=== PATIENT | male | born 1970 | race Caucasian/White ===

== ENCOUNTER 2017-09-13 10:49 | Observation (INO) | payer MEDICAID, SELFPAY ==
[2017-09-13 10:50] VITALS: BP 196/94; PULSE 88; RESP 16; TEMP 36.5; O2SAT 97; BMI 21.1
[2017-09-13 11:20] LABS: Absolute Lymphocyte Count 0.74 X10^3/ul (0.83-4.51); Absolute Neutrophil Count 6.1 X10^3/uL (2.0-7.7); Basophil# 0.08 X10^3/uL; Basophil% 1.1 % (0-1); Eosinophil# 0.03 X10^3/uL; Eosinophils% 0.4 % (0-5); Hematocrit 41.9 % (40-54); Hemoglobin 14.8 g/dl (13.0-16.5); Lymphocyte # 0.74 X10^3/ul (4.0); Lymphocyte % 9.8 % (19-41); Mean Corp Hgb Conc 35.3 g/gl (32-36); Mean Corpuscular Hgb 32.5 pg (27.0-32.0); Mean Corpuscular Volume 91.9 fL (80-94); Mean Platelet Vol. 10.4 fl (6.2-12.0); Monocyte# 0.59 X10^3/uL; Monocyte% 7.8 % (0-10); Neutrophil # 6.07 X10^3/uL (2.7-7.7); Neutrophil % 80.5 % (47-70); Platelet Count 73 K/mm3 (150-450); RBC Distribution Width CV 13.8 % (11.6-14.6); RBC Distribution Width SD 45.5 fl (35.1-43.9); Red Blood Count 4.56 M/mm3 (4.6-6.2); White Blood Count 7.5 K/mm3 (4.4-11.0)
[2017-09-13 11:21] LABS: POSITIVE COUNT NO; POSITIVE DIFFERENTIAL NO; POSITIVE MORPHOLOGY NO
[2017-09-13 11:32] LABS: International Normalized Ratio 0.9; Prothrombin Time (Protime)PT. 12.3 SECONDS (11.7-14.9)
[2017-09-13 11:43] LABS: AST(SGOT) 237 U/L (15-37); Alanine Aminotransfer ALT/SGPT 202 U/L (16-61); Alkaline Phosphatase 137 U/L (45-117); Anion Gap 11 (5-15); BUN 4 mg/dL (7-18); BUN/Creat Ratio 6.2 RATIO (10-20); Calcium,Total 8.8 mg/dL (8.5-10.1); Chloride 90 mmol/L (98-107); Creatinine, Serum 0.65 mg/dL (0.70-1.30); EST Glomerular Filtration Rate 138 mL/min (>60); Est Glom Filt Rate - Afr Amer 167 mL/min (>60); Estimated Creatinine Clearance 135.53 ml/min; Globulin 3.9 g/dL (2.2-4.2); Glucose 107 mg/dL (74-106); Potassium 4.2 mmol/L (3.5-5.1); Protein, Total 7.9 g/dL (6.4-8.2); Sodium Level 125 mmol/L (136-145)
[2017-09-13 12:46] VITALS: BP 174/99; PULSE 80; RESP 16; O2SAT 95
--- NOTE | 2017-09-13 12:49 | ED.DCSUM_ITS ---
- ER Visit Summary Date of Service: 09/13/17 Chief Complaint: Patient states she has not been feeling well for some time. History of Present Illness: The patient is a 47 M who states he feels worse. He states he drank jugs of water. He drank 5-6 jugs of water. He states he drinks 6 beers a day. His last alcohol consumption was last evening. He denies fever, chills night sweats. Denies weight loss. He denies his close being looser than normal. He is a smoker and does admit to cough. He denies any chest pain. He denies nausea, vomiting diarrhea. He reports increased urination. He denies dysuria or hematuria. He complains of tremors tingling sensation and not feeling his normal self. Review of systems otherwise negative. Physical Examination: Vital signs are marked for an elevated blood pressure 196/ 94. Head is atraumatic normocephalic. Pupils are equal round reactive. Extraocular muscles are intact. There is no papilledema and cup-to-disc ratio is normal. TMs are pearly white with landmarks noted. Nares patent with no drainage. Posterior pharynx without erythema or exudate. Uvula is midline. There is no dysphonia or dysphasia. Trachea is midline. There is no stridor with auscultation of the neck. Heart is regular without murmur, gallop or rub. S1 and S2 are normal. Lungs are clear to auscultation with good movement of air bilaterally. Abdomen is soft and nontender. There is no guarding or peritoneal findings. There is no palpable pulsatile mass. There is no abdominal bruit. Zabala sign is negative. Negative Rovsing sign. There is no evidence of inguinal or umbilical hernia. Neuro exam is remarkable for hyper reflexia, 10+ beats of clonus at the ankles. Negative Babinski sign. Motor sensory intact. Cranial 2 through 12 are intact. Gait was observed and normal. He is not well groomed and is closed are healthy. Test Results: CBC is unremarkable. Platelet count was 73,000 most likely secondary to his alcohol use. BMP is remarkable for sodium 125 and a chloride of 90. Hepatic profile reveals a total bili 1.3 alk phos 137 ALT of 202 and AST of 237. INR is 0.9. Emergency Department Course and Treatment: I await patient's tremors need to rule out hyponatremia doubt alcohol withdrawal since he drinks daily at night. Because of his drinking history will obtain PT/INR to evaluate for bleeding disorder/coagulopathy. Treatment Plan: N.p.o. fluid restriction normal saline Disposition: Admit to the hospital Impression: 1. Symptomatic hyponatremia secondary to water intoxication 2. Thrombocytopenia secondary to alcoholism 3. History of alcoholism consumption of 6 beers a day 4. History of tobacco use This note was generated with [employer] dictation software. It may contain incorrect words, spelling, and punctuation that were not noted in review of the chart prior to signing ED Disposition - Plan for ED Patient: Chief Complaint: General Illness
--- NOTE | 2017-09-13 13:09 | PCM.HP.STD ---
Problem List (1) COPD with acute exacerbation Status: Acute (2) Alcohol abuse Status: Chronic (3) Hyponatremia Status: Acute History of Present Illness Date of Admission: 09/13/17 Chief Complaint: shakiness The patient is a 47 year old M who has been under stress the past few weeks as he and his significant other have split up. Today, patient was shaky in arms and legs. Drank several 24 oz glasses of water and presented to the emergency room. In the ED, pt was found to be hyponatremic at 125. The hospitalist was asked to admit for hyponatremia. Pt states that also for the past few weeks that he has been having increasing DUTTON. Whereas previously, he'd be able to ambulate without any difficulty, now he has to stop to catch his breath.[] Past Medical History Past Medical History (Chronic Problems): Chronic Problems Alcohol abuse (Chronic) Allergies No Known Allergies Allergy (Verified 09/13/17 10:52) Home Medications: Ambulatory Orders Medication Instructions Recorded No Known/Unobtainable [No Known 01/03/16 Home Medications] Surgical History: - - left hip surgery and fractured pelvis from [facility] Psychiatric History: No pertinent psych hx Lives: Alone Smoking Status: Heavy Smoker (>10/day) Tobacco Use: Cigarettes Alcohol: Heavy - 6 beers/day Drugs: None - *Family History Maternal History Items: - - anxiety Paternal History Items: Heart Disease, - - father gasoline truck operator and had 2 heart attacks Review of Systems Constitutional: Denies: Chills, Fever, Weight Change Eyes: Denies: Blurred vision, Double vision HEENT: Denies: Head Aches, Sinus Congestion, Sinus Drainage Cardiovascular: Denies: Chest Pain, Palpitations Respiratory: Reports: Shortness of breath upon exertion. Denies: Sputum production Gastrointestinal: Reports: Diarrhea, Nausea. Denies: Vomiting Genitourinary: Denies: Dysuria, Hematuria Musculoskeletal: Denies: Arm Pain, Back Pain, Foot Pain, Hand Pain Skin: Denies: Rash, Wounds Neurological: Denies: Numbness, Tingling, Focal weakness Psychiatric: Denies: Anxiety, Depression Hematologic/ Lymphatic: Denies: Easy Bruising, Easy Bleeding, Hx of blood clot VTE Information - Inpt Only VTE Present on Admission: No VTE Pharm Prophylaxis ordered?: Yes Patient Problems: Active and Suspected Problems COPD with acute exacerbation (Acute) - Physical Exam General: Alert, Cooperative, No apparent distress HEENT: Atraumatic, Normocephalic Oral: Moist Mucosa, No Gingival or Mucosal Lesions/ Ulcerations Neck: No Nodes, Thyroid Normal Size and Texture Lungs: Diminished, Wheezes Cardiovascular: Regular rate, Regular Rhythm, Normal S1, Normal S2, No murmurs Abdomen: Bowel Sounds Present, Soft, Non Tender, Non-Distended Extremities: No edema, No Calf Tenderness Skin: No rashes, No breakdown Musculoskeletal: No Tenderness to Palpation of Joints or Extremities, No Muscle Wasting Neurological: Muscle tone normal Psych/Mental Status: Normal Affect, Appropriate Vital Signs Temp Pulse Resp BP Pulse Ox 36.5 C L 80 16 174/99 H 95 09/13/17 10:50 09/13/17 12:46 09/13/17 12:46 09/13/17 12:46 09/13/17 12:46 Oxygen Delivery Method Room Air Assessment/Plan Active and Suspected Problems COPD with acute exacerbation (Acute) 1. Hyponatremia: not sure if acute or chronic Normal saline check TSH, urine Osm and Na, serum osm due to beer potomania, excess water intake v other 2. AECOPD: never been diagnosed with COPD aerosols, prednisone x 5 follow up with pulmonology 3. Alcohol abuse not sure if tremulousness is related or not CIWA 4. DVT proph: LMWH Code Visit Inpatient E&M: 31116 Init Hosp L3
--- NOTE | 2017-09-13 13:15 | RAD_ITS ---
STUDY: X-RAY CHEST REASON FOR EXAM: Male, 47 years old. 2 week history of shortness of breath. Hyponatremia. TECHNIQUE: PA and lateral views of the chest. COMPARISON: Comparison is made with prior study dated July 17, 2014. FINDINGS: Hyperinflation. Scattered calcified granulomas. There is no demonstrated pleural abnormality. Normal size heart. Normal mediastinum and suleiman. Normal visualized pulmonary arteries. Normal visualized aortic arch and descending thoracic aorta. There are mild degenerative changes of the visualized thoracic spine. Normal visualized ribs, clavicles, and shoulders. There is no demonstrated abnormality of the visualized soft tissue structures of the upper abdomen. RAD/Chest PA and Lateral IMPRESSION: Hyperinflation. No acute abnormality is seen. Electronically Signed: Alex Chu MD at 15:05 EST Tel [phone], Service support ,
--- NOTE | 2017-09-13 13:23 | HP.PCM_ITS ---
Problem List (1) COPD with acute exacerbation Status: Acute (2) Alcohol abuse Status: Chronic (3) Hyponatremia Status: Acute History of Present Illness Date of Admission: 09/13/17 Chief Complaint: shakiness The patient is a 47 year old M who has been under stress the past few weeks as he and his significant other have split up. Today, patient was shaky in arms and legs. Drank several 24 oz glasses of water and presented to the emergency room. In the ED, pt was found to be hyponatremic at 125. The hospitalist was asked to admit for hyponatremia. Pt states that also for the past few weeks that he has been having increasing DUTTON. Whereas previously, he'd be able to ambulate without any difficulty, now he has to stop to catch his breath.[] Past Medical History Past Medical History (Chronic Problems): Chronic Problems Alcohol abuse (Chronic) Allergies No Known Allergies Allergy (Verified 09/13/17 10:52) Home Medications: Ambulatory Orders Medication Instructions Recorded No Known/Unobtainable [No Known 01/03/16 Home Medications] Surgical History: - - left hip surgery and fractured pelvis from [facility] Psychiatric History: No pertinent psych hx Lives: Alone Smoking Status: Heavy Smoker (>10/day) Tobacco Use: Cigarettes Alcohol: Heavy - 6 beers/day Drugs: None - *Family History Maternal History Items: - - anxiety Paternal History Items: Heart Disease, - - father national van truck driver and had 2 heart attacks Review of Systems Constitutional: Denies: Chills, Fever, Weight Change Eyes: Denies: Blurred vision, Double vision HEENT: Denies: Head Aches, Sinus Congestion, Sinus Drainage Cardiovascular: Denies: Chest Pain, Palpitations Respiratory: Reports: Shortness of breath upon exertion. Denies: Sputum production Gastrointestinal: Reports: Diarrhea, Nausea. Denies: Vomiting Genitourinary: Denies: Dysuria, Hematuria Musculoskeletal: Denies: Arm Pain, Back Pain, Foot Pain, Hand Pain Skin: Denies: Rash, Wounds Neurological: Denies: Numbness, Tingling, Focal weakness Psychiatric: Denies: Anxiety, Depression Hematologic/ Lymphatic: Denies: Easy Bruising, Easy Bleeding, Hx of blood clot VTE Information - Inpt Only VTE Present on Admission: No VTE Pharm Prophylaxis ordered?: Yes Patient Problems: Active and Suspected Problems COPD with acute exacerbation (Acute) - Physical Exam General: Alert, Cooperative, No apparent distress HEENT: Atraumatic, Normocephalic Oral: Moist Mucosa, No Gingival or Mucosal Lesions/ Ulcerations Neck: No Nodes, Thyroid Normal Size and Texture Lungs: Diminished, Wheezes Cardiovascular: Regular rate, Regular Rhythm, Normal S1, Normal S2, No murmurs Abdomen: Bowel Sounds Present, Soft, Non Tender, Non-Distended Extremities: No edema, No Calf Tenderness Skin: No rashes, No breakdown Musculoskeletal: No Tenderness to Palpation of Joints or Extremities, No Muscle Wasting Neurological: Muscle tone normal Psych/Mental Status: Normal Affect, Appropriate Vital Signs Temp Pulse Resp BP Pulse Ox 36.5 C L 80 16 174/99 H 95 09/13/17 10:50 09/13/17 12:46 09/13/17 12:46 09/13/17 12:46 09/13/17 12:46 Oxygen Delivery Method Room Air Assessment/Plan Active and Suspected Problems COPD with acute exacerbation (Acute) 1. Hyponatremia: * not sure if acute or chronic * Normal saline * check TSH, urine Osm and Na, serum osm * due to beer potomania, excess water intake v other 2. AECOPD: * never been diagnosed with COPD * aerosols, prednisone x 5 * follow up with pulmonology 3. Alcohol abuse * not sure if tremulousness is related or not * CIWA 4. DVT proph: * LMWH Code Visit Inpatient E&M: 39617 Init Hosp L3
[2017-09-13 13:48] VITALS: BP 150/95; PULSE 62; RESP 18; TEMP 36.7; O2SAT 98
[2017-09-13 13:48] LABS: Thyroid Stim Hormone (TSH) 1.66 uIU/mL (0.358-3.74)
[2017-09-13 13:50] VITALS: BMI 20.7
[2017-09-13 14:51] LABS: Osmolality, Serum 262 mOsm/KG (275-295)
[2017-09-13] MEDS: 0.9% Normal Saline 1,000 ML 125 ML IV (15:01)
[2017-09-13] MEDS: Albuterol 2.5 MG/3 ML VIAL.NEB. INHALATION (15:36)
[2017-09-13 15:37] VITALS: PULSE 77; RESP 16; O2SAT 98; BMI 20.7
[2017-09-13 18:23] LABS: Color, Urine Yellow (Yellow); Glucose, Dipstick Normal (Normal); Ketone-Dipstick Negative (Negative); Leukocyte Esterase-Dipstick Negative /ul (Negative); Nitrite-Dipstick Negative (Negative); Occult Blood-Urine 10 /ul (Negative); Protein-Dipstick Negative (Negative); Specific Gravity, Urine 1.005 (1.002-1.030); Urine Bilirubin Dipstick Negative (Negative); Urine Clarity Clear (Clear); Urine Urobilinogen Normal (Normal)
[2017-09-13 18:29] LABS: Urine Sodium 13 mmol/L (Not Establ.)
[2017-09-13] MEDS: Ipratropium/Albuterol Sulfate 3 ML AMPUL.NEB INHALATION (19:25)
[2017-09-13 19:26] VITALS: PULSE 79; RESP 16
[2017-09-13 19:48] VITALS: BP 123/77; PULSE 80; RESP 16; TEMP 36.8; O2SAT 97
[2017-09-13 22:23] LABS: Osmolality, Urine 74 mOsm/KG
[2017-09-14] MEDS: 0.9% Normal Saline 1,000 ML 125 ML IV ×2 (00:15→06:28)
[2017-09-14 02:00] VITALS: BP 136/88; PULSE 52; RESP 16; TEMP 36.8; O2SAT 99
[2017-09-14 06:28] LABS: AST(SGOT) 181 U/L (15-37); Alanine Aminotransfer ALT/SGPT 177 U/L (16-61); Albumin, Serum 3.3 g/dL (3.2-5.0); Alkaline Phosphatase 147 U/L (45-117); Anion Gap 8 (5-15); BUN 6 mg/dL (7-18); BUN/Creat Ratio 8.4 RATIO (10-20); Calcium,Total 8.5 mg/dL (8.5-10.1); Chloride 101 mmol/L (98-107); Creatinine, Serum 0.71 mg/dL (0.70-1.30); EST Glomerular Filtration Rate 124 mL/min (>60); Est Glom Filt Rate - Afr Amer 151 mL/min (>60); Estimated Creatinine Clearance 119.62 ml/min; Globulin 3.4 g/dL (2.2-4.2); Glucose 99 mg/dL (74-106); Potassium 3.6 mmol/L (3.5-5.1); Protein, Total 6.7 g/dL (6.4-8.2); Sodium Level 138 mmol/L (136-145)
[2017-09-14] MEDS: Ipratropium/Albuterol Sulfate 3 ML AMPUL.NEB INHALATION (06:31)
[2017-09-14 06:32] VITALS: PULSE 70; RESP 16; O2SAT 98
[2017-09-14 08:26] VITALS: BP 147/93; PULSE 67; RESP 18; TEMP 36.9; O2SAT 96
[2017-09-14] MEDS: Folic Acid 1 MG Tablet PO (08:32)
[2017-09-14] MEDS: Enoxaparin 40 MG/0.4 ML Syringe SC (08:32)
[2017-09-14] MEDS: Thiamine Hydrochloride 100 MG Tablet PO (08:32)
--- NOTE | 2017-09-14 08:51 | PCM.PN.HOSP ---
Patient Problems: Active and Suspected Problems COPD with acute exacerbation (Acute) Subjective: Still with tremulousness. States that he is not been short of breath going to the bathroom but has not really exerted himself like he would normally to see if he would get more short of breath. States that he lost his job a few weeks ago and since then has not been drinking as much as he initially reported of 6 drinks per day. States that he goes days without drinking but did have 2 drinks about 2 days ago. Vitals/I&O's: Vital Signs Temp Pulse Resp BP Pulse Ox 36.9 C 67 18 147/93 H 96 09/14/17 08:26 09/14/17 08:26 09/14/17 08:26 09/14/17 08:26 09/14/17 08:26 Oxygen Delivery Method Room Air Weight: 67.2 kg Body Mass Index (BMI) 20.7 Intake and Output for Last 24 Hours 09/12/17 09/13/17 09/14/17 23:59 23:59 23:59 Intake Total 855 / 855 2793 / 2793 Output Total 225 / 225 Balance 630 / 630 2793 / 2793 General: Alert, Cooperative, No apparent distress HEENT: Atraumatic, Normocephalic Neck: No Nodes, Thyroid Normal Size and Texture Lungs: Clear to auscultation, Normal air movement, No rhonchi, No wheeze Cardiovascular: Regular rate, Regular Rhythm, Normal S1, Normal S2, No murmurs Abdomen: Bowel Sounds Present, Soft, Non Tender, Non-Distended, No Hepato-splenomegaly, Passing Flatus Extremities: No edema, No Calf Tenderness Skin: No rashes, No breakdown Psych/Mental Status: Normal Affect, Appropriate Microbiology Past 72 Hours 09/13/17 16:45 Stool C. difficile DNA Amplification - Final Laboratory Results 09/13/17 17:50: Urine Color Yellow, Urine Clarity Clear, Urine pH 7.0, Ur Specific [place] 1.005, Urine Protein Negative, Urine Glucose (UA) Normal, Urine Ketones Negative, Urine Occult Blood 10 H, Urine Nitrite Negative, Urine Bilirubin Negative, Urine Urobilinogen Normal, Ur Leukocyte Esterase Negative 09/13/17 17:50: Urine Osmolality 74 09/13/17 17:50: Ur Random Sodium 13 09/14/17 05:43: Sodium 138, Potassium 3.6, Chloride 101, Carbon Dioxide 29.0, Anion Gap 8, BUN 6 L, Creatinine 0.71, Estim Creat Clear Calc 119.62, Est GFR (MDRD) Af Amer 151, Est GFR (MDRD) Non-Af 124, BUN/Creatinine Ratio 8.4 L, Glucose 99, Calcium 8.5, Total Bilirubin 1.00, AST 181 H, ALT 177 H, Alkaline Phosphatase 147 H, Total Protein 6.7, Albumin 3.3, Globulin 3.4, Albumin/Globulin Ratio 1.0 Current Medications Acetaminophen (Tylenol) 650 mg PO Q6H PRN PRN PRN Reason: Mild Pain (1-3)/Temp > 100.7 F Albuterol Sulfate (Ventolin Aerosols) 2.5 mg INHALATION Q2H PRN PRN PRN Reason: SHORTNESS OF BREATH Last Admin: 09/13/17 15:36 Dose: 2.5 mg Albuterol/Ipratropium (Duoneb) 3 ml INHALATION Q6HWA.RT [facility] Last Admin: 09/14/17 06:31 Dose: 3 ml Enoxaparin Sodium (Lovenox) 40 mg SC DAILY@1000 [facility] Last Admin: 09/14/17 08:32 Dose: 40 mg Folic Acid (Folic Acid) 1 mg PO DAILY@0800 [facility] Last Admin: 09/14/17 08:32 Dose: 1 mg Sodium Chloride () 1,000 mls @ 125 mls/hr IV .Q8H [facility] Last Admin: 09/14/17 06:28 Dose: 125 mls/hr Lorazepam (Ativan) 2 mg PO Q2H PRN PRN; Protocol PRN Reason: CIWA score > 8 but <15 Lorazepam (Ativan) 2 mg PO UD PRN; Protocol PRN Reason: CIWA score >/=15. Magnesium Hydroxide (Milk Of Magnesia) 30 ml PO DAILY PRN PRN PRN Reason: Constipation Ondansetron HCl (Zofran) 4 mg IV Q8H PRN PRN PRN Reason: NAUSEA Prednisone (Prednisone) 40 mg PO DAILY@0800 [facility] Last Admin: 09/14/17 08:32 Dose: 40 mg [facility]) [facility] Last Admin: 09/14/17 08:32 Dose: 100 mg Assessment/Plan Active and Suspected Problems COPD with acute exacerbation (Acute) 1. Hyponatremia: Resolved with IV fluids. Have been related with his copious ingestion of free water Recommend further outpatient follow-up in regards to this. TSH was normal 2. AECOPD: never been diagnosed with COPD aerosols, prednisone x 5 follow up with pulmonology Albuterol MDI 3. Alcohol abuse not sure if tremulousness is related or not Patient states that he is only a couple beers intermittently since losing his job a few weeks ago. Patient's liver function tests were slightly more elevated upon admission than they are today and actually improved. Not sure if this is related with acute alcohol ingestion or not. I have advised patient not to drink any further and to have further follow-up in regards to his liver function test. 4. Tremulousness The patient still ongoing but is able to shake my hand without obvious tremors. Unclear etiology of this patient still reporting this despite correction of his sodium. Patient I do not feel is going to acute alcohol withdrawal that would explain his tremors as well. Could be anxiety but would further outpatient follow-up with primary care doctor in perhaps further direct him to other testing or specialist. Discharge home.
--- NOTE | 2017-09-14 08:56 | PN_ITS ---
Patient Problems: Active and Suspected Problems COPD with acute exacerbation (Acute) Subjective: Still with tremulousness. States that he is not been short of breath going to the bathroom but has not really exerted himself like he would normally to see if he would get more short of breath. States that he lost his job a few weeks ago and since then has not been drinking as much as he initially reported of 6 drinks per day. States that he goes days without drinking but did have 2 drinks about 2 days ago. Vitals/I&O's: Vital Signs Temp Pulse Resp BP Pulse Ox 36.9 C 67 18 147/93 H 96 09/14/17 08:26 09/14/17 08:26 09/14/17 08:26 09/14/17 08:26 09/14/17 08:26 Oxygen Delivery Method Room Air Weight: 67.2 kg Body Mass Index (BMI) 20.7 Intake and Output for Last 24 Hours 09/12/17 09/13/17 09/14/17 23:59 23:59 23:59 Intake Total 855 / 855 2793 / 2793 Output Total 225 / 225 Balance 630 / 630 2793 / 2793 General: Alert, Cooperative, No apparent distress HEENT: Atraumatic, Normocephalic Neck: No Nodes, Thyroid Normal Size and Texture Lungs: Clear to auscultation, Normal air movement, No rhonchi, No wheeze Cardiovascular: Regular rate, Regular Rhythm, Normal S1, Normal S2, No murmurs Abdomen: Bowel Sounds Present, Soft, Non Tender, Non-Distended, No Hepato- splenomegaly, Passing Flatus Extremities: No edema, No Calf Tenderness Skin: No rashes, No breakdown Psych/Mental Status: Normal Affect, Appropriate Microbiology Past 72 Hours 09/13/17 16:45 Stool C. difficile DNA Amplification - Final Laboratory Results 09/13/17 17:50: Urine Color Yellow, Urine Clarity Clear, Urine pH 7.0, Ur Specific [place] 1.005, Urine Protein Negative, Urine Glucose (UA) Normal, Urine Ketones Negative, Urine Occult Blood 10 H, Urine Nitrite Negative, Urine Bilirubin Negative, Urine Urobilinogen Normal, Ur Leukocyte Esterase Negative 09/13/17 17:50: Urine Osmolality 74 09/13/17 17:50: Ur Random Sodium 13 09/14/17 05:43: Sodium 138, Potassium 3.6, Chloride 101, Carbon Dioxide 29.0, Anion Gap 8, BUN 6 L, Creatinine 0.71, Estim Creat Clear Calc 119.62, Est GFR ( MDRD) Af Amer 151, Est GFR (MDRD) Non-Af 124, BUN/Creatinine Ratio 8.4 L, Glucose 99, Calcium 8.5, Total Bilirubin 1.00, AST 181 H, ALT 177 H, Alkaline Phosphatase 147 H, Total Protein 6.7, Albumin 3.3, Globulin 3.4, Albumin/ Globulin Ratio 1.0 Current Medications Acetaminophen (Tylenol) 650 mg PO Q6H PRN PRN PRN Reason: Mild Pain (1-3)/Temp > 100.7 F Albuterol Sulfate (Ventolin Aerosols) 2.5 mg INHALATION Q2H PRN PRN PRN Reason: SHORTNESS OF BREATH Last Admin: 09/13/17 15:36 Dose: 2.5 mg Albuterol/Ipratropium (Duoneb) 3 ml INHALATION Q6HWA.RT [facility] Last Admin: 09/14/17 06:31 Dose: 3 ml Enoxaparin Sodium (Lovenox) 40 mg SC DAILY@1000 [facility] Last Admin: 09/14/17 08:32 Dose: 40 mg Folic Acid (Folic Acid) 1 mg PO DAILY@0800 [facility] Last Admin: 09/14/17 08:32 Dose: 1 mg Sodium Chloride () 1,000 mls @ 125 mls/hr IV .Q8H [facility] Last Admin: 09/14/17 06:28 Dose: 125 mls/hr Lorazepam (Ativan) 2 mg PO Q2H PRN PRN; Protocol PRN Reason: CIWA score > 8 but <15 Lorazepam (Ativan) 2 mg PO UD PRN; Protocol PRN Reason: CIWA score >/=15. Magnesium Hydroxide (Milk Of Magnesia) 30 ml PO DAILY PRN PRN PRN Reason: Constipation Ondansetron HCl (Zofran) 4 mg IV Q8H PRN PRN PRN Reason: NAUSEA Prednisone (Prednisone) 40 mg PO DAILY@0800 [facility] Last Admin: 09/14/17 08:32 Dose: 40 mg [facility]) [facility] Last Admin: 09/14/17 08:32 Dose: 100 mg Assessment/Plan Active and Suspected Problems COPD with acute exacerbation (Acute) 1. Hyponatremia: * Resolved with IV fluids. * Have been related with his copious ingestion of free water * Recommend further outpatient follow-up in regards to this. * TSH was normal 2. AECOPD: * never been diagnosed with COPD * aerosols, prednisone x 5 * follow up with pulmonology * Albuterol MDI 3. Alcohol abuse * not sure if tremulousness is related or not * Patient states that he is only a couple beers intermittently since losing his job a few weeks ago. Patient's liver function tests were slightly more elevated upon admission than they are today and actually improved. Not sure if this is related with acute alcohol ingestion or not. I have advised patient not to drink any further and to have further follow-up in regards to his liver function test. 4. Tremulousness * The patient still ongoing but is able to shake my hand without obvious tremors. * Unclear etiology of this patient still reporting this despite correction of his sodium. Patient I do not feel is going to acute alcohol withdrawal that would explain his tremors as well. Could be anxiety but would further outpatient follow-up with primary care doctor in perhaps further direct him to other testing or specialist. Discharge home.
--- NOTE | 2017-09-14 09:00 | PCM.DC ---
- Discharge Diagnoses Current Active Problems: Current Active and Chronic Problems COPD with acute exacerbation (Acute) Alcohol abuse (Chronic) You will use the following diet at home:: No restrictions Your food should be the consistency of: Regular Your liquids should be the consistency of: Regular/Thin Discharge Activity: Return to Normal Activity Call your doctor if you observe: Fever of 101 or Higher, Shortness of breath Allergies/Adverse Reactions: Allergies No Known Allergies Allergy (Verified 09/13/17 10:52) Medications to take at Discharge Albuterol Inhaler [Ventolin Hfa] 1 - 2 puff INHALATION Q4H PRN PRN #1 inhaler 09/14/17 Nicotine [Nicotine Patch] 1 ea TD DAILY #14 patch.[id number] 09/14/17 Prednisone 4 tab PO DAILY #12 tab 09/14/17 The following prescriptions were given: Albuterol Inhaler [Ventolin Hfa] 1 - 2 puff INHALATION Q4H PRN PRN #1 inhaler PRN Reason: Shortness Of Breath Nicotine [Nicotine Patch] 1 ea TD DAILY #14 patch.[id number] Prednisone 4 tab PO DAILY #12 tab Primary Care Physician: Care Physician,No Primary [Primary Care Provider] - Please Follow Up With: Radha Seaman MD - call for appointment [phone] When: 2 weeks Proposed Discharge Date: 09/14/17
--- NOTE | 2017-09-14 09:09 | DCINST_ITS ---
- Discharge Diagnoses Current Active Problems: Current Active and Chronic Problems COPD with acute exacerbation (Acute) Alcohol abuse (Chronic) You will use the following diet at home:: No restrictions Your food should be the consistency of: Regular Your liquids should be the consistency of: Regular/Thin Discharge Activity: Return to Normal Activity Call your doctor if you observe: Fever of 101 or Higher, Shortness of breath Allergies/Adverse Reactions: Allergies No Known Allergies Allergy (Verified 09/13/17 10:52) Medications to take at Discharge Albuterol Inhaler [Ventolin Hfa] 1 - 2 puff INHALATION Q4H PRN PRN #1 inhaler Nicotine [Nicotine Patch] 1 ea TD DAILY #14 patch.[id number] 09/14/17 Prednisone 4 tab PO DAILY #12 tab 09/14/17 The following prescriptions were given: Albuterol Inhaler [Ventolin Hfa] 1 - 2 puff INHALATION Q4H PRN PRN #1 inhaler PRN Reason: Shortness Of Breath Nicotine [Nicotine Patch] 1 ea TD DAILY #14 patch.[id number] Prednisone 4 tab PO DAILY #12 tab Primary Care Physician: Care Physician,No Primary [Primary Care Provider] - Please Follow Up With: Radha Seaman MD - call for appointment [phone] When: 2 weeks Proposed Discharge Date: 09/14/17
--- NOTE | 2017-09-14 09:10 | PCM.DC.SUM ---
Discharge Date and Diagnosis - Problem List Patient Problems: Active and Suspected Problems COPD with acute exacerbation (Acute) Hyponatremia (Acute) Date of Admission: 09/13/17 Date of Discharge: 09/14/17 - Primary Discharge Diagnosis Active and Suspected Problems COPD with acute exacerbation (Acute) - Secondary Discharge Diagnosis Chronic Problems Alcohol abuse (Chronic) Hospital Course and Treatment Imaging Results: Clinical Impression(s) from Imaging Studies Chest X-Ray 09/13/17 13:15 IMPRESSION: Hyperinflation. No acute abnormality is seen. Electronically Signed: Alex Chu MD at 15:05 EST Tel [phone], Service support , Operations: None Procedures: None Summary of Care Provided: The patient is a 47 year old M is with tremulousness. Prior to his coming to the emergency room, patient consumed several large quantities of water. Patient's sodium is 125. Concern from the emergency room physician was that patient had a stress test due to his hyponatremia. Patient was brought in and started on saline. And that the patient sodiums was likely due to an consuming a large amount of free water but did not explain his tremulousness as he still has it. We will check a TSH which was normal so he is not hyper or hypothyroid to be causing that as well. Patient has recently undergone some changes into his life having lost his job and split up from his significant other in the past few weeks. Possible could be anxiety related as well. But patient does also complain of some shortness of breath with exertion. On exam patient did have some audible expiratory wheezes. Chest x-ray shows some hyperinflation. Concern is the patient has underlying COPD as he is an active smoker. Patient will be continued on the 5 days of prednisone which was started on the seventh. Patient will need outpatient lab work with a BMP and also LFTs. Patient did have some slightly elevated LFTs upon admission. Probably feel there is a related with alcohol but but those are slightly improved. I have not provide the patient any prescription as he does not have a primary care provider. Given the patient information for primary care for his provider to follow-up with if he so chooses also have recommended he follow-up with pulmonology as well in regards to further evaluation to verify the patient does have COPD or not. Vision expressed understanding of the instructions that I provided him. [] Discharge Diet: No Restrictions Discharge Activity: Return to Normal Activity Call your doctor if you observe: Fever of 101 or Higher, Shortness of breath Home Medications: Medications to take at Discharge Albuterol Inhaler [Ventolin Hfa] 1 - 2 puff INHALATION Q4H PRN PRN #1 inhaler 09/14/17 Nicotine [Nicotine Patch] 1 ea TD DAILY #14 patch.[email or web address] 09/14/17 Prednisone 4 tab PO DAILY #12 tab 09/14/17 Following Prescrptions Were Given to Patient: Albuterol Inhaler [Ventolin Hfa] 1 - 2 puff INHALATION Q4H PRN PRN #1 inhaler PRN Reason: Shortness Of Breath Nicotine [Nicotine Patch] 1 ea TD DAILY #14 patch.[email or web address] Prednisone 4 tab PO DAILY #12 tab Primary Care Physician: Care Physician,No Primary [Primary Care Provider] - Please Follow Up With: Radha Seaman MD - call for appointment [phone] When: 2 weeks Please Follow Up With: Asaf Graham MD - Pulmonolgy When: 1-2 months Disposition: Home Minutes spent on discharge:: 32 Patient Condition:: Fair Meaningful Use Info Meaningful Use Diagnoses (Choose all that apply): None applicable Code Visit Inpatient E&M: 61941 Disch Hosp
--- NOTE | 2017-09-14 09:15 | DS.PCM_ITS ---
Discharge Date and Diagnosis - Problem List Patient Problems: Active and Suspected Problems COPD with acute exacerbation (Acute) Hyponatremia (Acute) Date of Admission: 09/13/17 Date of Discharge: 09/14/17 - Primary Discharge Diagnosis Active and Suspected Problems COPD with acute exacerbation (Acute) - Secondary Discharge Diagnosis Chronic Problems Alcohol abuse (Chronic) Hospital Course and Treatment Imaging Results: Clinical Impression(s) from Imaging Studies Chest X-Ray 09/13/17 13:15 IMPRESSION: Hyperinflation. No acute abnormality is seen. Electronically Signed: Alex Chu MD at 15:05 EST Tel [phone], Service support , Operations: None Procedures: None Summary of Care Provided: The patient is a 47 year old M is with tremulousness. Prior to his coming to the emergency room, patient consumed several large quantities of water. Patient 's sodium is 125. Concern from the emergency room physician was that patient had a stress test due to his hyponatremia. Patient was brought in and started on saline. And that the patient sodiums was likely due to an consuming a large amount of free water but did not explain his tremulousness as he still has it. We will check a TSH which was normal so he is not hyper or hypothyroid to be causing that as well. Patient has recently undergone some changes into his life having lost his job and split up from his significant other in the past few weeks. Possible could be anxiety related as well. But patient does also complain of some shortness of breath with exertion. On exam patient did have some audible expiratory wheezes. Chest x-ray shows some hyperinflation. Concern is the patient has underlying COPD as he is an active smoker. Patient will be continued on the 5 days of prednisone which was started on the seventh. Patient will need outpatient lab work with a BMP and also LFTs. Patient did have some slightly elevated LFTs upon admission. Probably feel there is a related with alcohol but but those are slightly improved. I have not provide the patient any prescription as he does not have a primary care provider. Given the patient information for primary care for his provider to follow-up with if he so chooses also have recommended he follow-up with pulmonology as well in regards to further evaluation to verify the patient does have COPD or not. Vision expressed understanding of the instructions that I provided him. [ ] Discharge Diet: No Restrictions Discharge Activity: Return to Normal Activity Call your doctor if you observe: Fever of 101 or Higher, Shortness of breath Home Medications: Medications to take at Discharge Albuterol Inhaler [Ventolin Hfa] 1 - 2 puff INHALATION Q4H PRN PRN #1 inhaler Nicotine [Nicotine Patch] 1 ea TD DAILY #14 patch.[email or web address] 09/14/17 Prednisone 4 tab PO DAILY #12 tab 09/14/17 Following Prescrptions Were Given to Patient: Albuterol Inhaler [Ventolin Hfa] 1 - 2 puff INHALATION Q4H PRN PRN #1 inhaler PRN Reason: Shortness Of Breath Nicotine [Nicotine Patch] 1 ea TD DAILY #14 patch.[email or web address] Prednisone 4 tab PO DAILY #12 tab Primary Care Physician: Care Physician,No Primary [Primary Care Provider] - Please Follow Up With: Radha Seaman MD - call for appointment [phone] When: 2 weeks Please Follow Up With: Asaf Graham MD - Pulmonolgy When: 1-2 months Disposition: Home Minutes spent on discharge:: 32 Patient Condition:: Fair Meaningful Use Info Meaningful Use Diagnoses (Choose all that apply): None applicable Code Visit Inpatient E&M: 63967 Disch Hosp
== END 2017-09-14 10:40 | disposition home or self-care (01) | DRG 191 ==
LOC: ED 11:11 → MS2 12:38
PROVIDERS: Emergency Provider Emergency Medicine
DX: J44.1 Chronic obstructive pulmonary disease with (acute) exacerbation (principal); E87.1 Hypo-osmolality and hyponatremia; F17.210 Nicotine dependence, cigarettes, uncomplicated; F10.10 Alcohol abuse, uncomplicated; D69.59 Other secondary thrombocytopenia
CPT/HCPCS: 36415; 71046; 80053; 81002; 83930; 83935; 84300; 84443; 85025; 85610; 87493; 94640; 96360; 96361; 96372; 97802; 99218; 99285; J7030; A4216; G0378

== ENCOUNTER 2018-11-16 02:57 | Emergency (ER) | payer SELFPAY ==
[2018-11-16 02:58] VITALS: BP 128/96; PULSE 98; RESP 18; TEMP 36.4; O2SAT 93; BMI 23.1
--- NOTE | 2018-11-16 03:18 | EKG12_ITS ---
Test Reason : Blood Pressure : / mmHG Vent. Rate : 081 BPM Atrial Rate : 081 BPM P-R Int : 172 ms QRS Dur : 096 ms QT Int : 386 ms P-R-T Axes : 086 083 060 degrees QTc Int : 448 ms Normal sinus rhythm Septal infarct , age undetermined Abnormal ECG Confirmed by ALEJO BOLANOS ([id number]), field map editor ROD GALVEZ ([id number]) on 11/19/2018 2:03:31 PM Referred By: TRISH Confirmed By:ALEJO BOLANOS
--- NOTE | 2018-11-16 03:20 | CT_ITS ---
STUDY: CTA OF THE ABDOMINAL AORTA AND BILATERAL LOWER EXTREMITIES REASON FOR EXAM: Male, 48 years old. Left leg numbness. RADIATION DOSAGE (If Supplied By Facility): CTDIvol = ( 9.52 ) mGy, DLP = ( 1256.25 ) mGycm TECHNIQUE: Axial CT angiography multi-detector data acquisition was obtained from the the upper abdomen to the ankle following intravenous administration of 100ML IV Isovue 370. Axial images and MIP images were reconstructed from the axial data set. Post-processing of the angiographic images was performed, with multiplanar reformation and 3D reconstruction. Individualized dose optimization techniques were used for this CT. TECHNICAL QUALITY: Good COMPARISON: None. Descriptors of Narrowing: None (0%) Mild (< 50%) Moderate (50-70%) Severe (70-90%) Subtotal/Total Occlusion (90-100%) Non-Evaluable (technically non-diagnostic FINDINGS: Abdominal aorta: Mild atherosclerotic changes. No demonstrated narrowing. Left renal artery(arteries): Mild atherosclerotic changes. No demonstrated narrowing Right common iliac artery: Mild atherosclerotic changes. No demonstrated narrowing Right external iliac artery: Mild atherosclerotic changes. No demonstrated narrowing Right internal iliac artery: Mild atherosclerotic changes. No demonstrated narrowing Left common iliac artery: There is occlusion of the left common iliac artery most likely due to thrombus Left external iliac artery: There is occlusion of the proximal left external iliac artery also consistent with a thrombus. Left internal iliac artery: There is occlusion of the origin of the left internal iliac artery also consistent with a thrombus. RIGHT LOWER EXTREMITY Right common femoral artery: Mild atherosclerotic changes. No demonstrated narrowing Right profundus femoris: No demonstrated narrowing. Right superficial femoral: No demonstrated narrowing. Right popliteal artery: Mild atherosclerotic changes. No demonstrated narrowing Right tibioperoneal trunk: No demonstrated narrowing. Right anterior tibial artery: No demonstrated narrowing. Right posterior tibial artery: No demonstrated narrowing. Right peroneal artery: No demonstrated narrowing. LEFT LOWER EXTREMITY Left common femoral artery: Mild atherosclerotic changes. No demonstrated narrowing Left profundus femoris: No demonstrated narrowing. Left superficial femoral: No demonstrated narrowing. Left popliteal artery: No demonstrated narrowing. Left tibioperoneal trunk: Mild atherosclerotic changes. No demonstrated narrowing Left anterior tibial artery: No demonstrated narrowing. Left posterior tibial artery: No demonstrated narrowing. Left peroneal artery: No demonstrated narrowing. There is fatty infiltration of the liver. The visualized part of the pancreas, kidneys, spleen show no abnormality. Old healed fractures are seen in the right and left pubic rami. CT/CTA Abd w/Runoff W/WO Contrast IMPRESSION: There is occlusion of the left common iliac artery, left external iliac artery and proximal part of left internal iliac artery due to a thrombus. There is reconstitution of the distal left external iliac artery by collaterals. Electronically Signed: Vern Mcgill, at 5:12 EDT Tel , Service support ,
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
[2018-11-16 03:30] LABS: Absolute Lymphocyte Count 3.63 X10^3/ul (0.83-4.51); Absolute Neutrophil Count 3.9 X10^3/uL (2.0-7.7); Basophil# 0.06 X10^3/uL; Basophil% 0.7 % (0-1); Eosinophil# 0.15 X10^3/uL; Eosinophils% 1.8 % (0-5); Hematocrit 47.3 % (40-54); Hemoglobin 16.6 g/dl (13.0-16.5); Lymphocyte # 3.63 X10^3/ul (4.0); Lymphocyte % 43.2 % (19-41); Mean Corp Hgb Conc 35.1 g/gl (32-36); Mean Corpuscular Hgb 31.5 pg (27.0-32.0); Mean Corpuscular Volume 89.8 fL (80-94); Mean Platelet Vol. 9.5 fl (6.2-12.0); Monocyte# 0.68 X10^3/uL; Monocyte% 8.1 % (0-10); Neutrophil # 3.87 X10^3/uL (2.7-7.7); Platelet Count 144 K/mm3 (150-450); RBC Distribution Width CV 14.2 % (11.6-14.6); RBC Distribution Width SD 46.7 fl (35.1-43.9); Red Blood Count 5.27 M/mm3 (4.6-6.2); White Blood Count 8.4 K/mm3 (4.4-11.0)
[2018-11-16 03:31] LABS: POSITIVE COUNT NO; POSITIVE DIFFERENTIAL NO; POSITIVE MORPHOLOGY NO
[2018-11-16 03:38] LABS: International Normalized Ratio 1.1; Prothrombin Time (Protime)PT. 13.5 SECONDS (11.7-14.9)
[2018-11-16 03:39] LABS: Partial Thromboplast Time 26.1 Seconds (24.1-36.2)
[2018-11-16 03:45] LABS: Anion Gap 16 (5-15); BUN 5 mg/dL (7-18); BUN/Creat Ratio 6.2 RATIO (10-20); Calcium,Total 8.8 mg/dL (8.5-10.1); Chloride 101 mmol/L (98-107); Creatinine, Serum 0.81 mg/dL (0.70-1.30); EST Glomerular Filtration Rate 107 mL/min (>60); Est Glom Filt Rate - Afr Amer 130 mL/min (>60); Estimated Creatinine Clearance 119.29 ml/min; Glucose 111 mg/dL (74-106); Potassium 3.7 mmol/L (3.5-5.1); Sodium Level 139 mmol/L (136-145)
[2018-11-16] MEDS: 0.9% Normal Saline 1,000 ML 1000 ML IV (03:55)
[2018-11-16 04:28] LABS: Lactic Acid 4.7 mmol/L (0.4-2.0)
[2018-11-16] MEDS: Morphine 4 MG/ML Syringe IV ×2 (04:32→05:24)
[2018-11-16 04:33] VITALS: BP 143/68; PULSE 83; RESP 16; O2SAT 98
[2018-11-16] MEDS: Heparin Injection (Vial) 5,000 UNIT/ML VIAL 4000 UNIT IV (05:16)
[2018-11-16] MEDS: HEPARIN/D5w 25,000 UNITS 25,000 UNITS/250 ML IV.SOLN. 9 UNITS IV (05:18)
[2018-11-16 05:25] VITALS: BP 143/91; PULSE 87; RESP 16; O2SAT 98
[2018-11-16] MEDS: 0.9% Normal Saline 1,000 ML 150 ML IV (05:25)
--- NOTE | 2018-11-16 05:28 | ED.RN ---
[facility] NO ALS CREW AVAILABLE, [facility] REFUSED, [facility] IS NOT AVAILABLE, [facility] IS NOT FLYING D/T WEATHER
--- NOTE | 2018-11-16 05:36 | ED.RN ---
[facility] FL[facility]. [facility]
[2018-11-16 06:10] VITALS: BP 143/91; PULSE 87; RESP 16; TEMP 36.4; O2SAT 98
[2018-11-16 07:57] LABS: Reflex Lactate? Y
== END 2018-11-16 06:10 | disposition short-term general hospital (02) ==
PROVIDERS: Emergency Provider Emergency Medicine
DX: I74.5 Embolism and thrombosis of iliac artery (principal); F17.210 Nicotine dependence, cigarettes, uncomplicated; F10.10 Alcohol abuse, uncomplicated; Y90.9 Presence of alcohol in blood, level not specified
CPT/HCPCS: 75635; 80048; 83605; 85025; 85610; 85730; 93005; 96361; 96365; 96375; 96376; 99285; J7030; Q9967; A4216

== ENCOUNTER 2019-10-12 11:41 | Inpatient (IN) | payer SELFPAY ==
[2019-10-12] VITALS (18 sets, daily range): BP systolic 92–152; BP diastolic 66–104; PULSE 88–114; RESP 17–25; TEMP 36.7–36.9; O2SAT 90–99; BMI 21.7; BMI 19.8; BMI 19.9
--- NOTE | 2019-10-12 12:15 | CT_ITS ---
STUDY: CT ABDOMEN AND PELVIS WITH CONTRAST REASON FOR EXAM: Male, 49 years old. Pain. Vomiting. RADIATION DOSAGE (If Supplied By Facility): CTDIvol = ( 10.20 ) mGy, DLP = ( 563.43 ) mGycm TECHNIQUE: Transaxial images were obtained from the dome of the diaphragm to the symphysis pubis without oral contrast. 100 ml of Isovue-300 contrast was administered. Sagittal and coronal images were reconstructed. Individualized dose optimization techniques were used for this CT. COMPARISON: 11/16/2018 FINDINGS: Evaluation is limited by patient motion. The visualized lung bases are clear. The visualized portions of the heart and pericardium are within normal limits. There are no calcified gallstones present. The liver is low in density, consistent with fatty infiltration. The spleen is normal in size. The pancreas is within normal limits. The adrenal glands are within normal limits. There are no renal or ureteral stones. There is no hydronephrosis. There are no focal renal lesions. Normal visualized stomach. There is no bowel obstruction or inflammation. The appendix is not visualized, but there are no findings to suggest acute appendicitis. The aorta is normal in caliber. There are atherosclerotic calcifications noted in the aorta and its branches. The urinary bladder appears thick walled. This may be due to underdistention, but clinical correlation is recommended to evaluate for cystitis. There is no abdominal or pelvic free air, free fluid, fluid collection or lymphadenopathy. There are no destructive osseous lesions. CT/Abdomen/Pelvis W IV Cont ONLY IMPRESSION: Thick-walled urinary bladder which may be due to under distention or cystitis. Clinical correlation is recommended. Normal kidneys. No hydronephrosis. No bowel obstruction or inflammation. Fatty liver. Electronically Signed: Brandt Gu, at 15:32 EDT Tel , Service support ,
--- NOTE | 2019-10-12 12:25 | NURSING ---
THIS RN ENTERED RM. PT SEIZING. ASSISTANCE FROM ADDITIONAL RN'S. PT ROLLED TO SIDE. SUCTIONED. SEUURE PADS , MONITOR APPLIED. DR AWARE. PT MEDICATED. WILL CONTINUE TO MONITOR.
--- NOTE | 2019-10-12 12:26 | CT_ITS ---
STUDY: CT BRAIN WITHOUT CONTRAST REASON FOR EXAM: Male, 49 years old. Pain. Vomiting. RADIATION DOSAGE (If Supplied By Facility): CTDIvol = ( 44.99 ) mGy, DLP = ( 1592.22 ) mGycm TECHNIQUE: Transaxial CT imaging of the brain was performed without administration of intravenous contrast material. Individualized dose optimization techniques were used for this CT. COMPARISON: None. FINDINGS: There is no acute bleed or infarct. There are normal white matter tracts. The ventricles are normal in configuration. There is no hydrocephalus. The visualized paranasal sinuses are clear. The mastoid air cells are well aerated. There is no skull fracture. CT/Brain/Head without Contrast IMPRESSION: No acute intracranial abnormality. Electronically Signed: Brandt Gu, at 15:40 EDT Tel , Service support ,
[2019-10-12] MEDS: 0.9% Normal Saline 1,000 ML 1000 ML IV (12:31)
[2019-10-12] MEDS: LORazepam 2 MG/ML Syringe IV (12:31)
[2019-10-12] MEDS: Ondansetron 4 MG/2 ML Vial IV (12:32)
[2019-10-12 12:45] LABS: Absolute Lymphocyte Count 0.47 X10^3/uL (0.83-4.51); Absolute Neutrophil Count 3.5 X10^3/uL (2.0-7.7); Basophil# 0.03 X10^3/uL; Basophil% 0.7 % (0-1); Eosinophil# 0.08 X10^3/uL; Eosinophils% 1.8 % (0-5); Hematocrit 33.5 % (40-54); Hemoglobin 12.3 g/dL (13.0-16.5); Lymphocyte # 0.47 X10^3/ul (4.0); Lymphocyte % 10.5 % (19-41); Mean Corp Hgb Conc 36.7 g/dL (32-36); Mean Corpuscular Hgb 33.5 pg (27.0-32.0); Mean Corpuscular Volume 91.3 fL (80-94); Mean Platelet Vol. 11.1 fl (6.2-12.0); Monocyte# 0.35 X10^3/uL; Monocyte% 7.8 % (0-10); NRBC Flagged by Analyzer 0 % (0-5); Neutrophil # 3.51 X10^3/uL (2.7-7.7); Neutrophil % 78.8 % (47-70); POSITIVE COUNT YES; POSITIVE DIFFERENTIAL YES; POSITIVE MORPHOLOGY YES; RBC Distribution Width CV 12.4 % (11.6-14.6); RBC Distribution Width SD 41.1 fl (35.1-43.9); Red Blood Count 3.67 M/mm3 (4.6-6.2); White Blood Count 4.5 K/mm3 (4.4-11.0)
--- NOTE | 2019-10-12 12:45 | ED.DCSUM_ITS ---
- ER Visit Summary Date of Service: 10/12/19 Chief Complaint: Abdominal pain History of Present Illness: The patient is a 49 M with no primary care physician. He is a poor informant. He reports that he has periumbilical abdominal pain that began 3 to 4 weeks ago. Is a continuous cramping pain is 10-10 severity. Is worsened by movement or food. Is relieved by remaining still pretty reports is been nauseated and vomited 3 times today. No blood in his emesis. He also has had 3-4 episodes of diarrhea today. He reports his stool has been black and green. No blood in his stools. He complains of dysuria, but no frequency. Patient denies any fever or chills. Does report he had a cough for the past 3 to 4 weeks is productive of brown sputum. He also reports has been short of breath over the past 4 weeks. Patient does have a history of alcohol abuse. However, he tells me that he has not had a drink for the past 6 months. Physical Examination: Vitals: 98.5, 150/73, 92, 17, 90% on room air which is not hypoxic. General: Well-nourished and well-developed. Unkempt. Head: Normocephalic atraumatic. Neck: Supple, no lymphadenopathy. No JVD. Nontender. Cardiovascular: Regular rate and rhythm. No murmurs. Respiratory: No respiratory distress. Clear to auscultation bilaterally. Abdominal: Soft, mild periumbilical tenderness to palpation, nondistended, normal bowel sounds. No guarding, rebound, or peritoneal signs. Back: Nontender. Extremities: Nontender, no edema. Skin: Normal color, no rash. Neurologic: Alert and oriented ?3. Cranial nerves II through XII are intact. Normal strength and sensation. Tremulous. Psych: Normal affect. Test Results: EKG is sinus tach at [address] changes. CBC shows an H&H of 12.3 and 33.5, platelets 27, segmented for 79, lymphocytes of 11. Chem-7 shows a sodium of 117, potassium 3.2, chloride of 81, glucose 164, BUN of 6. Alcohol is 0. Talk screen is negative. LFTs show an total bili of 2.6, alk phos 124, ALT of 263, AST of 346 lipase is normal. INR 0.9. PTT is 27.8. UA is negative. Clinical Impression(s) from Imaging Studies Abdomen/Pelvis CT 10/12/19 12:15 IMPRESSION: Thick-walled urinary bladder which may be due to under distention or cystitis. Clinical correlation is recommended. Normal kidneys. No hydronephrosis. No bowel obstruction or inflammation. Fatty liver. Electronically Signed: Brandtjessie Gu, at 15:32 EDT Tel , Service support , Brain CT 10/12/19 12:26 IMPRESSION: No acute intracranial abnormality. Electronically Signed: Brandt Gu, at 15:40 EDT Tel , Service support , Chest X-Ray 10/12/19 14:55 IMPRESSION: No acute thoracic pathology. Electronically Signed: Brandt Gu, at 15:10 EDT Tel , Service support , Emergency Department Course and Treatment: Shortly after having the IV placed the patient had an approximately 2-minute tonic-clonic seizure and was incontinent of urine. He was given 2 mg of Ativan IV and seizure precautions were undertaken. He was certainly postictal following this, but seemed even more confused than I would expect. He is speaking nonsensically to no one in the room. When his sodium returned he was given a 100 mL bolus of 3% normal saline. Approximately half an hour later when reexamined the patient is awake, alert, and appropriate. He is answering questions appropriately. Treatment Plan: The patient was discussed with Dr. Garcia as well as Dr. Graham. He will be admitted to the ICU for further evaluation and treatment. Disposition: Admitted in improved, but serious condition. Impression: 1. Hyponatremia. 2. Seizure. 3. Abdominal pain, uncertain cause. 4. Thrombocytopenia. 5. Abnormal LFTs. 6. Critical care time 33 minutes. This note was generated with [employer] software. It may contain incorrect words, spelling, and punctuation that were not noted in review of the chart prior to signing ED Disposition - Plan for ED Patient: Referrals: Care Physician,No Primary [Primary Care Provider] -
[2019-10-12 12:48] LABS: Differential Indicated SCAN CRITERIA MET; Platelet Count 27 K/mm3 (150-450)
[2019-10-12 12:50] LABS: International Normalized Ratio 0.9; Prothrombin Time (Protime)PT. 12.2 SECONDS (11.7-14.9)
[2019-10-12 12:51] LABS: Partial Thromboplast Time 27.8 Seconds (24.1-36.2)
[2019-10-12 13:07] LABS: AST(SGOT) 346 U/L (15-37); Alanine Aminotransfer ALT/SGPT 263 U/L (16-61); Albumin, Serum 3.7 g/dL (3.2-5.0); Alkaline Phosphatase 124 U/L (45-117); Anion Gap 12 (5-15); BUN 6 mg/dL (7-18); BUN/Creat Ratio 8.5 RATIO (10-20); Calcium,Total 8.7 mg/dL (8.5-10.1); Chloride 81 mmol/L (98-107); EST Glomerular Filtration Rate 125 mL/min (>60); Est Glom Filt Rate - Afr Amer 152 mL/min (>60); Estimated Creatinine Clearance 128.16 ml/min; Globulin 3.6 g/dL (2.2-4.2); Glucose 164 mg/dL (74-106); Lipase 296 U/L (73-393); Potassium 3.2 mmol/L (3.5-5.1); Protein, Total 7.3 g/dL (6.4-8.2); Sodium Level 117 mmol/L (136-145)
[2019-10-12 13:30] LABS: Alcohol, Blood (Medical)-Serum < 3.0 mg/dL
[2019-10-12 13:32] LABS: Platelet Estimate MKD DEC (ADEQ); Red Cell Morphology NORM C+C NORMAL (NORM C&C)
[2019-10-12] MEDS: Sodium Chloride 3% 500 ML IV.SOLN. 100 ML IV (13:54)
[2019-10-12 14:52] LABS: Mucous, Urine 0 SEEN /hpf (<or=2+); White Blood Cells 0 SEEN /hpf (0-5)
[2019-10-12 14:55] LABS: Color, Urine Amber (Yellow); Glucose, Dipstick 100 mg/dl (Normal); Ketone-Dipstick Negative (Negative); Leukocyte Esterase-Dipstick Negative /ul (Negative); Nitrite-Dipstick Negative (Negative); Occult Blood-Urine 25 /ul (Negative); Protein-Dipstick 15 mg/dl (Negative); Urine Bilirubin Dipstick Negative (Negative); Urine Clarity Sl. Cloudy (Clear); Urine Urobilinogen 1 mg/dl (Normal); Urine pH 6.5 (5.0 - 8.0)
--- NOTE | 2019-10-12 14:55 | RAD_ITS ---
STUDY: X-RAY CHEST REASON FOR EXAM: Male, 49 years old. Nausea and vomiting TECHNIQUE: Frontal view of the chest COMPARISON: None. FINDINGS: The lungs are clear. There are no pleural effusions. There is no pneumothorax. The heart is normal in size. The visualized osseous structures are within normal limits. RAD/Chest 1 View (Portable) IMPRESSION: No acute thoracic pathology. Electronically Signed: Brandt Gu, at 15:10 EDT Tel , Service support ,
[2019-10-12 15:04] LABS: Bacteria RARE /hpf (None Seen); Red Blood Cells-Urine 0-5 SEEN /hpf (0-5); Squamous Epithelial Cells - UA 0-5 SEEN /hpf (0-5)
[2019-10-12 15:17] LABS: Amphetamine Urine VISTA NEGATIVE (<1000 ng/mL); Barbiturate Urine VISTA NEGATIVE (< 200 ng/mL); Benzodiazepine Urine VISTA NEGATIVE (< 200 ng/mL); Cocaine Urine VISTA NEGATIVE (< 300 ng/mL); Ecstacy Urine VISTA NEGATIVE (< 500 ng/mL); Methadone Urine VISTA NEGATIVE (< 300 ng/mL); PCP Urine VISTA NEGATIVE (< 25 ng/mL); THC Urine VISTA NEGATIVE (< 50 ng/mL); Vista UDS pH Range 6
--- NOTE | 2019-10-12 16:13 | EKG12_ITS ---
Test Reason : ADMISSION Blood Pressure : / mmHG Vent. Rate : 106 BPM Atrial Rate : 106 BPM P-R Int : 156 ms QRS Dur : 090 ms QT Int : 372 ms P-R-T Axes : 061 074 063 degrees QTc Int : 494 ms Sinus tachycardia Septal infarct , age undetermined Abnormal ECG Confirmed by RUY RUBIO, DEREJE ([id number]), fan mail editor MIA MERIDA ([id number]) on 10/15/2019 1:54:01 PM Referred By: JUDY Confirmed By:DEREJE REDMOND MD
--- NOTE | 2019-10-12 16:52 | HP.PCM_ITS ---
<Burak Lopez - Last Filed: 10/12/19 16:52> Problem List (1) Hyponatremia Status: Acute (2) Seizure Status: Acute (3) Transaminitis Status: Acute (4) Thrombocytopenia Status: Chronic (5) Hypokalemia Status: Chronic (6) Alcohol abuse Status: Chronic History of Present Illness Date of Admission: 10/12/19 Chief Complaint: abdominal pain, seizure The patient is a 49 year old M with pmhx of alcoholism reportedly sober x 6 months, hx hyponatremia, COPD with ongoing nicotine abuse, PAD, who presents to the ER with c/o abdominal pain. Initially the patients mental status was intact although he is a poor historian. The patient was being worked up in the ED for abdominal pain, however he had a seizure. He was given ativan after which he was post ictal. He denies any prior seizure. He later was sent to cat scan and bec luciano very agitated. He was found to have low sodium at 117 and was given 100 cc hypertonic saline over ten mins and his mental status improved. In the past he was admitted for hyponatremia and this was related to drinking large quantities of water. He has also been having nausea and vomiting, and a chronic cough x 1 month. He still has diffuse abdominal discomfort. [] Past Medical History Past Medical History (Chronic Problems): Chronic Problems Thrombocytopenia (Chronic) Alcohol abuse (Chronic) Hypokalemia (Chronic) Allergies No Known Allergies Allergy (Verified 10/12/19 11:42) Home Medications: Ambulatory Orders Medication Instructions Recorded NK 11/16/18 Surgical History: - - left hip surgery and fractured pelvis from [facility] Psychiatric History: No pertinent psych hx Lives: With Family - lives with mother Smoking Status: Current every day smoker Tobacco Use: Cigarettes - 1 pack per week Alcohol: Sober Drugs: None - *Family History Maternal History Items: - - anxiety Paternal History Items: Heart Disease, - - father truck driver salesperson and had 2 heart attacks Review of Systems Constitutional: Denies: Chills, Fever, Weight Change HEENT: Denies: Head Aches, Sinus Congestion, Sinus Drainage Cardiovascular: Denies: Chest Pain, Palpitations Respiratory: Reports: Cough. Denies: Shortness of Breath, Shortness of breath at rest, Sputum production Gastrointestinal: Reports: Abdominal Pain, Nausea, Vomiting Genitourinary: Denies: Dysuria Musculoskeletal: Denies: Joint Pain, Joint Tenderness Skin: Denies: Rash, Wounds Neurological: Reports: Seizures. Denies: Focal weakness, Numbness, Tingling Psychiatric: Denies: Anxiety, Depression, Homicidal Ideations, Suicidal Ideations Hematologic/ Lymphatic: Denies: Easy Bruising, Easy Bleeding VTE Information - Inpt Only VTE Present on Admission: No VTE Mechan Device Prophylaxis: None VTE Pharm Prophylaxis ordered?: Yes Patient Problems: Active and Suspected Problems Seizure (Acute) Transaminitis (Acute) - Physical Exam Vitals/I&O's: Vital Signs Temp Pulse Resp BP Pulse Ox 98.1 F 104 H 18 95/74 99 10/12/19 16:03 10/12/19 16:03 10/12/19 16:03 10/12/19 16:03 10/12/19 16:03 Oxygen Flow Rate (L/min) 6 Oxygen Delivery Method Room Air Weight: 160 lb Body Mass Index (BMI) 21.7 Intake and Output for Last 24 Hours 10/10/19 10/11/19 10/12/19 23:59 23:59 23:59 Intake Total 1000 / 1000 Balance 1000 / 1000 General: Alert, Oriented x3, Cooperative, - - disheveled HEENT: Atraumatic, PERRLA, EOMI, Normocephalic Neck: Supple, No JVD, Negative Carotid Bruits Lungs: Clear to auscultation, Normal air movement Cardiovascular: Regular rate, No murmurs Abdomen: Bowel Sounds Present, Soft, Tender - diffusely, no guarding Extremities: No edema, Capillary Refill Less than 3 Seconds Skin: No rashes, No breakdown Musculoskeletal: No Tenderness to Palpation of Joints or Extremities Neurological: Cranial nerves II-XII grossly intact Psych/Mental Status: Normal Affect, Appropriate, Alert and oriented to time, place, person, mood and affect Laboratory Results 10/12/19 12:35: WBC 4.5, RBC 3.67 L, Hgb 12.3 L, Hct 33.5 L, MCV 91.3, MCH 33.5 H, MCHC 36.7 H, RDW Std Deviation 41.1, RDW Coeff of José 12.4, Plt Count 27 L*, MPV 11.1, Immature Gran % (Auto) 0.400, Neut % (Auto) 78.8 H, Lymph % (Auto) 10.5 L, Wood % (Auto) 7.8, Eos % (Auto) 1.8, Baso % (Auto) 0.7, Absolute Neuts (auto) 3.5, Absolute Lymphs (auto) 0.47 L, Nucleated RBC % 0, Differential Comment COMMENT, Diff Path Review May foll, Platelet Estimate MKD DEC, RBC Morphology NORM C+C 10/12/19 12:35: Sodium 117 L*, Potassium 3.2 L, Chloride 81 L, Carbon Dioxide 24.0, Anion Gap 12, BUN 6 L, Creatinine 0.70, Estim Creat Clear Calc 128.16, Est GFR (MDRD) Af Amer 152, Est GFR (MDRD) Non-Af 125, BUN/Creatinine Ratio 8.5 L, Glucose 164 H, Calcium 8.7, Total Bilirubin 2.60 H, AST 346 H, ALT 263 H, Alkaline Phosphatase 124 H, Total Protein 7.3, Albumin 3.7, Globulin 3.6, Albumin/Globulin Ratio 1.0, Lipase 296 10/12/19 12:35: Ethyl Alcohol < 3.0 10/12/19 12:35: PT 12.2, INR 0.9, APTT 27.8 10/12/19 14:45: Urine Color Annie, Urine Clarity Sl. Cloudy, Urine pH 6.5, Ur Specific [place] 1.010, Urine Protein 15 H, Urine Glucose (UA) 100 H, Urine Ketones Negative, Urine Occult Blood 25 H, Urine Nitrite Negative, Urine Bilirubin Negative, Urine Urobilinogen 1 H, Ur Leukocyte Esterase Negative, Urine RBC 0-5 SEEN, Urine WBC 0 SEEN, Ur Squamous Epith Cells 0-5 SEEN, Urine Bacteria RARE, Urine Mucus 0 SEEN 10/12/19 14:45: Urine Opiates Screen NEGATIVE, Urine Methadone Screen NEGATIVE, Ur Barbiturates Screen NEGATIVE, Ur Phencyclidine Scrn NEGATIVE, Ur Amphetamines Screen NEGATIVE, U Methamphetamin-MDMA NEGATIVE, U Benzodiazepines Scrn NEGATIVE, Urine Cocaine Screen NEGATIVE, U Cannabinoids Screen NEGATIVE, Ur Drug Screen Comment Assessment/Plan All Active Problems Seizure (Acute) Transaminitis (Acute) COPD with acute exacerbation (Acute) Hyponatremia (Acute) 1. Seizure - likely due to hyponatremia and alcohol withdrawal. witnessed in ER. His mother confirms that he is still drinking. Etoh level is neg. He insists he does not drink anymore. Seizure resolved after ativan. Obtain MRI brain and neuro consult. Continue seizure precautions, prn ativan. CIWA protocol. No hx seizure. Drug screen negative. CT brain neg. 2. Hyponatremia - previously had this attributed to drinking excessive water. Probably beer potomania. Nephrology consulted. mentation improved after 100 cc 3% saline. Repeat BMP pending. urine studies pending. replace electrolytes, check mag/phos. check tsh. 3. Transaminitis - again, he still drinks per his mother whom he lives with. Check hepatitis panel. Low platelets. inr 0.9. Check Abd US. 4. Abd pain - unclear etiology - ? hepatitis. CT shows thick walled urinary bladder - check post void residual. Fatty liver. UA negative 5. Thrombocytopenia - suspect cirrhosis. avoid heparin products. 6. Alcoholism - as above, ciwa protocol, ativan prn, thiamine/folate supplementation 7. PAD - prior left LE surgery. Not on home meds 8. COPD - no exacerbation - prn albuterol. DVT ppx SCDs. This patient was seen by Burak Lopez PA-C under the supervision of Dr. Steven. <Petra Steven - Last Filed: 10/12/19 18:06> History of Present Illness The patient is a 49 year old M [] Past Medical History Allergies No Known Allergies Allergy (Verified 10/12/19 11:42) - Physical Exam Vitals/I&O's: Vital Signs Temp Pulse Resp BP Pulse Ox 98.3 F 97 18 103/82 H 98 10/12/19 16:57 10/12/19 16:57 10/12/19 16:57 10/12/19 16:57 10/12/19 16:57 Oxygen Flow Rate (L/min) 6 Oxygen Delivery Method Room Air Weight: 66.542 kg Body Mass Index (BMI) 19.8 Intake and Output for Last 24 Hours 10/10/19 10/11/19 10/12/19 23:59 23:59 23:59 Intake Total 1000 / 1000 Balance 1000 / 1000 Laboratory Results 10/12/19 12:35: WBC 4.5, RBC 3.67 L, Hgb 12.3 L, Hct 33.5 L, MCV 91.3, MCH 33.5 H, MCHC 36.7 H, RDW Std Deviation 41.1, RDW Coeff of José 12.4, Plt Count 27 L*, MPV 11.1, Immature Gran % (Auto) 0.400, Neut % (Auto) 78.8 H, Lymph % (Auto) 10.5 L, Wood % (Auto) 7.8, Eos % (Auto) 1.8, Baso % (Auto) 0.7, Absolute Neuts (auto) 3.5, Absolute Lymphs (auto) 0.47 L, Nucleated RBC % 0, Differential Comment COMMENT, Diff Path Review May foll, Platelet Estimate MKD DEC, RBC Morphology NORM C+C 10/12/19 12:35: Sodium 117 L*, Potassium 3.2 L, Chloride 81 L, Carbon Dioxide 24.0, Anion Gap 12, BUN 6 L, Creatinine 0.70, Estim Creat Clear Calc 128.16, Est GFR (MDRD) Af Amer 152, Est GFR (MDRD) Non-Af 125, BUN/Creatinine Ratio 8.5 L, Glucose 164 H, Calcium 8.7, Total Bilirubin 2.60 H, AST 346 H, ALT 263 H, Alkaline Phosphatase 124 H, Total Protein 7.3, Albumin 3.7, Globulin 3.6, Albumin/Globulin Ratio 1.0, Lipase 296 10/12/19 12:35: Ethyl Alcohol < 3.0 10/12/19 12:35: PT 12.2, INR 0.9, APTT 27.8 10/12/19 14:45: Urine Color Annie, Urine Clarity Sl. Cloudy, Urine pH 6.5, Ur Specific [place] 1.010, Urine Protein 15 H, Urine Glucose (UA) 100 H, Urine Ketones Negative, Urine Occult Blood 25 H, Urine Nitrite Negative, Urine Bilirubin Negative, Urine Urobilinogen 1 H, Ur Leukocyte Esterase Negative, Urine RBC 0-5 SEEN, Urine WBC 0 SEEN, Ur Squamous Epith Cells 0-5 SEEN, Urine Bacteria RARE, Urine Mucus 0 SEEN 10/12/19 14:45: Urine Opiates Screen NEGATIVE, Urine Methadone Screen NEGATIVE, Ur Barbiturates Screen NEGATIVE, Ur Phencyclidine Scrn NEGATIVE, Ur Amphetamines Screen NEGATIVE, U Methamphetamin-MDMA NEGATIVE, U Benzodiazepines Scrn NEGATIVE, Urine Cocaine Screen NEGATIVE, U Cannabinoids Screen NEGATIVE, Ur Drug Screen Comment Current Medications Acetaminophen (Tylenol) 650 mg PO Q6H PRN PRN PRN Reason: Pain Score 1-10/Temp > 100.7 F Dicyclomine HCl (Bentyl) 20 mg PO Q6H PRN PRN PRN Reason: abdominal discomfort Folic Acid (Folic Acid) 1 mg PO DAILY@0800 NOHEMI Gabapentin (Neurontin) 300 mg PO Q8H PRN PRN PRN Reason: moderate to severe anxiety Hydroxyzine Pamoate (Vistaril Pamoate Capsule) 50 mg PO Q4H PRN PRN PRN Reason: mild anxiety Potassium Chloride () 10 meq in 100 mls @ 100 mls/hr IV BOLUS Q1H NOHEMI Stop: 10/12/19 21:13 Loperamide HCl (Imodium) 2 mg PO Q4H PRN PRN PRN Reason: LOOSE STOOLS Lorazepam (Ativan) 2 mg IV PRN PRN PRN Reason: SEIZURES Lorazepam (Ativan) 0 mg PO UD NOHEMI; Taper Stop: 10/17/19 01:14 Magnesium Hydroxide (Milk Of Magnesia) 30 ml PO DAILY PRN PRN PRN Reason: Constipation Ondansetron HCl (Zofran) 4 mg IV Q8H PRN PRN PRN Reason: NAUSEA/VOMITING Ondansetron HCl (Zofran) 8 mg PO Q8H PRN PRN PRN Reason: NAUSEA Sodium Chloride () 10 - 40 ml IV UD PRN PRN Reason: SALINE FLUSH Thiamine HCl (Vitamin B1) 100 mg PO DAILYCM NOHEMI Trazodone HCl (Desyrel) 100 mg PO QHS PRN PRN Reason: INSOMNIA Assessment/Plan This patient was seen in conjunction with LUIS Rick. I have independently interviewed and examined the patient and reviewed pertinent historical, laboratory, and other data. Please refer to LUIS Rick note for his patient's presentation, findings, and recommendations. I have reviewed and his note and concur with his documentation 49-year-old male with past medical history of chronic alcohol use disorder, who per history says he has been sober for 6 months but his mom provides a collab orative history of daily alcohol use. Patient is a poor historian. Per the patient's mother (whom he lives with), he drinks several beers a day. Patient comes in with severe abdominal pain ongoing for about a month but worse in the last few days. This is associated with nausea and vomiting and diarrhea. This abdominal discomfort is worse with food. Ported to the ED physician that he had vomited 3 times today. Nonbloody. Whilst patient was being evaluated in the ED, he had a 2-minute tonic-clonic seizure and was incontinent of urine. This happened shortly after labs were taking and an IV was placed. This was followed by post ictal confusion. His labs came back shortly after and he received 100 mils bolus of 3% normal saline. Patient was later on found to be appropriate and able to answer all questions. Physical Exam: Gen: Looks unkempt, not pale, not jaundiced, severely dehydrated CVS:HS I +II, regular, no murmurs RESP: CTA GI: BS present and normal, soft, full, epigastric tenderness, no palpable organs EXT:No edema ASSESSMENT: 1. Seizure secondary to severe hyponatremia 2. Severe symptomatic hyponatremia secondary to alcohol use 3. Elevated transaminitis 4. Fatty liver/early cirrhosis 5. Gastritis, alcohol-related 6. Severe thrombocytopenia, likely alcohol related 7. Hypokalemia 8.PAD s/p thrombectomy Plan: Admit to ICU Nephrology, electrical and radio aircraft mechanic consult Repeat BMP stat, BMP Q2h Hepatitis panel Ativan Alcohol withdrawal protocol Replace potassium Continue seizure precautions Inpatient E&M: 01359 Init Hosp L3
[2019-10-12 18:07] LABS: Urine Sodium 55 mmol/L (Not Establ.)
[2019-10-12 18:08] LABS: Anion Gap 9 (5-15); BUN 3 mg/dL (7-18); Calcium,Total 8.2 mg/dL (8.5-10.1); Chloride 86 mmol/L (98-107); EST Glomerular Filtration Rate 151 mL/min (>60); Est Glom Filt Rate - Afr Amer 182 mL/min (>60); Estimated Creatinine Clearance 137.09 ml/min; Glucose 125 mg/dL (74-106); Magnesium 1.6 mg/dL (1.6-2.6); Phosphorus 2.1 mg/dL (2.5-4.9); Potassium 3.2 mmol/L (3.5-5.1); Sodium Level 124 mmol/L (136-145)
[2019-10-12] MEDS: Potassium Chloride 10mEq/100mL 10 MEQ/100 ML IV.SOLN. 100 MEQ IV BOLUS ×4 (18:08→21:45)
[2019-10-12] MEDS: LORazepam 1 MG Tablet PO ×2 (18:08→21:45)
[2019-10-12 18:25] LABS: Thyroid Stim Hormone (TSH) 1.11 uIU/mL (0.358-3.74)
[2019-10-12 18:43] LABS: Osmolality, Serum 253 mOsm/KG (275-295)
[2019-10-12 18:43] LABS: Osmolality, Urine 435 mOsm/KG
[2019-10-12] MEDS: 0.9% Normal Saline 1,000 ML 100 ML IV (19:04)
[2019-10-12 19:16] LABS: Anion Gap 10 (5-15); BUN 3 mg/dL (7-18); BUN/Creat Ratio 4.5 RATIO (10-20); Calcium,Total 8.7 mg/dL (8.5-10.1); Chloride 86 mmol/L (98-107); Creatinine, Serum 0.67 mg/dL (0.70-1.30); EST Glomerular Filtration Rate 133 mL/min (>60); Est Glom Filt Rate - Afr Amer 161 mL/min (>60); Estimated Creatinine Clearance 122.77 ml/min; Glucose 130 mg/dL (74-106); Potassium 3.2 mmol/L (3.5-5.1); Sodium Level 125 mmol/L (136-145)
[2019-10-12] MEDS: Na Biphos/Potassium Phosphate PACKET 1 PACKET PO (21:45)
[2019-10-12 22:08] LABS: Anion Gap 7 (5-15); BUN 4 mg/dL (7-18); BUN/Creat Ratio 5.6 RATIO (10-20); Calcium,Total 8.8 mg/dL (8.5-10.1); Chloride 96 mmol/L (98-107); Creatinine, Serum 0.72 mg/dL (0.70-1.30); EST Glomerular Filtration Rate 122 mL/min (>60); Est Glom Filt Rate - Afr Amer 148 mL/min (>60); Estimated Creatinine Clearance 114.24 ml/min; Glucose 118 mg/dL (74-106); Potassium 3.7 mmol/L (3.5-5.1); Sodium Level 131 mmol/L (136-145)
[2019-10-13] VITALS (20 sets, daily range): BP systolic 91–123; BP diastolic 63–93; PULSE 76–109; RESP 14–28; TEMP 36.4–37.2; O2SAT 91–100
[2019-10-13 01:04] LABS: Anion Gap 6 (5-15); BUN 4 mg/dL (7-18); BUN/Creat Ratio 5.9 RATIO (10-20); Calcium,Total 8.7 mg/dL (8.5-10.1); Chloride 98 mmol/L (98-107); Creatinine, Serum 0.68 mg/dL (0.70-1.30); EST Glomerular Filtration Rate 130 mL/min (>60); Est Glom Filt Rate - Afr Amer 157 mL/min (>60); Estimated Creatinine Clearance 120.96 ml/min; Glucose 102 mg/dL (74-106); Potassium 3.8 mmol/L (3.5-5.1); Sodium Level 131 mmol/L (136-145)
[2019-10-13] MEDS: LORazepam 1 MG Tablet PO ×6 (02:45→21:55)
[2019-10-13] MEDS: 0.9% Normal Saline 1,000 ML 100 ML IV (06:50)
[2019-10-13 07:24] LABS: Absolute Lymphocyte Count 0.68 X10^3/uL (0.83-4.51); Absolute Neutrophil Count 4.2 X10^3/uL (2.0-7.7); Basophil# 0.02 X10^3/uL; Basophil% 0.4 % (0-1); Eosinophil# 0.03 X10^3/uL; Eosinophils% 0.6 % (0-5); Hematocrit 36.9 % (40-54); Hemoglobin 13.3 g/dL (13.0-16.5); Lymphocyte # 0.68 X10^3/ul (4.0); Lymphocyte % 13.1 % (19-41); Mean Corpuscular Hgb 33.7 pg (27.0-32.0); Mean Corpuscular Volume 93.4 fL (80-94); Mean Platelet Vol. 12.9 fl (6.2-12.0); Monocyte# 0.27 X10^3/uL; Monocyte% 5.2 % (0-10); NRBC Flagged by Analyzer 0 % (0-5); Neutrophil # 4.17 X10^3/uL (2.7-7.7); Neutrophil % 80.3 % (47-70); POSITIVE COUNT YES; RBC Distribution Width CV 13.1 % (11.6-14.6); RBC Distribution Width SD 44.9 fl (35.1-43.9); Red Blood Count 3.95 M/mm3 (4.6-6.2); White Blood Count 5.2 K/mm3 (4.4-11.0)
[2019-10-13 07:26] LABS: Differential Indicated SCAN CRITERIA MET; Platelet Count 23 K/mm3 (150-450)
[2019-10-13 07:35] LABS: Phosphorus 2.4 mg/dL (2.5-4.9)
[2019-10-13 07:36] LABS: AST(SGOT) 407 U/L (15-37); Alanine Aminotransfer ALT/SGPT 279 U/L (16-61); Albumin, Serum 3.3 g/dL (3.2-5.0); Alkaline Phosphatase 117 U/L (45-117); Anion Gap 8 (5-15); BUN 3 mg/dL (7-18); BUN/Creat Ratio 4.9 RATIO (10-20); Calcium,Total 8.5 mg/dL (8.5-10.1); Chloride 101 mmol/L (98-107); Creatinine, Serum 0.61 mg/dL (0.70-1.30); EST Glomerular Filtration Rate 148 mL/min (>60); Est Glom Filt Rate - Afr Amer 179 mL/min (>60); Estimated Creatinine Clearance 132.12 ml/min; Globulin 3.4 g/dL (2.2-4.2); Glucose 97 mg/dL (74-106); Magnesium 2.2 mg/dL (1.6-2.6); Potassium 3.2 mmol/L (3.5-5.1); Protein, Total 6.7 g/dL (6.4-8.2); Sodium Level 136 mmol/L (136-145)
[2019-10-13 07:46] LABS: Differential Comment SCANNED; Platelet Estimate MKD DEC (ADEQ)
--- NOTE | 2019-10-13 08:52 | PN_ITS ---
Patient Problems: Active and Suspected Problems Seizure (Acute) Transaminitis (Acute) Subjective: Resting comfortably, doing okay. No issues overnight Vitals/I&O's: Vital Signs Temp Pulse Resp BP Pulse Ox 98.6 F 80 14 100/81 H 97 10/13/19 04:00 10/13/19 07:29 10/13/19 06:58 10/13/19 06:58 10/13/19 06:58 Oxygen Flow Rate (L/min) 6 Oxygen Delivery Method Room Air Weight: 143 lb 11.862 oz Body Mass Index (BMI) 19.8 Intake and Output for Last 24 Hours 10/11/19 10/12/19 10/13/19 23:59 23:59 23:59 Intake Total 2265.67 / 2265.67 1240 / 1240 Output Total 500 / 500 600 / 600 Balance 1765.67 / 1765.67 640 / 640 General: Alert, Oriented x3, Cooperative, No apparent distress HEENT: Atraumatic, PERRLA, EOMI, Normocephalic Oral: Dry Mucosa Neck: Supple, No JVD Lungs: Clear to auscultation, Normal air movement, No rhonchi, No wheeze, No rales, Diminished Cardiovascular: Regular rate, Regular Rhythm, Normal S1, Normal S2, No murmurs Abdomen: Soft, Non Tender, Non-Distended, No Hepato-splenomegaly Extremities: No edema, Capillary Refill Less than 3 Seconds Skin: No rashes, No breakdown Neurological: Neuro grossly intact, Sensory exam intact to light touch and pain Psych/Mental Status: Normal Affect, Appropriate Laboratory Results 10/12/19 12:35: WBC 4.5, RBC 3.67 L, Hgb 12.3 L, Hct 33.5 L, MCV 91.3, MCH 33.5 H, MCHC 36.7 H, RDW Std Deviation 41.1, RDW Coeff of José 12.4, Plt Count 27 L*, MPV 11.1, Immature Gran % (Auto) 0.400, Neut % (Auto) 78.8 H, Lymph % (Auto) 10.5 L, Whitley % (Auto) 7.8, Eos % (Auto) 1.8, Baso % (Auto) 0.7, Absolute Neuts (auto) 3.5, Absolute Lymphs (auto) 0.47 L, Nucleated RBC % 0, Differential Comment COMMENT, Diff Path Review May foll, Platelet Estimate MKD DEC, RBC Morphology NORM C+C 10/12/19 12:35: Sodium 117 L*, Potassium 3.2 L, Chloride 81 L, Carbon Dioxide 24.0, Anion Gap 12, BUN 6 L, Creatinine 0.70, Estim Creat Clear Calc 128.16, Est GFR (MDRD) Af Amer 152, Est GFR (MDRD) Non-Af 125, BUN/Creatinine Ratio 8.5 L, Glucose 164 H, Calcium 8.7, Total Bilirubin 2.60 H, AST 346 H, ALT 263 H, Alkaline Phosphatase 124 H, Total Protein 7.3, Albumin 3.7, Globulin 3.6, Albumin/Globulin Ratio 1.0, Lipase 296 10/12/19 12:35: Ethyl Alcohol < 3.0 10/12/19 12:35: PT 12.2, INR 0.9, APTT 27.8 10/12/19 14:45: Urine Color Annie, Urine Clarity Sl. Cloudy, Urine pH 6.5, Ur Specific [place] 1.010, Urine Protein 15 H, Urine Glucose (UA) 100 H, Urine Ketones Negative, Urine Occult Blood 25 H, Urine Nitrite Negative, Urine Bilirubin Negative, Urine Urobilinogen 1 H, Ur Leukocyte Esterase Negative, Urine RBC 0-5 SEEN, Urine WBC 0 SEEN, Ur Squamous Epith Cells 0-5 SEEN, Urine Bacteria RARE, Urine Mucus 0 SEEN 10/12/19 14:45: Urine Opiates Screen NEGATIVE, Urine Methadone Screen NEGATIVE, Ur Barbiturates Screen NEGATIVE, Ur Phencyclidine Scrn NEGATIVE, Ur Amphetamines Screen NEGATIVE, U Methamphetamin-MDMA NEGATIVE, U Benzodiazepines Scrn NEGATIVE, Urine Cocaine Screen NEGATIVE, U Cannabinoids Screen NEGATIVE, Ur Drug Screen Comment 10/12/19 14:45: Urine Osmolality 435 10/12/19 14:45: Urine Creatinine 76.90 10/12/19 14:45: Ur Random Sodium 55 10/12/19 17:25: Sodium 124 L, Potassium 3.2 L, Chloride 86 L, Carbon Dioxide 29.0, Anion Gap 9, BUN 3 L, Creatinine 0.60 L, Estim Creat Clear Calc 137.09, Est GFR (MDRD) Af Amer 182, Est GFR (MDRD) Non-Af 151, BUN/Creatinine Ratio 5.0 L, Glucose 125 H, Calcium 8.2 L, Phosphorus 2.1 L, Magnesium 1.6 10/12/19 17:25: Sodium Pending, Potassium Pending, Chloride Pending, Carbon Dioxide Pending, Anion Gap Pending, BUN Pending, Creatinine Pending, Est GFR (MDRD) Af Amer Pending, Est GFR (MDRD) Non-Af Pending, BUN/Creatinine Ratio Pending, Glucose Pending, Calcium Pending, TSH 1.11 10/12/19 17:25: Serum Osmolality 253 L 10/12/19 18:55: Sodium 125 L, Potassium 3.2 L, Chloride 86 L, Carbon Dioxide 29.0, Anion Gap 10, BUN 3 L, Creatinine 0.67 L, Estim Creat Clear Calc 122.77, Est GFR (MDRD) Af Amer 161, Est GFR (MDRD) Non-Af 133, BUN/Creatinine Ratio 4.5 L, Glucose 130 H, Calcium 8.7 10/12/19 18:55: Hepatitis A IgM Ab Pending, Hep Bs Antigen Pending, Hep B Core IgM Ab Pending, Hepatitis C Ab (EIA) Pending 10/12/19 21:35: Sodium 131 L, Potassium 3.7, Chloride 96 L, Carbon Dioxide 28.0, Anion Gap 7, BUN 4 L, Creatinine 0.72, Estim Creat Clear Calc 114.24, Est GFR (MDRD) Af Amer 148, Est GFR (MDRD) Non-Af 122, BUN/Creatinine Ratio 5.6 L, Glucose 118 H, Calcium 8.8 10/12/19 23:30: Sodium Cancelled, Potassium Cancelled, Chloride Cancelled, Carbon Dioxide Cancelled, Anion Gap Cancelled, BUN Cancelled, Creatinine Cancelled, Estim Creat Clear Calc Cancelled, Est GFR (MDRD) Af Amer Cancelled, Est GFR (MDRD) Non-Af Cancelled, BUN/Creatinine Ratio Cancelled, Glucose Cancelled, Calcium Cancelled 10/13/19 00:37: Sodium 131 L, Potassium 3.8, Chloride 98, Carbon Dioxide 27.0, Anion Gap 6, BUN 4 L, Creatinine 0.68 L, Estim Creat Clear Calc 120.96, Est GFR (MDRD) Af Amer 157, Est GFR (MDRD) Non-Af 130, BUN/Creatinine Ratio 5.9 L, Glucose 102, Calcium 8.7 10/13/19 06:15: WBC 5.2, RBC 3.95 L, Hgb 13.3, Hct 36.9 L, MCV 93.4, MCH 33.7 H, MCHC 36.0, RDW Std Deviation 44.9 H, RDW Coeff of José 13.1, Plt Count 23 L*, MPV 12.9 H, Immature Gran % (Auto) 0.400, Neut % (Auto) 80.3 H, Lymph % (Auto) 13.1 L, Whitley % (Auto) 5.2, Eos % (Auto) 0.6, Baso % (Auto) 0.4, Absolute Neuts (auto) 4.2, Absolute Lymphs (auto) 0.68 L, Nucleated RBC % 0, Differential Comment SCANNED, Diff Path Review November, Platelet Estimate MKD 10/13/19 06:15: Sodium 136, Potassium 3.2 L, Chloride 101, Carbon Dioxide 27.0, Anion Gap 8, BUN 3 L, Creatinine 0.61 L, Estim Creat Clear Calc 132.12, Est GFR (MDRD) Af Amer 179, Est GFR (MDRD) Non-Af 148, BUN/Creatinine Ratio 4.9 L, Glucose 97, Calcium 8.5, Magnesium 2.2, Total Bilirubin 2.00 H, AST 407 H, ALT 279 H, Alkaline Phosphatase 117, Total Protein 6.7, Albumin 3.3, Globulin 3.4, Albumin/Globulin Ratio 1.0 10/13/19 06:15: Phosphorus 2.4 L Current Medications Acetaminophen (Tylenol) 650 mg PO Q6H PRN PRN PRN Reason: Pain Score 1-10/Temp > 100.7 F Dicyclomine HCl (Bentyl) 20 mg PO Q6H PRN PRN PRN Reason: abdominal discomfort Folic Acid (Folic Acid) 1 mg PO DAILY@0800 NOHEMI Gabapentin (Neurontin) 300 mg PO Q8H PRN PRN PRN Reason: moderate to severe anxiety Hydroxyzine Pamoate (Vistaril Pamoate Capsule) 50 mg PO Q4H PRN PRN PRN Reason: mild anxiety Sodium Chloride () 1,000 mls @ 100 mls/hr IV .Q10H NOHEMI Stop: 10/13/19 16:14 Last Admin: 10/13/19 06:50 Dose: 100 mls/hr Documented by: Loperamide HCl (Imodium) 2 mg PO Q4H PRN PRN PRN Reason: LOOSE STOOLS Lorazepam (Ativan) 2 mg IV PRN PRN PRN Reason: SEIZURES Lorazepam (Ativan) 2 mg PO Q4H NOHEMI; Taper Stop: 10/17/19 01:59 Last Admin: 10/13/19 06:50 Dose: 2 mg Documented by: Magnesium Hydroxide (Milk Of Magnesia) 30 ml PO DAILY PRN PRN PRN Reason: Constipation Nutritional Formula (Lactose Free) (Ensure Enlive) 120 ml PO 4X/DAY NOHEMI Ondansetron HCl (Zofran) 4 mg IV Q8H PRN PRN PRN Reason: NAUSEA/VOMITING Ondansetron HCl (Zofran) 8 mg PO Q8H PRN PRN PRN Reason: NAUSEA Pantoprazole Sodium (Protonix) 40 mg PO BID NOHEMI Potassium Phos/Sodium Phos (Neutra-Phos Packet) 1 packet PO 4X/DAY NOHEMI Stop: 10/13/19 18:01 Last Admin: 10/12/19 21:45 Dose: 1 packet Documented by: Sodium Chloride () 10 - 40 ml IV UD PRN PRN Reason: SALINE FLUSH Thiamine HCl (Vitamin B1) 100 mg PO DAILYCM NOHEMI Trazodone HCl (Desyrel) 100 mg PO QHS PRN PRN Reason: INSOMNIA STROKE Vital Signs/Narrative: Vital Signs Pulse Resp BP Pulse Ox 10/13/19 07:29 80 10/13/19 06:58 82 14 100/81 H 97 10/13/19 06:00 88 18 104/75 97 10/13/19 05:00 101 H 16 106/84 H 97 Medical Necessity - Tobacco Use Smoking Status: Current every day smoker Tobacco Use: Cigarettes Assessment/Plan All Active Problems Seizure (Acute) Transaminitis (Acute) COPD with acute exacerbation (Acute) Hyponatremia (Acute) 1. Hyponatremia secondary to alcohol abuse/elevated LFTs secondary to alcohol abuse/seizure/thrombocytopenia -His seizure is likely secondary to his hyponatremia and his alcohol use, he states that he does not drink but his mother, who he lives with, states that he still drinks beer every day -Continue with alcohol withdrawal protocol as well as normal saline IV fluids -Abdominal ultrasound pending -Cytopenia is chronic and likely related to his alcohol abuse, will monitor and placed on SCDs 2. Peripheral artery disease -Had previous surgery as left lower extremity -He does not take any medications 3. COPD -Not in exacerbation -Continue with inhalers DVT: SCDs Inpatient E&M: 77368 Subs Hosp L2
--- NOTE | 2019-10-13 09:49 | PCM.CON.CC ---
Problem List (1) Seizure Status: Acute (2) Transaminitis Status: Acute (3) Thrombocytopenia Status: Chronic (4) Alcohol abuse Status: Chronic (5) Hypokalemia Status: Chronic (6) Hyponatremia Status: Acute Reason for Consult Date of Consultation: 10/13/19 Reason for Consultation: Hyponatremia History of Present Illness: The patient is a 49 year old M, with past medical history listed below, who presented to [facility] on 10/12/2019 secondary to periumbilical abdominal pain that began 3 to 4 weeks ago. Patient had reportedly stated he had continuous cramping pain that was 10 out of 10 that was worse with any movement or food. Patient reportedly has also had nausea and 3 episodes of emesis on the day of presentation. No hematemesis or coffee-ground was reported. Patient had also had 3-4 episodes of diarrhea that was described as black and green. She reportedly had some dysuria, but no frequency. Patient has had a cough productive of brown sputum. In the ER, patient was noted to be hypertensive at 150/73 and saturating 90% on room air. EKG was unremarkable. Laboratory work-up showed a platelet count of 27, which is significantly different from baseline. Patient also had a sodium of 117, potassium of 3.2 and a glucose of 164. Patient's liver enzymes were somewhat elevated. Imaging was relatively unremarkable. In the ER, patient had a 2-minute tonic-clonic seizure and was incontinent of urine. Patient was given 2 mg of Ativan and given 100 cc of 3% saline. Less than an hour later, patient was awake and alert and answering appropriately. Patient was admitted to the intensive care unit for further evaluation. Since being in the intensive care unit, patient has received normal saline at 100 cc/h. Patient has had multiple episodes of urination requiring change of his linens 5 times. Patient states that he wears a diaper at baseline, but cannot give any further information. Patient was not very open on my evaluation to further questioning. Patient has been hemodynamically stable and saturating well on room air. Unable to obtain a full review of systems secondary to patient cooperation. Past Medical History Past Medical History (Chronic Problems): Chronic Problems Thrombocytopenia (Chronic) Alcohol abuse (Chronic) Hypokalemia (Chronic) Allergies No Known Allergies Allergy (Verified 10/12/19 11:42) Home Medications: Ambulatory Orders Medication Instructions Recorded NK 11/16/18 Surgical History: - - left hip surgery and fractured pelvis from [facility] Psychiatric History: No pertinent psych hx Lives: With Family - lives with mother Smoking Status: Current every day smoker Tobacco Use: Cigarettes Alcohol: Sober Drugs: None - *Family History Maternal History Items: - - anxiety Paternal History Items: Heart Disease, - - father industrial truck mechanic and had 2 heart attacks Review of Systems Unable to obtain accurate/complete ROS d/t: Patient cooperation Patient Problems: Active and Suspected Problems Seizure (Acute) Transaminitis (Acute) Objective: All imaging was personally reviewed. Agree with full interpretation. CT of the head does not appear to show any adenoma of the pituitary. - Physical Exam Vitals/I&O's: Vital Signs Temp Pulse Resp BP Pulse Ox 37.0 C 80 14 100/81 H 97 10/13/19 04:00 10/13/19 07:29 10/13/19 06:58 10/13/19 06:58 10/13/19 06:58 Oxygen Flow Rate (L/min) 6 Oxygen Delivery Method Room Air Weight: 65.2 kg Body Mass Index (BMI) 19.8 Intake and Output for Last 24 Hours 10/11/19 10/12/19 10/13/19 23:59 23:59 23:59 Intake Total 2265.67 / 2265.67 1240 / 1240 Output Total 500 / 500 600 / 600 Balance 1765.67 / 1765.67 640 / 640 General: Alert, No apparent distress, Non-Cooperative, - - Thin build. Opened eyes on my arrival, but then played like he was sleeping. HEENT: Atraumatic, PERRLA, EOMI, Normocephalic, - - No scleral icterus or injection noted. Glasses in place. Oral: No Gingival or Mucosal Lesions/ Ulcerations, Dry Mucosa Neck: Supple, No JVD, No Nodes, Trachea Midline Lungs: No rhonchi, No wheeze, No rales, Diminished, - - Fair effort Cardiovascular: Normal S1, Normal S2, No murmurs, No rub noted, No Gallop, Tachycardic Abdomen: Bowel Sounds Present, Soft, Non Tender, Non-Distended Extremities: No clubbing, No cyanosis, No edema, Capillary Refill Less than 3 Seconds Skin: No rashes, No breakdown Musculoskeletal: No Tenderness to Palpation of Joints or Extremities Lymphatic: No Cervical, Supraclavicular, or Inguinal Adenopathy Neurological: Cranial nerves II-XII grossly intact, Neuro grossly intact - As much as patient would cooperate. Spontaneous movement of all extremities noted Psych/Mental Status: - - Odd affect. Laboratory Results 10/12/19 12:35: WBC 4.5, RBC 3.67 L, Hgb 12.3 L, Hct 33.5 L, MCV 91.3, MCH 33.5 H, MCHC 36.7 H, RDW Std Deviation 41.1, RDW Coeff of José 12.4, Plt Count 27 L*, MPV 11.1, Immature Gran % (Auto) 0.400, Neut % (Auto) 78.8 H, Lymph % (Auto) 10.5 L, [place] % (Auto) 7.8, Eos % (Auto) 1.8, Baso % (Auto) 0.7, Absolute Neuts (auto) 3.5, Absolute Lymphs (auto) 0.47 L, Nucleated RBC % 0, Differential Comment COMMENT, Diff Path Review May boby, Platelet Estimate MKD DEC, RBC Morphology NORM C+C 10/12/19 12:35: Sodium 117 L*, Potassium 3.2 L, Chloride 81 L, Carbon Dioxide 24.0, Anion Gap 12, BUN 6 L, Creatinine 0.70, Estim Creat Clear Calc 128.16, Est GFR (MDRD) Af Amer 152, Est GFR (MDRD) Non-Af 125, BUN/Creatinine Ratio 8.5 L, Glucose 164 H, Calcium 8.7, Total Bilirubin 2.60 H, AST 346 H, ALT 263 H, Alkaline Phosphatase 124 H, Total Protein 7.3, Albumin 3.7, Globulin 3.6, Albumin/Globulin Ratio 1.0, Lipase 296 10/12/19 12:35: Ethyl Alcohol < 3.0 10/12/19 12:35: PT 12.2, INR 0.9, APTT 27.8 10/12/19 14:45: Urine Color Annie, Urine Clarity Sl. Cloudy, Urine pH 6.5, Ur Specific [place] 1.010, Urine Protein 15 H, Urine Glucose (UA) 100 H, Urine Ketones Negative, Urine Occult Blood 25 H, Urine Nitrite Negative, Urine Bilirubin Negative, Urine Urobilinogen 1 H, Ur Leukocyte Esterase Negative, Urine RBC 0-5 SEEN, Urine WBC 0 SEEN, Ur Squamous Epith Cells 0-5 SEEN, Urine Bacteria RARE, Urine Mucus 0 SEEN 10/12/19 14:45: Urine Opiates Screen NEGATIVE, Urine Methadone Screen NEGATIVE, Ur Barbiturates Screen NEGATIVE, Ur Phencyclidine Scrn NEGATIVE, Ur Amphetamines Screen NEGATIVE, U Methamphetamin-MDMA NEGATIVE, U Benzodiazepines Scrn NEGATIVE, Urine Cocaine Screen NEGATIVE, U Cannabinoids Screen NEGATIVE, Ur Drug Screen Comment 10/12/19 14:45: Urine Osmolality 435 10/12/19 14:45: Urine Creatinine 76.90 10/12/19 14:45: Ur Random Sodium 55 10/12/19 17:25: Sodium 124 L, Potassium 3.2 L, Chloride 86 L, Carbon Dioxide 29.0, Anion Gap 9, BUN 3 L, Creatinine 0.60 L, Estim Creat Clear Calc 137.09, Est GFR (MDRD) Af Amer 182, Est GFR (MDRD) Non-Af 151, BUN/Creatinine Ratio 5.0 L, Glucose 125 H, Calcium 8.2 L, Phosphorus 2.1 L, Magnesium 1.6 10/12/19 17:25: Sodium Pending, Potassium Pending, Chloride Pending, Carbon Dioxide Pending, Anion Gap Pending, BUN Pending, Creatinine Pending, Est GFR (MDRD) Af Amer Pending, Est GFR (MDRD) Non-Af Pending, BUN/Creatinine Ratio Pending, Glucose Pending, Calcium Pending, TSH 1.11 10/12/19 17:25: Serum Osmolality 253 L 10/12/19 18:55: Sodium 125 L, Potassium 3.2 L, Chloride 86 L, Carbon Dioxide 29.0, Anion Gap 10, BUN 3 L, Creatinine 0.67 L, Estim Creat Clear Calc 122.77, Est GFR (MDRD) Af Amer 161, Est GFR (MDRD) Non-Af 133, BUN/Creatinine Ratio 4.5 L, Glucose 130 H, Calcium 8.7 10/12/19 18:55: Hepatitis A IgM Ab Pending, Hep Bs Antigen Pending, Hep B Core IgM Ab Pending, Hepatitis C Ab (EIA) Pending 10/12/19 21:35: Sodium 131 L, Potassium 3.7, Chloride 96 L, Carbon Dioxide 28.0, Anion Gap 7, BUN 4 L, Creatinine 0.72, Estim Creat Clear Calc 114.24, Est GFR (MDRD) Af Amer 148, Est GFR (MDRD) Non-Af 122, BUN/Creatinine Ratio 5.6 L, Glucose 118 H, Calcium 8.8 10/12/19 23:30: Sodium Cancelled, Potassium Cancelled, Chloride Cancelled, Carbon Dioxide Cancelled, Anion Gap Cancelled, BUN Cancelled, Creatinine Cancelled, Estim Creat Clear Calc Cancelled, Est GFR (MDRD) Af Amer Cancelled, Est GFR (MDRD) Non-Af Cancelled, BUN/Creatinine Ratio Cancelled, Glucose Cancelled, Calcium Cancelled 10/13/19 00:37: Sodium 131 L, Potassium 3.8, Chloride 98, Carbon Dioxide 27.0, Anion Gap 6, BUN 4 L, Creatinine 0.68 L, Estim Creat Clear Calc 120.96, Est GFR (MDRD) Af Amer 157, Est GFR (MDRD) Non-Af 130, BUN/Creatinine Ratio 5.9 L, Glucose 102, Calcium 8.7 10/13/19 06:15: WBC 5.2, RBC 3.95 L, Hgb 13.3, Hct 36.9 L, MCV 93.4, MCH 33.7 H, MCHC 36.0, RDW Std Deviation 44.9 H, RDW Coeff of José 13.1, Plt Count 23 L*, MPV 12.9 H, Immature Gran % (Auto) 0.400, Neut % (Auto) 80.3 H, Lymph % (Auto) 13.1 L, [place] % (Auto) 5.2, Eos % (Auto) 0.6, Baso % (Auto) 0.4, Absolute Neuts (auto) 4.2, Absolute Lymphs (auto) 0.68 L, Nucleated RBC % 0, Differential Comment SCANNED, Diff Path Review November boby, Platelet Estimate MKD 10/13/19 06:15: Sodium 136, Potassium 3.2 L, Chloride 101, Carbon Dioxide 27.0, Anion Gap 8, BUN 3 L, Creatinine 0.61 L, Estim Creat Clear Calc 132.12, Est GFR (MDRD) Af Amer 179, Est GFR (MDRD) Non-Af 148, BUN/Creatinine Ratio 4.9 L, Glucose 97, Calcium 8.5, Magnesium 2.2, Total Bilirubin 2.00 H, AST 407 H, ALT 279 H, Alkaline Phosphatase 117, Total Protein 6.7, Albumin 3.3, Globulin 3.4, Albumin/Globulin Ratio 1.0 10/13/19 06:15: Phosphorus 2.4 L Current Medications Acetaminophen (Tylenol) 650 mg PO Q6H PRN PRN PRN Reason: Pain Score 1-10/Temp > 100.7 F Dicyclomine HCl (Bentyl) 20 mg PO Q6H PRN PRN PRN Reason: abdominal discomfort Folic Acid (Folic Acid) 1 mg PO DAILY@0800 NOHEMI Gabapentin (Neurontin) 300 mg PO Q8H PRN PRN PRN Reason: moderate to severe anxiety Hydroxyzine Pamoate (Vistaril Pamoate Capsule) 50 mg PO Q4H PRN PRN PRN Reason: mild anxiety Sodium Chloride () 1,000 mls @ 100 mls/hr IV .Q10H [facility] Stop: 10/13/19 16:14 Last Admin: 10/13/19 06:50 Dose: 100 mls/hr Documented by: Loperamide HCl (Imodium) 2 mg PO Q4H PRN PRN PRN Reason: LOOSE STOOLS Lorazepam (Ativan) 2 mg IV PRN PRN PRN Reason: SEIZURES Lorazepam (Ativan) 2 mg PO Q4H [facility]; Taper Stop: 10/17/19 01:59 Last Admin: 10/13/19 06:50 Dose: 2 mg Documented by: Magnesium Hydroxide (Milk Of Magnesia) 30 ml PO DAILY PRN PRN PRN Reason: Constipation Nutritional Formula (Lactose Free) (Ensure Enlive) 120 ml PO 4X/DAY [facility] Ondansetron HCl (Zofran) 4 mg IV Q8H PRN PRN PRN Reason: NAUSEA/VOMITING Ondansetron HCl (Zofran) 8 mg PO Q8H PRN PRN PRN Reason: NAUSEA Pantoprazole Sodium (Protonix) 40 mg PO BID [facility] Potassium Phos/Sodium Phos (Neutra-Phos Packet) 1 packet PO 4X/DAY [facility] Stop: 10/13/19 18:01 Last Admin: 10/12/19 21:45 Dose: 1 packet Documented by: Sodium Chloride () 10 - 40 ml IV UD PRN PRN Reason: SALINE FLUSH Thiamine HCl (Vitamin B1) 100 mg PO DAILYCM NOHEMI Trazodone HCl (Desyrel) 100 mg PO QHS PRN PRN Reason: INSOMNIA Clinical Impression(s) from Imaging Studies Abdomen/Pelvis CT 10/12/19 12:15 IMPRESSION: Thick-walled urinary bladder which may be due to under distention or cystitis. Clinical correlation is recommended. Normal kidneys. No hydronephrosis. No bowel obstruction or inflammation. Fatty liver. Electronically Signed: Brandt Gu, at 15:32 EDT Tel , Service support , Brain CT 10/12/19 12:26 IMPRESSION: No acute intracranial abnormality. Electronically Signed: Brandt Gu, at 15:40 EDT Tel , Service support , Chest X-Ray 10/12/19 14:55 IMPRESSION: No acute thoracic pathology. Electronically Signed: Brandt Gu, at 15:10 EDT Tel , Service support , Assessment/Plan Active and Suspected Problems Seizure (Acute) Transaminitis (Acute) RECOMMENDATIONS: 1. Consider oncology consult 2. Okay to discontinue IV fluids 3. Okay to transition to daily sodium checks 4. Increase activity as tolerated 5. FRANCES dynamically stable on room air. Will sign off from a critical care perspective IMPRESSIONS: 1. New onset seizure secondary to hypovolemic hyponatremia Unclear etiology at this time. Patient does have some elevated LFTs, so alcohol would be a consideration. Patient also has new onset thrombocytopenia, but hemoglobin is normal, along with white blood cells. Consider hematology evaluation as clumping has not been reported. No bleeding complications have been noted. Patient reportedly does have alcohol every day. Consider initiation of CIWA protocol. Another possible etiology would include Gilbert syndrome, but patient appears to have responded to volume resuscitation. No pituitary enlargement noted on CAT scan of the head. Likely okay to discontinue IV fluids from my perspective. Likely not necessary to have an EEG at this time given correction with sodium. This could be completed as an outpatient if there is further concern. 2. Peripheral artery disease/reported COPD/poor cooperation/low BMI Complicates care, management, recovery and prognosis. Do not believe patient is currently in an exacerbation of COPD. Patient could have a walking oximetry prior to discharge, but suspicion for need for supplemental oxygen is low. Patient may have an element of pulmonary cachexia. Consider evaluation by dietitian. Inpatient E&M: 23394 Init Hosp L3
[2019-10-13] MEDS: Folic Acid 1 MG Tablet PO (10:04)
[2019-10-13] MEDS: Thiamine Hydrochloride 100 MG Tablet PO (10:04)
[2019-10-13] MEDS: Na Biphos/Potassium Phosphate PACKET 1 PACKET PO ×3 (10:04→18:27)
[2019-10-13] MEDS: Pantoprazole Sodium 40 MG Tablet PO ×2 (10:07→21:52)
--- NOTE | 2019-10-13 12:35 | NURSING ---
report called to Akira ACOSTA on PCU and pt transferred to room 107 on the monitor with this RN, at this time.
[2019-10-14] MEDS: LORazepam 1 MG Tablet PO ×3 (02:21→10:15)
[2019-10-14 03:00] VITALS: PULSE 79
[2019-10-14 03:30] VITALS: BP 102/69; PULSE 89; RESP 18; TEMP 36.4; O2SAT 99
[2019-10-14 05:30] LABS: Absolute Lymphocyte Count 1.09 X10^3/uL (0.83-4.51); Absolute Neutrophil Count 4.2 X10^3/uL (2.0-7.7); Basophil# 0.05 X10^3/uL; Basophil% 0.9 % (0-1); Eosinophil# 0.07 X10^3/uL; Eosinophils% 1.2 % (0-5); Hematocrit 37.9 % (40-54); Lymphocyte # 1.09 X10^3/ul (4.0); Lymphocyte % 18.7 % (19-41); Mean Corp Hgb Conc 34.3 g/dL (32-36); Mean Corpuscular Hgb 32.7 pg (27.0-32.0); Mean Corpuscular Volume 95.2 fL (80-94); Mean Platelet Vol. 13.8 fl (6.2-12.0); Monocyte% 6.9 % (0-10); NRBC Flagged by Analyzer 0 % (0-5); Neutrophil # 4.19 X10^3/uL (2.7-7.7); Neutrophil % 71.8 % (47-70); POSITIVE COUNT YES; RBC Distribution Width CV 13.5 % (11.6-14.6); RBC Distribution Width SD 47.8 fl (35.1-43.9); Red Blood Count 3.98 M/mm3 (4.6-6.2); White Blood Count 5.8 K/mm3 (4.4-11.0)
[2019-10-14 05:39] LABS: Differential Indicated SCAN CRITERIA MET; Platelet Count 24 K/mm3 (150-450)
[2019-10-14 05:49] LABS: Differential Comment SCANNED; Platelet Estimate MKD DEC (ADEQ)
[2019-10-14 05:50] LABS: ALB/GLOB Ratio 0.9 RATIO (0.9-2.4); AST(SGOT) 245 U/L (15-37); Alanine Aminotransfer ALT/SGPT 257 U/L (16-61); Albumin, Serum 3.4 g/dL (3.2-5.0); Alkaline Phosphatase 160 U/L (45-117); Anion Gap 7 (5-15); BUN 7 mg/dL (7-18); BUN/Creat Ratio 11.6 RATIO (10-20); Calcium,Total 8.9 mg/dL (8.5-10.1); Chloride 99 mmol/L (98-107); EST Glomerular Filtration Rate 149 mL/min (>60); Est Glom Filt Rate - Afr Amer 180 mL/min (>60); Estimated Creatinine Clearance 134.32 ml/min; Globulin 3.9 g/dL (2.2-4.2); Glucose 89 mg/dL (74-106); Protein, Total 7.3 g/dL (6.4-8.2); Sodium Level 132 mmol/L (136-145)
[2019-10-14 06:37] VITALS: PULSE 81
[2019-10-14 10:13] VITALS: BP 105/69; PULSE 103; RESP 18; TEMP 36.5; O2SAT 96
[2019-10-14] MEDS: Pantoprazole Sodium 40 MG Tablet PO (10:15)
[2019-10-14] MEDS: Folic Acid 1 MG Tablet PO (10:15)
[2019-10-14] MEDS: Thiamine Hydrochloride 100 MG Tablet PO (10:15)
--- NOTE | 2019-10-14 11:08 | PCM.DC ---
- Discharge Diagnoses Current Active Problems: Current Active and Chronic Problems Seizure (Acute) Transaminitis (Acute) Thrombocytopenia (Chronic) You will use the following diet at home:: Other - No alcohol at all. Your food should be the consistency of: Regular Your liquids should be the consistency of: Regular/Thin Discharge Activity: Return to Normal Activity, - - again, no alcohol consumption at all. Additional Instructions: You will need a CMP (blood test) in 1 week, talk to your primary care provider to arrange this. Allergies/Adverse Reactions: Allergies No Known Allergies Allergy (Verified 10/12/19 11:42) Medications to take at Discharge Pantoprazole Sodium [Protonix] 40 mg PO BID #60 tab 10/14/19 The following prescriptions were given: Pantoprazole Sodium [Protonix] 40 mg PO BID #60 tab Transmission Status: Pending to [facility] Primary Care Physician: Care Physician,No Primary [Primary Care Provider] - Please follow up with your Primary Care Physician in: 1 week Test Results: Test results from this visit will be discussed in further detail at your follow-up appointment, if applicable. Please Follow Up With: Olivier Mo MD - Surgeon, Endoscopy When: 2 weeks Proposed Discharge Date: 10/14/19
[2019-10-14 11:18] LABS: Pathologist Review Reviewed
[2019-10-14 11:18] LABS: Pathologist Review Reviewed
[2019-10-14 11:19] LABS: Pathologist Review Reviewed
--- NOTE | 2019-10-14 11:33 | CASEMGMT ---
This RN CM to room to complete CM assessment at this time and pt is sleeping without distress. Pt does not awaken to knock on door or verbal stimuli at this time. Will attempt again later. [place] RN CM
--- NOTE | 2019-10-14 12:00 | CASEMGMT ---
DAVE PETIT assessment: Face to Face with patient for initial transition planning/care coordination assessment. DAVE PETIT introduced self and role at [facility], pt voices understanding and consents to assessment at this time. Pt is sitting up in bed with food tray in no distress at this time. Pt is A/Ox4 at this time and answers all questions appropriately at this time. Care providers, pharmacy, and demographics verified at this time. Presentation: N/V/D, abd pain x 3weeks Admitting dx: Severe hyponatremia PCP: Pt states no current PCP, this DAVE PETIT did discuss [facility] and info given Specialists: Pt states no current specialists. Preferred Pharmacy: [facility] Insurance: Self-pay-E.Yang SW aware Prescription Benefit: Self-pay Living Will/HPOA: Pt states does not have LW/HPOA at this time. Pt declines AD info at this time. LNOK: Ana Cam, mother Living Arrangements: Pt states he lives in the basement of his mother's 1 story home and states no concerns at home at this time. Pt states is independent with ADL's. Transportation: Pt states drives self and states no transportation concerns at this time. DME/HHC: Pt states has a walker at home and states no need for any further DME. Pt states no hx of HHC or SNF in the past. Pt states no concerns with going home at time of discharge. Pt states is currently unemployed. Pt states smokes about a pack/day of cigarettes and states has not drank ETOH in 6months. Pt states no further concerns/needs at this time. CM to follow for any further discharge planning/needs. Advised pt to ask for CM if any further questions/concerns/needs arise, voices understanding. Pt Goal: Home Plan: Home [place] DAVE PETIT
--- NOTE | 2019-10-14 12:07 | CASEMGMT ---
SW gave patient information on [facility], [facility], [facility], and a Medicaid application. Shyana KAPOOR MSW
--- NOTE | 2019-10-14 13:47 | PCM.DC.SUM ---
<Burak Lopez - Last Filed: 10/14/19 13:47> Discharge Date and Diagnosis Date of Admission: 10/12/19 Date of Discharge: 10/14/19 - Primary Discharge Diagnosis Abdominal pain secondary to alcoholic hepatitis Alcohol withdrawal Seizure 2/2 alcohol withdrawal and hyponatremia Severe hyponatremia secondary to beer potomania Thrombocytopenia secondary to alcoholic liver disease PAD COPD no exacerbation - Secondary Discharge Diagnosis Chronic Problems Thrombocytopenia (Chronic) Alcohol abuse (Chronic) Hypokalemia (Chronic) Hospital Course and Treatment Imaging Results: CT/Abdomen/Pelvis W IV Cont ONLY IMPRESSION: Thick-walled urinary bladder which may be due to under distention or cystitis. Clinical correlation is recommended. Normal kidneys. No hydronephrosis. No bowel obstruction or inflammation. Fatty liver. CT/Brain/Head without Contrast IMPRESSION: No acute intracranial abnormality. RAD/Chest 1 View (Portable) IMPRESSION: No acute thoracic pathology. Consults: Santos - critical care Operations: None Procedures: None Summary of Care Provided: Hospital Course: The patient is a 49 year old M with a past medical history of alcoholism drinking 10-12 beers per day, COPD, peripheral artery disease, who presented to the emergency room with complaints of ongoing abdominal pain for about 1 month. This was described as diffuse abdominal aching pain. After arrival to the ER the patient experienced a seizure and was given Ativan. He recovered from his seizure had a brief postictal phase, then became more confused. His blood work came back with severe hyponatremia. The patient was given 100 cc of 3% saline after which his mental status returned to baseline. CT of the abdomen was obtained and demonstrated thick-walled urinary bladder, possible cystitis, fatty liver. Urinalysis was negative. He had no fever or leukocytosis. He did have marked thrombocytopenia with platelet count of 27,000, he did have normal INR however.. The patient was insisted that he did not drink however we called his mother whom he lives with and she indicated that he is still an alcoholic, he later during his admission admitted that he does continue to drink 10-12 beers per day. The patient was admitted to the ICU for hyponatremia with seizures, probable alcohol withdrawal. EtOH level was negative at admission. He was given scheduled Ativan taper and as needed Ativan. He was placed on CIWA protocol, given folate and thiamine. He had no further seizure activity. His sodium resolved overnight. He was transferred out of the ICU to PCU and continued to remain stable. The patient had no further abdominal pain. It was felt that his initial abdominal pain was secondary to alcoholic hepatitis. We strongly advised him on discontinuation of use of all alcohol. Case management referral was made for substance abuse. He was discharged home in stable condition. He was discharged on Protonix twice daily, as he had reported that in the last 2 months he had an episode of scattered blood in his vomitus. Despite this he has a normal hemoglobin at this time. I have advised that he follow-up with a's general surgeon as an outpatient for possible endoscopy in the next 2 weeks. He will also need to follow-up with his PCP in 1 to 2 weeks. He was discharged home in stable condition. This patient was seen by Burak Lopez PA-C under the supervision of Doctor Pineda. [] - Physical Exam Vitals/I&O's: Vital Signs Temp Pulse Resp BP Pulse Ox 97.7 F L 103 H 18 105/69 96 10/14/19 10:13 10/14/19 10:13 10/14/19 10:13 10/14/19 10:13 10/14/19 10:13 Oxygen Flow Rate (L/min) 6 Oxygen Delivery Method Room Air Weight: 145 lb 4.554 oz Body Mass Index (BMI) 19.8 Intake and Output for Last 24 Hours 10/12/19 10/13/19 10/14/19 23:59 23:59 23:59 Intake Total 2265.67 / 2265.67 2800 / 2800 Output Total 500 / 500 800 / 800 100 / 100 Balance 1765.67 / 1765.67 1999 -100 / -100 General: Alert, Oriented x3, Cooperative, - - unkempt, disheveled HEENT: Atraumatic, PERRLA, EOMI, Normocephalic Neck: Supple, No JVD, Negative Carotid Bruits Lungs: Clear to auscultation, Normal air movement Cardiovascular: Regular rate, No murmurs Abdomen: Bowel Sounds Present, Soft, Tender - mild tenderness RUQ, palpable liver border Extremities: No edema, Capillary Refill Less than 3 Seconds Skin: No rashes, No breakdown Musculoskeletal: No Tenderness to Palpation of Joints or Extremities Neurological: Cranial nerves II-XII grossly intact Psych/Mental Status: Normal Affect, Appropriate, Alert and oriented to time, place, person, mood and affect Laboratory Results 10/12/19 12:35: Diff Path Review Reviewed 10/13/19 06:15: Diff Path Review Reviewed 10/14/19 04:54: WBC 5.8, RBC 3.98 L, Hgb 13.0, Hct 37.9 L, MCV 95.2 H, MCH 32.7 H, MCHC 34.3, RDW Std Deviation 47.8 H, RDW Coeff of José 13.5, Plt Count 24 L*, MPV 13.8 H, Immature Gran % (Auto) 0.500, Neut % (Auto) 71.8 H, Lymph % (Auto) 18.7 L, Irion % (Auto) 6.9, Eos % (Auto) 1.2, Baso % (Auto) 0.9, Absolute Neuts (auto) 4.2, Absolute Lymphs (auto) 1.09, Nucleated RBC % 0, Differential Comment SCANNED, Diff Path Review Reviewed, Platelet Estimate MKD 10/14/19 04:54: Sodium 132 L, Potassium 4.0, Chloride 99, Carbon Dioxide 26.0, Anion Gap 7, BUN 7, Creatinine 0.60 L, Estim Creat Clear Calc 134.32, Est GFR (MDRD) Af Amer 180, Est GFR (MDRD) Non-Af 149, BUN/Creatinine Ratio 11.6, Glucose 89, Calcium 8.9, Total Bilirubin 1.80 H, AST 245 H, ALT 257 H, Alkaline Phosphatase 160 H, Total Protein 7.3, Albumin 3.4, Globulin 3.9, Albumin/Globulin Ratio 0.9 Discharge Diet: - - no alcohol Discharge Activity: Return to Normal Activity, - - again, no alcohol consumption at all. Home Medications: Medications to take at Discharge Pantoprazole Sodium [Protonix] 40 mg PO BID #60 tab 10/14/19 Following Prescrptions Were Given to Patient: Pantoprazole Sodium [Protonix] 40 mg PO BID #60 tab Transmission Status: Received by [facility] Primary Care Physician: Care Physician,No Primary [Primary Care Provider] - Please follow up with your Primary Care Physician in: 1 week Please Follow Up With: Olivier Mo MD - Surgeon, Endoscopy When: 2 weeks Medical Necessity - Tobacco Use Smoking Status: Current every day smoker Tobacco Use: Cigarettes Meaningful Use Info Meaningful Use Diagnoses (Choose all that apply): None applicable <Rigo Pineda - Last Filed: 10/14/19 14:41> Discharge Date and Diagnosis - Secondary Discharge Diagnosis Chronic Problems Thrombocytopenia (Chronic) Alcohol abuse (Chronic) Hypokalemia (Chronic) Hospital Course and Treatment Summary of Care Provided: This patient was seen in conjunction with Burak SMITH. I have independently interviewed and examined the patient and reviewed pertinent history, examination findings, laboratory and plan of management. I have reviewed the note and agree with the documented findings with the few additional points. In brief, patient is 48-year-old gentleman with history of chronic alcohol use and dependence, COPD peripheral arterial disease is admitted for abdominal pain, for 1 month. In ED, patient was found to be confused and had seizure and was given Ativan. Lab work showed severe hyponatremia 117 for which 100 mL of 3% sodium chloride was given. Patient also has severe thrombocytopenia secondary to chronic alcohol use. Normal INR. CT abdomen was done which shows thick-walled urinary bladder possible cystitis, fatty liver. Normal kidneys, no hydronephrosis. UA negative. No fever or chills. The patient was admitted to ICU for severe hyponatremia and seizure and placed on CIWA protocol. Hyponatremia resolved, patient was transferred to PCU. His abdominal pain mostly secondary to alcoholic hepatitis. Transaminases are elevated although getting better. Last TB 1.8. Hepatitis panel pending. Hypomagnesemia and magnesium was replaced. Repeat magnesium normal. On thiamine, folic acid and MVI. Patient is discharged home on PPI twice daily. The home health care case manager was consulted. Discharge medication reconciliation done. Discharge follow-up instructions completed. Discharge process discussed with the patient and all questions were answered to patient's satisfaction. Total time spent, exact 35 minutes on discharge meds reconciliation, examination, coordination of care with nurses and ancillary staff, review of imaging and blood test and discussion with the patient on follow-up instructions. Patient will try to follow-up surgery next week for EGD. Advised alcohol cessation. I have discussed my assessment with Burak SMITH and orders have been reviewed. [] Subjective: Seen and examined. Patient is admitted for confusion, seizure, abdominal pain and hyponatremia. His sodium was 117. Was given 100 mL 3% NaCl in ED. Patient has history of chronic alcohol use. At one time probably within last 3 years he had hematemesis but I do not think he had EGD although history is not clear-cut does not remember well and takes long time in recall. He started drinking at the age of 14 increased to 8 bottles of beer every day. History he has no plan for quitting alcohol. Patient also has history of peripheral arterial disease, COPD and seizure. - Physical Exam Vitals/I&O's: Vital Signs Temp Pulse Resp BP Pulse Ox 97.7 F L 103 H 18 105/69 96 10/14/19 10:13 10/14/19 10:13 10/14/19 10:13 10/14/19 10:13 10/14/19 10:13 Oxygen Flow Rate (L/min) 6 Oxygen Delivery Method Room Air Weight: 145 lb 4.554 oz Body Mass Index (BMI) 19.8 Intake and Output for Last 24 Hours 10/12/19 10/13/19 10/14/19 23:59 23:59 23:59 Intake Total 2265.67 / 2265.67 2800 / 2800 Output Total 500 / 500 800 / 800 100 / 100 Balance 1765.67 / 1765.67 1999 / 1999 -100 / -100 General: Alert, Oriented x3, Cooperative HEENT: Atraumatic, PERRLA, EOMI, Normocephalic Neck: Supple, No JVD, Negative Carotid Bruits Lungs: Clear to auscultation, Normal air movement Cardiovascular: Regular rate, Regular Rhythm, Normal S1, Normal S2, No murmurs Abdomen: Bowel Sounds Present, Soft, Tender - mild tenderness RUQ, palpable liver border Right upper quadrant mild tenderness liver palpable 1 cm below right costal margin. Extremities: No edema, Capillary Refill Less than 3 Seconds Skin: No rashes, No breakdown Musculoskeletal: No Tenderness to Palpation of Joints or Extremities, Arthritic Changes, Muscle Wasting Neurological: Cranial nerves II-XII grossly intact Psych/Mental Status: Normal Affect, Appropriate Laboratory Results 10/12/19 12:35: Diff Path Review Reviewed 10/13/19 06:15: Diff Path Review Reviewed 10/14/19 04:54: WBC 5.8, RBC 3.98 L, Hgb 13.0, Hct 37.9 L, MCV 95.2 H, MCH 32.7 H, MCHC 34.3, RDW Std Deviation 47.8 H, RDW Coeff of José 13.5, Plt Count 24 L*, MPV 13.8 H, Immature Gran % (Auto) 0.500, Neut % (Auto) 71.8 H, Lymph % (Auto) 18.7 L, [place]ion % (Auto) 6.9, Eos % (Auto) 1.2, Baso % (Auto) 0.9, Absolute Neuts (auto) 4.2, Absolute Lymphs (auto) 1.09, Nucleated RBC % 0, Differential Comment SCANNED, Diff Path Review Reviewed, Platelet Estimate MKD 10/14/19 04:54: Sodium 132 L, Potassium 4.0, Chloride 99, Carbon Dioxide 26.0, Anion Gap 7, BUN 7, Creatinine 0.60 L, Estim Creat Clear Calc 134.32, Est GFR (MDRD) Af Amer 180, Est GFR (MDRD) Non-Af 149, BUN/Creatinine Ratio 11.6, Glucose 89, Calcium 8.9, Total Bilirubin 1.80 H, AST 245 H, ALT 257 H, Alkaline Phosphatase 160 H, Total Protein 7.3, Albumin 3.4, Globulin 3.9, Albumin/Globulin Ratio 0.9 Inpatient E&M: [id number] Disch Hosp
[2019-10-15 05:06] LABS: HEPATITIS B SURFACE AG Negative (Negative); Hepatitis A IgM Antibody Negative (Negative); Hepatitis B Core AB IgM Negative (Negative)
[2019-10-15 17:37] LABS: Hep C Antibodies <0.1 s/co ratio (0.0-0.9)
== END 2019-10-14 13:23 | disposition home or self-care (01) | DRG 897 ==
LOC: ED 15:32 → ICU 16:32 → PCU 10-13 12:14
PROVIDERS: Family Medicine; Admitting Provider Internal Medicine; Emergency Provider Emergency Medicine; Visit Provider Internal Medicine
DX: F10.239 Alcohol dependence with withdrawal, unspecified (principal); E87.1 Hypo-osmolality and hyponatremia; G40.89 Other seizures; K92.0 Hematemesis; K70.10 Alcoholic hepatitis without ascites; K76.0 Fatty (change of) liver, not elsewhere classified; Y90.0 Blood alcohol level of less than 20 mg/100 ml; E86.1 Hypovolemia; E83.42 Hypomagnesemia; E87.6 Hypokalemia; E86.0 Dehydration; D69.59 Other secondary thrombocytopenia; I73.9 Peripheral vascular disease, unspecified; J44.9 Chronic obstructive pulmonary disease, unspecified; F17.210 Nicotine dependence, cigarettes, uncomplicated
CPT/HCPCS: 36415; 70450; 71045; 74177; 80048; 80053; 80074; 80307; 80320; 81001; 82570; 83690; 83735; 83930; 83935; 84100; 84300; 84443; 85025; 85610; 85730; 93005; 99285; 99406; J7030; Q9967; A4216; G0480; J2405

== ENCOUNTER 2020-09-16 11:34 | Observation (INO) | payer MEDICAID, SELFPAY ==
[2019-10-12 16:57] VITALS: BMI 19.8
[2020-09-16] VITALS (14 sets, daily range): BP systolic 124–170; BP diastolic 81–101; PULSE 60–105; RESP 14–22; TEMP 36.3–36.9; O2SAT 95–100; BMI 20.7; BMI 20.9; BMI 21.0
--- NOTE | 2020-09-16 | APP_PTH ---
PATIENT: TRANG HOLLOWAY LOC: [facility] U#:[id number] AGE/SX: 50/M ROOM: [facility] RE09/16/[address]: Dr. Dwayne De MD : 1970 BED: 1 DIS: 09/18/2020 SPEC #: [id number] RECD: 09/17/20 10:42 STATUS: SCOTT REQ #: [id number] TAM: 09/16/20 00:[address]: Erlinda Kim DEPT: SURGICAL PATHOLOGY RECD BY: Sincere Greenwood ENTERED: 09/17/20 10:43 SP TYPE: APPENDIX OTHR DR: MD Dr. Dwayne Murray MD No Primary Care Phys Tissues: Appendix, NOS Procedures: Surgery Specimen Level III Comments: @ Ordering doctor for SUIII edited from to @ by RGOOD at 09/17/20 1313 @ Submitting doctor edited from to @ by RGOOD at 09/17/20 1313 HEADER OPERATION: Laparoscopic appendectomy PRE-OP DIAGNOSIS: Acute appendicitis TISSUE SUBMITTED: Appendix MICROSCOPIC DIAGNOSIS Appendix, appendectomy: Acute appendicitis involving diverticulum. AM:cheryl 09/21/2020 COMMENT Case has been reviewed in consultation with Dr. Odom who concurs with the above diagnosis. IDC:[email or web address] MICROSCOPIC DESCRIPTION Slides are reviewed. GROSS DESCRIPTION Received in fixative is one container labeled with the patient's name and designated appendix. The specimen consists of an appendix measuring 4 cm in length and up to 1.3 cm in diameter. The serosa is congested. No obvious perforation is identified. The lumen does not contain any fecalith. Heating And Blending Supervisor sections are submitted in one cassette. / KENA:cheryl 09/17/20 The rest of the specimen is submitted in two more cassettes, 2 & 3. / SJ:cheryl 09/18/20 TC:2 CPT: 99197
--- NOTE | 2020-09-16 11:43 | EKG12_ITS ---
Test Reason : NAUSEA Blood Pressure : / mmHG Vent. Rate : 084 BPM Atrial Rate : 084 BPM P-R Int : 176 ms QRS Dur : 094 ms QT Int : 428 ms P-R-T Axes : 084 083 066 degrees QTc Int : 505 ms Normal sinus rhythm Prolonged QT Abnormal ECG Confirmed by DEION RUBIO, TIMI ([id number]), marketing editor ROD GALVEZ ([id number]) on 09/21/2020 10:14:45 A M Referred By: JAIMEE Confirmed By:BAYLEE ALBARRAN MD
--- NOTE | 2020-09-16 11:43 | CT_ITS ---
STUDY: CT ABDOMEN AND PELVIS WITH CONTRAST REASON FOR EXAM: Male, 50 years old. upper abd pain, n/v/d RADIATION DOSAGE (If Supplied By Facility): CTDIvol = ( 10.04 ) mGy, DLP = ( 492.23 ) mGycm TECHNIQUE: Transaxial images were obtained from the dome of the diaphragm to the symphysis pubis without oral contrast. IV 100mL Isovue-300 was administered. Sagittal and coronal images were reconstructed. Individualized dose optimization techniques were used for this CT. COMPARISON: None. FINDINGS: The visualized lung bases are unremarkable. The visualized portions of the heart are within normal limits. There is decreased attenuation of the liver consistent with steatosis. Normal gallbladder and extrahepatic biliary system. Normal spleen. Normal pancreas. Normal bilateral adrenal glands. Normal right kidney. Normal left kidney. Normal visualized stomach. Normal small intestine. Normal colon. There is a tubular, thick-walled appendix (>7mm), with adjacent fat stranding suggesting early acute appendicitis . Normal abdominal aorta. Normal inferior vena cava. Normal retroperitoneum. Normal urinary bladder. Normal abdominal wall. Normal osseous structures. CT/Abdomen/Pelvis W IV Cont ONLY IMPRESSION: Possible early acute appendicitis. Electronically Signed: Vern Mcgill MD at 13:43 EST Tel , Service support ,
--- NOTE | 2020-09-16 11:49 | ED.DCSUM_ITS ---
- ER Visit Summary Date of Service: 09/16/20 Chief Complaint: Nausea, vomiting, diarrhea History of Present Illness: The patient is a 50 M with a history of alcoholic liver disease, elevated LFTs, low platelets, withdrawal seizures, hypokalemia, hyponatremia. He has not had alcohol for 6 months. He presents with nausea, vomiting, diarrhea. This has been intermittent over the past week. He had 2 episodes of vomiting and 4 episodes of diarrhea today. Both nonbloody. He reports upper abdominal pain. Physical Examination: Hypertensive. Otherwise vitals unremarkable. Afebrile. No acute distress. Upper abdomen is diffusely tender. No guarding or rebound. Otherwise exam is unremarkable. No jaundice. Test Results: EKG, labs, CT pending. Emergency Department Course and Treatment: Patient was treated with IV fluids, Zofran, Protonix while awaiting results. He was placed on the monitor. N.p.o. Hemoglobin 12, stable. Platelets 79, stable. Sodium 127, slightly decreased from baseline, but he typically has hyponatremia. Potassium 3.1. Replacement was ordered. Magnesium was normal. Anion gap 16, glucose 143, BUN 6, total bilirubin 1.4 stable. ALT 64, AST 70, improved. Lipase 270. INR normal. CT is still pending. CT showed acute appendicitis. I reexamined the patient. He did have some lower abdominal tenderness still. No guarding or rebound. Vital signs were stable. He was discussed with Dr. Kim as he has no PCP or general surgeon, and she was on-call. Patient complained that his legs felt weak today, on my reevaluation. His strength was good in all muscle groups, symmetric. He was able to stand and use the urinal. I suspect this is related to his underlying multiple medical issues today. She requested a chest x-ray for preop, Covid for preop, and the patient was s tarted on Zosyn. Treatment Plan: As above Disposition: Admission Impression: Acute appendicitis Hypokalemia Hyponatremia Elevated liver enzymes Anemia Thrombocytopenia This note was generated with Bit[employer]stant dictation software. It may contain incorrect words, spelling, and punctuation that were not noted in review of the chart prior to signing ED Disposition - Plan for ED Patient: Referrals: Care Physician,No Primary [Primary Care Provider] -
[2020-09-16] MEDS: Ondansetron 4 MG/2 ML Vial IV (11:52)
[2020-09-16] MEDS: 0.9% Normal Saline 1,000 ML 1000 ML IV (11:52)
[2020-09-16 11:53] LABS: Absolute Lymphocyte Count 1.01 X10^3/uL (0.83-4.51); Absolute Neutrophil Count 7.1 X10^3/uL (2.0-7.7); Basophil# 0.04 X10^3/uL; Basophil% 0.5 % (0-1); Eosinophil# 0.01 X10^3/uL; Eosinophils% 0.1 % (0-5); Hematocrit 34.5 % (40-54); Lymphocyte # 1.01 X10^3/ul (4.0); Lymphocyte % 11.7 % (19-41); Mean Corp Hgb Conc 34.8 g/dL (32-36); Mean Corpuscular Hgb 33.2 pg (27.0-32.0); Mean Corpuscular Volume 95.6 fL (80-94); Mean Platelet Vol. 10.5 fl (6.2-12.0); Monocyte# 0.49 X10^3/uL; Monocyte% 5.7 % (0-10); NRBC Flagged by Analyzer 0 % (0-5); Neutrophil # 7.07 X10^3/uL (2.7-7.7); Neutrophil % 81.5 % (47-70); POSITIVE COUNT YES; Platelet Count 79 K/mm3 (150-450); RBC Distribution Width CV 14.8 % (11.6-14.6); RBC Distribution Width SD 51.8 fl (35.1-43.9); Red Blood Count 3.61 M/mm3 (4.6-6.2); White Blood Count 8.7 K/mm3 (4.4-11.0)
--- NOTE | 2020-09-16 11:53 | NURSING ---
PT HEMOLIZED PER LAB
[2020-09-16 12:07] LABS: ALB/GLOB Ratio 1.1 RATIO (0.9-2.4); AST(SGOT) 70 U/L (15-37); Alanine Aminotransfer ALT/SGPT 64 U/L (16-61); Alkaline Phosphatase 91 U/L (45-117); Anion Gap 16 (5-15); BUN 6 mg/dL (7-18); BUN/Creat Ratio 8.4 RATIO (10-20); Calcium,Total 8.4 mg/dL (8.5-10.1); Chloride 88 mmol/L (98-107); Creatinine, Serum 0.72 mg/dL (0.70-1.30); EST Glomerular Filtration Rate 122 mL/min (>60); Est Glom Filt Rate - Afr Amer 148 mL/min (>60); Estimated Creatinine Clearance 117.81 ml/min; Globulin 3.7 g/dL (2.2-4.2); Glucose 143 mg/dL (74-106); Lipase 270 U/L (73-393); Magnesium 1.7 mg/dL (1.6-2.6); Potassium 3.1 mmol/L (3.5-5.1); Protein, Total 7.7 g/dL (6.4-8.2); Sodium Level 127 mmol/L (136-145)
[2020-09-16 12:15] LABS: Prothrombin Time (Protime)PT. 12.6 SECONDS (11.7-14.9)
[2020-09-16] MEDS: Potassium Chloride 10mEq/100mL 10 MEQ/100 ML IV.SOLN. 100 MEQ IV BOLUS ×2 (13:05→14:12)
--- NOTE | 2020-09-16 13:52 | NURSING ---
DR JOSE PAGED
--- NOTE | 2020-09-16 14:00 | RAD_ITS ---
STUDY: X-RAY CHEST REASON FOR EXAM: Male, 50 years old. pre op cxr TECHNIQUE: Single AP portable view of the chest. COMPARISON: None. FINDINGS: The lungs are clear and expanded. There is no demonstrated pleural abnormality. Normal size heart. Normal mediastinum and suleiman. Normal visualized pulmonary arteries. Normal visualized aortic arch and descending thoracic aorta. Normal visualized thoracic spine. There is degenerative osteoarthritis of the bilateral shoulders. There is no demonstrated abnormality of the visualized soft tissue structures of the upper abdomen. RAD/Chest 1 View (Portable) IMPRESSION: Degenerative changes, as described above. No demonstrated acute cardiopulmonary process. Electronically Signed: Vern Mcgill MD at 15:08 EST Tel , Service support ,
--- NOTE | 2020-09-16 14:17 | NURSING ---
SURGERY THEN PCU APPENDICITYS, LIVER DISEASE ROBOTHAM
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
[2020-09-16] MEDS: 0.9% Normal Saline 1,000 ML 100 ML IV ×3 (15:15→18:17)
[2020-09-16 15:42] LABS: Vitamin B12 691 pg/mL (211-911)
[2020-09-16 15:43] LABS: Iron 91 ug/dL (65-175); Iron Binding Capacity,Total 249 ug/dL (250-450); PERCENT IRON SATURATION 36.5 % (15.0-55.0); Phosphorus 2.2 mg/dL (2.5-4.9)
[2020-09-16 15:53] LABS: Hemoglobin A1c 5.1 % (3.8-5.6)
[2020-09-16] MEDS: Bupiv/Epi 0.5% Mpf 30 ML Vial (16:30)
--- NOTE | 2020-09-16 16:40 | OP.PCM_ITS ---
Report of Operation Date of Procedure: 09/16/20 Pre-Operative Diagnosis: Acute appendicitis Post-Operative Diagnosis: Acute appendicitis with localized abscess Surgery/Procedure Performed:: Laparoscopic appendectomy Type of Anesthesia:: General/Supplemental Anesthesiologist: Johnathon Dolan Special Medications: Zosyn IV given in the ER for acute appendicitis Drains: craft- 850 cc Estimated Blood Loss (mL): 10 cc Fluids Replaced: 800 cc Description of Procedure: Indications: 50-year-old male presented to the ER with new right lower quadrant pain this morning. On workup he was found to have acute appendicitis on CT and a normal white blood cell count with a shift. Patient was started on antibiotics in the ER for acute appendicitis-on IV Description of the procedure: The patient was placed on operating table in supine position. General anesthesia was induced. A timeout was completed verifying correct patient, procedure, position and special equipment prior to beginning procedure. Abdomen was prepped and draped in usual sterile fashion. Incision was made in the natural skin line of the umbilicus with a 15 blade scalpel. The fascia was elevated and incised. Entry into the peritoneum was confirmed visually and no bowel was noted in the vicinity of the incision. The Porras trocar was placed under direct vision. Abdomen insufflated with a pressure of 12-15 mmHg. Patient tolerated insertion well. The scope was inserted and the abdomen inspected. No injuries from initial trocar placement were noted. Bladder was distended Craft was placed 850 cc. The appendix was retrocecal. An direct visualization 2 -5 mm trocars were placed one right lower quadrant and below the hairline and one in the left lower quadrant lateral to the rectus muscle. Care is taken to avoid injury to the bladder and inferior epigastric vessels. The table was placed in Trendelenburg position with the right side elevated. The appendix was grasped with atraumatic grasper and elevated. It was noted to be inflamed. A window was developed in the mesoappendix at the point between the base of the appendix and the cecum. An endoscopic 45 mm linear cutting stapler blue load was then used to divide and staple the base of the appendix. Enseal was used to divide the mesoappendix. There was a small localized abscess at the tip of the appendix. The appendix was withdrawn into the Porras trocar after being placed endoscopically retrieval bag. Appendix was sent to pathology. The appendiceal stump was then irrigated and hemostasis was assured. Fluid was suctioned no other pathology was identified. Secondary trochars were removed under direct visualization. No bleeding was no marcello trocar sites. The laparoscope withdrawn and the umbilical trocar removed. The abdomen was allowed to collapse. Local anesthesia of 20 mL of 0.5% Marcaine was used at the incision sites. The umbilical trocar site was closed with the [id number] 0 Vicryl suture. The skin was closed up to clear sutures of 4-0 Monocryl and Steri-Strips. The patient was extubated. The patient tolerated the procedure well and was taken to the postanesthesia care unit in satisfactory condition. - Complications none
[2020-09-16] MEDS: Potassium Chloride Oral Tablet 20 MEQ 40 MEQ PO (18:25)
[2020-09-16] MEDS: Folic Acid 1 MG Tablet PO (18:25)
[2020-09-16] MEDS: Thiamine Hydrochloride 100 MG Tablet PO (18:26)
[2020-09-17] VITALS (8 sets, daily range): BP systolic 124–154; BP diastolic 69–104; PULSE 54–91; RESP 16–18; TEMP 36.6–36.9; O2SAT 99–100; BMI 20.9
[2020-09-17] MEDS: 0.9% Normal Saline 1,000 ML 100 ML IV ×2 (03:38→16:16)
--- NOTE | 2020-09-17 05:55 | EKG12_ITS ---
Test Reason : AM EKG Blood Pressure : / mmHG Vent. Rate : 064 BPM Atrial Rate : 064 BPM P-R Int : 128 ms QRS Dur : 090 ms QT Int : 464 ms P-R-T Axes : 062 081 070 degrees QTc Int : 478 ms Normal sinus rhythm Normal ECG When compared with ECG of 16-SEP-2020 12:00, MANUAL COMPARISON REQUIRED, DATA IS UNCONFIRMED Confirmed by RUY RUBIO, DEREJE ([id number]), business editor ROD GALVEZ ([id number]) on 09/23/2020 10:29:55 AM Referred By: VERONICA Confirmed By:DEREJE REDMOND MD
[2020-09-17 05:56] LABS: Absolute Lymphocyte Count 0.48 X10^3/uL (0.83-4.51); Absolute Neutrophil Count 6.8 X10^3/uL (2.0-7.7); Basophil# 0.01 X10^3/uL; Basophil% 0.1 % (0-1); Hematocrit 37.1 % (40-54); Hemoglobin 12.7 g/dL (13.0-16.5); Lymphocyte # 0.48 X10^3/ul (4.0); Lymphocyte % 6.2 % (19-41); Mean Corp Hgb Conc 34.2 g/dL (32-36); Mean Corpuscular Hgb 33.9 pg (27.0-32.0); Mean Corpuscular Volume 98.9 fL (80-94); Mean Platelet Vol. 11.3 fl (6.2-12.0); Monocyte# 0.36 X10^3/uL; Monocyte% 4.7 % (0-10); NRBC Flagged by Analyzer 0 % (0-5); Neutrophil # 6.83 X10^3/uL (2.7-7.7); Neutrophil % 88.6 % (47-70); POSITIVE COUNT YES; POSITIVE DIFFERENTIAL YES; Platelet Count 65 K/mm3 (150-450); RBC Distribution Width CV 15.4 % (11.6-14.6); RBC Distribution Width SD 56.1 fl (35.1-43.9); Red Blood Count 3.75 M/mm3 (4.6-6.2); White Blood Count 7.7 K/mm3 (4.4-11.0)
[2020-09-17 06:00] LABS: Differential Indicated SCAN CRITERIA MET
[2020-09-17 06:24] LABS: ALB/GLOB Ratio 0.9 RATIO (0.9-2.4); AST(SGOT) 61 U/L (15-37); Alanine Aminotransfer ALT/SGPT 60 U/L (16-61); Albumin, Serum 3.7 g/dL (3.2-5.0); Alkaline Phosphatase 80 U/L (45-117); Anion Gap 6 (5-15); BUN 4 mg/dL (7-18); BUN/Creat Ratio 6.5 RATIO (10-20); Calcium,Total 8.4 mg/dL (8.5-10.1); Chloride 101 mmol/L (98-107); Creatinine, Serum 0.62 mg/dL (0.70-1.30); EST Glomerular Filtration Rate 146 mL/min (>60); Est Glom Filt Rate - Afr Amer 176 mL/min (>60); Glucose 113 mg/dL (74-106); Magnesium 1.8 mg/dL (1.6-2.6); Protein, Total 7.7 g/dL (6.4-8.2); Sodium Level 135 mmol/L (136-145)
--- NOTE | 2020-09-17 07:20 | PN.SURG_ITS ---
Patient Problems: Active and Suspected Problems Acute appendicitis (Acute) Sepsis (Acute) Subjective: Patient's abdominal pain is improved since the appendectomy. Patient states he is tolerating diet. Patient only has soreness at incisions. Patient still states that he has numbness and both legs and is unable to walk also states that when he turns his head it feels like he is going to blackout. - Physical Exam Vitals/I&O's: Vital Signs Temp Pulse Resp BP Pulse Ox 97.9 F 60 18 124/86 H 99 09/16/20 23:50 09/17/20 02:13 09/16/20 23:50 09/16/20 23:50 09/16/20 23:50 Oxygen Delivery Method Room Air Weight: 155 lb Body Mass Index (BMI) 20.9 Intake and Output for Last 24 Hours 09/15/20 09/16/20 09/17/20 23:59 23:59 23:59 Intake Total 2431.67 / 2431.67 935 / 935 Output Total 2525 / 2525 800 / 800 Balance -93.33 / -93.33 135 / 135 General: Alert, Oriented x3, Cooperative, No apparent distress Lungs: Normal air movement Cardiovascular: Regular rate Abdomen: Soft, Non-Distended, Tender - Near incision clean dry and intact, no peritoneal signs Psych/Mental Status: Normal Affect Microbiology Past 72 Hours 09/16/20 14:13 Mucosa - Nose SARS-CoV-2 Antigen (Rapid) - Final Laboratory Results 09/16/20 11:40: Phosphorus 2.2 L, Iron 91, TIBC 249 L, Iron Saturation 36.5, Folate 10.30 09/16/20 11:41: WBC 8.7, RBC 3.61 L, Hgb 12.0 L, Hct 34.5 L, MCV 95.6 H, MCH 33.2 H, MCHC 34.8, RDW Std Deviation 51.8 H, RDW Coeff of José 14.8 H, Plt Count 79 L, MPV 10.5, Immature Gran % (Auto) 0.500, Neut % (Auto) 81.5 H, Lymph % (Auto) 11.7 L, Briscoe % (Auto) 5.7, Eos % (Auto) 0.1, Baso % (Auto) 0.5, Absolute Neuts (auto) 7.1, Absolute Lymphs (auto) 1.01, Nucleated RBC % 0 09/16/20 11:41: PT Cancelled, INR Cancelled 09/16/20 11:41: Sodium 127 L, Potassium 3.1 L, Chloride 88 L, Carbon Dioxide 23.0, Anion Gap 16 H, BUN 6 L, Creatinine 0.72, Estim Creat Clear Calc 117.81, Est GFR (MDRD) Af Amer 148, Est GFR (MDRD) Non-Af 122, BUN/Creatinine Ratio 8.4 L, Glucose 143 H, Calcium 8.4 L, Magnesium 1.7, Total Bilirubin 1.40 H, AST 70 H , ALT 64 H, Alkaline Phosphatase 91, Total Protein 7.7, Albumin 4.0, Globulin 3.7, Albumin/Globulin Ratio 1.1, Lipase 270 09/16/20 11:41: Hemoglobin A1c 5.1 09/16/20 11:41: Vitamin B12 691 09/16/20 11:55: PT 12.6, INR 1.0 09/17/20 05:16: WBC 7.7, RBC 3.75 L, Hgb 12.7 L, Hct 37.1 L, MCV 98.9 H, MCH 33.9 H, MCHC 34.2, RDW Std Deviation 56.1 H, RDW Coeff of José 15.4 H, Plt Count 65 L, MPV 11.3, Immature Gran % (Auto) 0.400, Neut % (Auto) 88.6 H, Lymph % (Auto) 6.2 L, Briscoe % (Auto) 4.7, Eos % (Auto) 0.0, Baso % (Auto) 0.1, Absolute Neuts (auto) 6.8, Absolute Lymphs (auto) 0.48 L, Nucleated RBC % 0 09/17/20 05:16: Sodium 135 L, Potassium 4.0, Chloride 101, Carbon Dioxide 28.0, Anion Gap 6, BUN 4 L, Creatinine 0.62 L, Estim Creat Clear Calc 138.60, Est GFR (MDRD) Af Amer 176, Est GFR (MDRD) Non-Af 146, BUN/Creatinine Ratio 6.5 L, Glucose 113 H, Calcium 8.4 L, Magnesium 1.8, Total Bilirubin 1.40 H, AST 61 H, ALT 60, Alkaline Phosphatase 80, Total Protein 7.7, Albumin 3.7, Globulin 4.0, Albumin/Globulin Ratio 0.9 Current Medications Acetaminophen (Acetaminophen 325 Mg Tablet) 650 mg PO Q6H PRN PRN PRN Reason: PAIN 1-10 Albuterol Sulfate (Albuterol 2.5 Mg/3 Ml Vial.Neb.) 2.5 mg INHALATION Q2H PRN PRN PRN Reason: Dyspnea, wheezing Folic Acid (Folic Acid 1 Mg Tablet) 1 mg PO DAILY@0800 [facility] Stop: 09/18/20 08:01 Last Admin: 09/16/20 18:25 Dose: 1 mg Documented by: Hydralazine HCl (Hydralazine 20 Mg/Ml Vial) 10 mg IV Q4H PRN PRN PRN Reason: SBP > 160 Sodium Chloride () 1,000 mls @ 100 mls/hr IV .Q10H [facility] Last Admin: 09/17/20 03:38 Dose: 100 mls/hr Documented by: Pantoprazole Sodium 40 mg/ (Sodium Chloride) 110 mls @ 330 mls/hr IV Q24 [facility] Lorazepam (Lorazepam 1 Mg Tablet) 2 mg PO Q2H PRN PRN; Protocol PRN Reason: CIWA score > 8 but <15 Lorazepam (Lorazepam 1 Mg Tablet) 2 mg PO UD PRN; Protocol PRN Reason: CIWA score >/=15. Lorazepam (Lorazepam 2 Mg/Ml Syringe) 2 mg IV Q2H PRN PRN; Protocol PRN Reason: CIWA score > 8 but <15 Lorazepam (Lorazepam 2 Mg/Ml Syringe) 2 mg IV UD PRN; Protocol PRN Reason: CIWA score >/=15. Morphine Sulfate (Morphine 2 Mg/Ml Syringe) 2 - 4 mg IV Q2H PRN PRN PRN Reason: PAIN 1-10 Multivitamins/Minerals (Multivitamins,Ther W-Minerals Tablet) 1 tablet PO DAILYCM [facility] Ondansetron HCl (Ondansetron 4 Mg/2 Ml Vial) 4 mg IV Q8H PRN PRN PRN Reason: NAUSEA Oxycodone HCl (Oxycodone 5 Mg Tablet) 5 - 10 mg PO Q4H PRN PRN PRN Reason: Pain Score 1-10 Sodium Chloride (0.9% Saline Lock 10 Ml Syringe) 10 - 40 ml IV UD PRN PRN Reason: SALINE FLUSH Thiamine HCl (Thiamine Hydrochloride 100 Mg Tablet) [facility] Stop: 09/19/20 08:01 Last Admin: 09/16/20 18:26 Dose: 100 mg Documented by: Medical Necessity - Tobacco Use Smoking Status: Former smoker Tobacco Use: Non-smoker, Cigarettes Assessment/Plan All Active Problems Seizure (Acute) Acute appendicitis (Acute) Sepsis (Acute) COPD with acute exacerbation (Acute) 50-year-old male postop day 1 status post laparoscopic appendectomy. 1. Patient is tolerating diet pain is controlled. Doing well from a surgical standpoint. 2. Appreciate medicine's assistance with patient's complaint of bilateral leg numbness. Erlinda Kim M.D. Pager: [phone] [facility] [address] [place] [address], [address] [place] [address] Office: [phone]
--- NOTE | 2020-09-17 07:47 | MRI_ITS ---
STUDY: MRI LUMBAR SPINE WITH AND WITHOUT CONTRAST REASON FOR EXAM: Male, 50 years old. sepsis; parasthesias TECHNIQUE: Standardized fat and water weighted pulse sequences were obtained in the sagittal and axial planes. 14ml IV Dotarem was administered for the contrast portion of the examination. COMPARISON: None FINDINGS: T12-L1: Normal endplates. Normal disc height, hydration and morphology. Normal bilateral facet joints. Normal central canal and bilateral lateral recesses. Normal bilateral intervertebral neural foramina. Normal lumbar lordosis. There is no substantial scoliosis. Normal conus medullaris that terminates at the L1-2: Normal endplates. Normal disc height, hydration and morphology. Normal bilateral facet joints. Normal central canal and bilateral lateral recesses. Normal bilateral intervertebral neural foramina. L2-3: Normal endplates. Normal disc height, hydration and morphology. Normal bilateral facet joints. Normal central canal and bilateral lateral recesses. Normal bilateral intervertebral neural foramina. L3-4: Normal endplates. Normal disc height, hydration and morphology. Normal bilateral facet joints. Normal central canal and bilateral lateral recesses. Normal bilateral intervertebral neural foramina. L4-5: Normal endplates. Normal disc height, hydration and morphology. Normal bilateral facet joints. Normal central canal and bilateral lateral recesses. Right greater than left narrowing bilateral intervertebral neural foramina. L5-S1: Normal endplates. Small broad-based posterior disc marginal osteophyte. Normal disc height, hydration and morphology. Normal bilateral facet joints. Normal central canal and bilateral lateral recesses. Narrowed left intervertebral neural foramina. Normal visualized sacral ala. Normal visualized paraspinous soft tissue structures. MRI/Spine Lumbar W/WO Contrast IMPRESSION: Moderate Narrowing L4-5 on the right and L5-S1 on the left. Electronically Signed: Niels Matos MD at 16:51 EST , Service support ,
--- NOTE | 2020-09-17 07:47 | MRI_ITS ---
STUDY: MRI CERVICAL SPINE WITH AND WITHOUT CONTRAST REASON FOR EXAM: Male, 50 years old. sepsis, parasthesias TECHNIQUE: Standardized fat and water weighted pulse sequences were obtained in the sagittal and axial following administration of IV Yes YES. COMPARISON: None FINDINGS: Normal foramen magnum and brainstem-cervical cord junction. Normal craniovertebral junction. Normal anterior atlantoaxial articulation. Normal odontoid process. Normal cervical lordosis. Normal vertebral bodies and posterior osseous elements. C2-3: Normal endplates. Normal disc height, signal and morphology. Normal central canal and intervertebral neural foramina. C3-4: Normal endplates. Normal disc height, signal and morphology. Normal central canal and narrowed left intervertebral neural foramina. C4-5: Normal endplates. Normal disc height, signal and morphology. Normal central canal and intervertebral neural foramina. C5-6: Small posterior disc marginal osteophyte uncinate spondylosis causing moderate narrowing of the neural foramina bilaterally. Central canal patent. C6-7: Normal endplates. Normal disc height, signal and morphology. Normal central canal and intervertebral neural foramina. C7-T1: Normal endplates. Normal disc height, signal and morphology. Normal central canal and intervertebral neural foramina. Normal cervical cord. Normal visualized soft tissue structures. MRI/Spine Cervical W/WO Contrast IMPRESSION: Neural foraminal narrowing at C5-6 otherwise no acute disease Electronically Signed: Niels Matos MD at 16:45 EST , Service support ,
--- NOTE | 2020-09-17 07:53 | PN_ITS ---
Patient Problems: Active and Suspected Problems Acute appendicitis (Acute) Sepsis (Acute) Reason for Visit: Status post appendectomy Subjective: Patient is a 50-year-old gentleman who presented with abdominal pain and assessment of Acute appendicitis with localized abscess patient underwent Laparoscopic appendectomy Dr. Kim on 09/16/2020. Hospitalist service was consulted to assist with management of patient medical comorbidities This morning patient is complaining of neck pain as well as bilateral lower extremity numbness with difficulty with ambulation Objective: GENERAL: cooperative HEENT: Atraumatic; EYES; Anicteric, Normal Conjunctiva NECK; supple, normal thyroid, RESPIRATORY: Diminished to auscultation CARDIOVASCULAR: Regular S1 S2, GI: soft, normoactive bowel sounds, : No Renal angle tenderness; EXTREMITIES: No edema, no clubbing, MUSCULOSKELETAL: no muscle waisting NEURO: Awake; no lateralizing signs. SKIN: No Rash PSYCH; Flat affect Vitals/I&O's: Vital Signs Temp Pulse Resp BP Pulse Ox 97.9 F 54 L 18 124/86 H 99 09/16/20 23:50 09/17/20 06:56 09/16/20 23:50 09/16/20 23:50 09/16/20 23:50 Oxygen Delivery Method Room Air Weight: 70.307 kg Body Mass Index (BMI) 20.9 Intake and Output for Last 24 Hours 09/15/20 09/16/20 09/17/20 23:59 23:59 23:59 Intake Total 2431.67 / 2431.67 935 / 935 Output Total 2525 / 2525 1575 / 1575 Balance -93.33 / -93.33 -640 / -640 Microbiology Past 72 Hours 09/16/20 14:13 Mucosa - Nose SARS-CoV-2 Antigen (Rapid) - Final Laboratory Results 09/16/20 11:40: Phosphorus 2.2 L, Iron 91, TIBC 249 L, Iron Saturation 36.5, Folate 10.30 09/16/20 11:41: WBC 8.7, RBC 3.61 L, Hgb 12.0 L, Hct 34.5 L, MCV 95.6 H, MCH 33.2 H, MCHC 34.8, RDW Std Deviation 51.8 H, RDW Coeff of José 14.8 H, Plt Count 79 L, MPV 10.5, Immature Gran % (Auto) 0.500, Neut % (Auto) 81.5 H, Lymph % (Auto) 11.7 L, [place] % (Auto) 5.7, Eos % (Auto) 0.1, Baso % (Auto) 0.5, Absolute Neuts (auto) 7.1, Absolute Lymphs (auto) 1.01, Nucleated RBC % 0 09/16/20 11:41: PT Cancelled, INR Cancelled 09/16/20 11:41: Sodium 127 L, Potassium 3.1 L, Chloride 88 L, Carbon Dioxide 23.0, Anion Gap 16 H, BUN 6 L, Creatinine 0.72, Estim Creat Clear Calc 117.81, Est GFR (MDRD) Af Amer 148, Est GFR (MDRD) Non-Af 122, BUN/Creatinine Ratio 8.4 L, Glucose 143 H, Calcium 8.4 L, Magnesium 1.7, Total Bilirubin 1.40 H, AST 70 H , ALT 64 H, Alkaline Phosphatase 91, Total Protein 7.7, Albumin 4.0, Globulin 3.7, Albumin/Globulin Ratio 1.1, Lipase 270 09/16/20 11:41: Hemoglobin A1c 5.1 09/16/20 11:41: Vitamin B12 691 09/16/20 11:55: PT 12.6, INR 1.0 09/17/20 05:16: WBC 7.7, RBC 3.75 L, Hgb 12.7 L, Hct 37.1 L, MCV 98.9 H, MCH 33.9 H, MCHC 34.2, RDW Std Deviation 56.1 H, RDW Coeff of José 15.4 H, Plt Count 65 L, MPV 11.3, Immature Gran % (Auto) 0.400, Neut % (Auto) 88.6 H, Lymph % (Auto) 6.2 L, [place] % (Auto) 4.7, Eos % (Auto) 0.0, Baso % (Auto) 0.1, Absolute Neuts (auto) 6.8, Absolute Lymphs (auto) 0.48 L, Nucleated RBC % 0 09/17/20 05:16: Sodium 135 L, Potassium 4.0, Chloride 101, Carbon Dioxide 28.0, Anion Gap 6, BUN 4 L, Creatinine 0.62 L, Estim Creat Clear Calc 138.60, Est GFR (MDRD) Af Amer 176, Est GFR (MDRD) Non-Af 146, BUN/Creatinine Ratio 6.5 L, Glucose 113 H, Calcium 8.4 L, Magnesium 1.8, Total Bilirubin 1.40 H, AST 61 H, ALT 60, Alkaline Phosphatase 80, Total Protein 7.7, Albumin 3.7, Globulin 4.0, Albumin/Globulin Ratio 0.9 Current Medications Acetaminophen (Acetaminophen 325 Mg Tablet) 650 mg PO Q6H PRN PRN PRN Reason: PAIN 1-10 Albuterol Sulfate (Albuterol 2.5 Mg/3 Ml Vial.Neb.) 2.5 mg INHALATION Q2H PRN PRN PRN Reason: Dyspnea, wheezing Folic Acid (Folic Acid 1 Mg Tablet) 1 mg PO DAILY@0800 [facility] Stop: 09/18/20 08:01 Last Admin: 09/16/20 18:25 Dose: 1 mg Documented by: Hydralazine HCl (Hydralazine 20 Mg/Ml Vial) 10 mg IV Q4H PRN PRN PRN Reason: SBP > 160 Sodium Chloride () 1,000 mls @ 100 mls/hr IV .Q10H [facility] Last Admin: 09/17/20 03:38 Dose: 100 mls/hr Documented by: Pantoprazole Sodium 40 mg/ (Sodium Chloride) 110 mls @ 330 mls/hr IV Q24 [facility] Iopamidol (Contrast Allergy Safety Check) 0 ml IV X1 [facility] Lorazepam (Lorazepam 1 Mg Tablet) 2 mg PO Q2H PRN PRN; Protocol PRN Reason: CIWA score > 8 but <15 Lorazepam (Lorazepam 1 Mg Tablet) 2 mg PO UD PRN; Protocol PRN Reason: CIWA score >/=15. Lorazepam (Lorazepam 2 Mg/Ml Syringe) 2 mg IV Q2H PRN PRN; Protocol PRN Reason: CIWA score > 8 but <15 Lorazepam (Lorazepam 2 Mg/Ml Syringe) 2 mg IV UD PRN; Protocol PRN Reason: CIWA score >/=15. Morphine Sulfate (Morphine 2 Mg/Ml Syringe) 2 - 4 mg IV Q2H PRN PRN PRN Reason: PAIN 1-10 Multivitamins/Minerals (Multivitamins,Ther W-Minerals Tablet) 1 tablet PO DAILYCM [facility] Ondansetron HCl (Ondansetron 4 Mg/2 Ml Vial) 4 mg IV Q8H PRN PRN PRN Reason: NAUSEA Oxycodone HCl (Oxycodone 5 Mg Tablet) 5 - 10 mg PO Q4H PRN PRN PRN Reason: Pain Score 1-10 Sodium Chloride (0.9% Saline Lock 10 Ml Syringe) 10 - 40 ml IV UD PRN PRN Reason: SALINE FLUSH Thiamine HCl ([facility] Hydrochloride 100 Mg Tablet) [facility] Stop: 09/19/20 08:01 Last Admin: 09/16/20 18:26 Dose: 100 mg Documented by: STROKE Vital Signs/Narrative: Vital Signs Pulse 09/17/20 06:56 54 L Medical Necessity - Tobacco Use Smoking Status: Former smoker Tobacco Use: Non-smoker, Cigarettes Assessment/Plan All Active Problems Seizure (Acute) Acute appendicitis (Acute) Sepsis (Acute) COPD with acute exacerbation (Acute) Patient is a 50-year-old gentleman who presented with abdominal pain and assessment of Acute appendicitis with localized abscess patient underwent Laparoscopic appendectomy Dr. Kim on 09/16/2020. Hospitalist service was consulted to assist with management of patient medical comorbidities 1. Acute appendicitis with localized abscess -patient underwent Laparoscopic appendectomy Dr. Kim on 09/16/2020 postoperative care including pain management deferred to primary service 2. Lower extremity weakness with paresthesias ?Requested for PT OT eval also ordered MRI of the lumbosacral spine with and without contrast 3. Weighted blood pressure ?Patient not a known hypertensive however blood pressure has remained significantly high since being admitted started on scheduled beta-blockers 4. Thrombocytopenia ?Attributed to patient history of chronic alcohol use 5. Hyponatremia ?Secondary to hypovolemic hyponatremia resolved with IV fluid resuscitation 6. Anemia - Secondary to chronic disorder monitoring H&H and transfuse if patient becomes symptomatic or hemoglobin falls below 7 7. Moderate protein calorie malnutrition -as evidenced by muscle wasting and relatively low BMI and decreased oral intake consultation placed to dietitian 8. Hypokalemia present on admission ?Corrected per protocol 9. Hypomagnesemia ?Corrected 10. DVT prophylaxis -did encourage early ambulation Inpatient E&M: [id number] [facility] L3
[2020-09-17] MEDS: Thiamine Hydrochloride 100 MG Tablet PO ×2 (08:24→16:16)
[2020-09-17] MEDS: Folic Acid 1 MG Tablet PO (08:24)
[2020-09-17] MEDS: Multivitamins,Ther W-Minerals Tablet 1 TABLET PO (08:24)
[2020-09-17] MEDS: Ondansetron 4 MG/2 ML Vial IV (08:42)
[2020-09-17] MEDS: Morphine 2 MG/ML Syringe IV (08:43)
--- NOTE | 2020-09-17 13:23 | NT.THERAPY_ITS ---
Nutrition Therapy Report - History Nutrition Services has been consulted to:: Manage nutrient details of diet order Current diet / nutrition support order:: regular - Anthropometric Measurements Height:: 6 ft Weight:: 70.307 kg Body Mass Index (BMI):: 20.9 - Relevant Labs Relevant Labs:: RBC 3.75 M/mm3 (4.6-6.2) L 09/17/20 05:16 Hgb 12.7 g/dL (13.0-16.5) L 09/17/20 05:16 Hct 37.1 % (40-54) L 09/17/20 05:16 MCV 98.9 fL (80-94) H 09/17/20 05:16 MCH 33.9 pg (27.0-32.0) H 09/17/20 05:16 RDW Std Deviation 56.1 fl (35.1-43.9) H 09/17/20 05:16 RDW Coeff of José 15.4 % (11.6-14.6) H 09/17/20 05:16 Plt Count 65 K/mm3 (150-450) L 09/17/20 05:16 Neut % (Auto) 88.6 % (47-70) H 09/17/20 05:16 Lymph % (Auto) 6.2 % (19-41) L 09/17/20 05:16 Absolute Lymphs (auto) 0.48 X10^3/uL (0.83-4.51) L 09/17/20 05:16 Sodium 135 mmol/L (136-145) L 09/17/20 05:16 Potassium 3.1 mmol/L (3.5-5.1) L 09/16/20 11:41 Chloride 88 mmol/L (98-107) L 09/16/20 11:41 Anion Gap 16 (5-15) H 09/16/20 11:41 BUN 4 mg/dL (7-18) L 09/17/20 05:16 Creatinine 0.62 mg/dL (0.70-1.30) L 09/17/20 05:16 BUN/Creatinine Ratio 6.5 RATIO (10-20) L 09/17/20 05:16 Glucose 113 mg/dL (74-106) H 09/17/20 05:16 Calcium 8.4 mg/dL (8.5-10.1) L 09/17/20 05:16 Phosphorus 2.2 mg/dL (2.5-4.9) L 09/16/20 11:40 TIBC 249 ug/dL (250-450) L 09/16/20 11:40 Total Bilirubin 1.40 mg/dL (0.20-1.00) H 09/17/20 05:16 AST 61 U/L (15-37) H 09/17/20 05:16 ALT 64 U/L (16-61) H 09/16/20 11:41 - Assessment Food / Nutrition-Related History:: Reports emesis after eating this AM. 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 Otherwise has good appetite/intake and normally eats 2 small meals/day. Denies wt changes, states UBW ~155-165# and CBW 155#. Per EMR, wt ~1 year ago was 146.7# suggesting wt gain. Hx of alcohol abuse, reports 6 months of sobriety. - Nutrition Diagnosis Problem / Etiology / Signs & Symptoms (PES):: moderate malnutrition in context of social/behavorial circumstances r/t inadequate protein/calorie intake with prior hx of alcohol abuse as evidenced by estimated PO intake meeting <75% of nutritional needs >1 year, NFPA suggesting a not well-developed gastrocnemius muscle, mild depression of inner thigh, slightly depressed interosseous muscle - Nutrition Intervention Nutrition Prescription:: 9064-5009 calories/day (1.3xRMR). 70-80 g protein/day (1g/kg). 2100mL fluid/day (30mL/kg) - Food / Nutrient Delivery Interventions Summary of nutrition intervention:: Discussed ONS w/ pt. He is agreeable to trying Ensure Clear. Pt is worried about continued emesis this date and doesn't want to over do it. Discussed need for adequate protein/calories s/p acute illness and for rebuilding strength. Pt w/ no questions at this time. Nutrition support ordered as / adjusted to:: Continue regular diet as tolerated; will add 120mL ensure clear w/ medpass for additional calories/protein if consumed. Nutrition education provided?: Yes - MNT Monitoring Further MNT monitoring and evaluation required?: Yes MNT Follow-up in:: 3-5 days
[2020-09-17] MEDS: Ensure Clear 120 ML Liquid PO ×2 (16:16→19:54)
[2020-09-18 02:06] VITALS: BP 130/88; PULSE 80; RESP 16; TEMP 36.6; O2SAT 100
[2020-09-18 03:55] VITALS: PULSE 60
[2020-09-18 05:02] LABS: Hematocrit 35.4 % (40-54); Hemoglobin 11.8 g/dL (13.0-16.5); Mean Corp Hgb Conc 33.3 g/dL (32-36); Mean Corpuscular Hgb 33.9 pg (27.0-32.0); Mean Corpuscular Volume 101.7 fL (80-94); POSITIVE COUNT YES; RBC Distribution Width CV 15.9 % (11.6-14.6); RBC Distribution Width SD 58.9 fl (35.1-43.9); Red Blood Count 3.48 M/mm3 (4.6-6.2); White Blood Count 5.2 K/mm3 (4.4-11.0)
[2020-09-18 05:09] LABS: Platelet Count 50 K/mm3 (150-450); Scan Indicated on CBC? Y/N YES- FLAGS NOTED
[2020-09-18 05:24] LABS: Anion Gap 4 (5-15); BUN 4 mg/dL (7-18); BUN/Creat Ratio 6.1 RATIO (10-20); Calcium,Total 8.6 mg/dL (8.5-10.1); Chloride 104 mmol/L (98-107); Creatinine, Serum 0.65 mg/dL (0.70-1.30); EST Glomerular Filtration Rate 137 mL/min (>60); Est Glom Filt Rate - Afr Amer 165 mL/min (>60); Glucose 96 mg/dL (74-106); Magnesium 1.9 mg/dL (1.6-2.6); Potassium 3.4 mmol/L (3.5-5.1); Sodium Level 137 mmol/L (136-145)
[2020-09-18 07:00] VITALS: PULSE 63
[2020-09-18 07:35] VITALS: O2SAT 99
[2020-09-18] MEDS: Thiamine Hydrochloride 100 MG Tablet PO (08:56)
[2020-09-18] MEDS: Potassium Chloride Oral Tablet 20 MEQ 40 MEQ PO (08:56)
[2020-09-18] MEDS: Multivitamins,Ther W-Minerals Tablet 1 TABLET PO (08:56)
[2020-09-18] MEDS: Folic Acid 1 MG Tablet PO (08:57)
[2020-09-18] MEDS: 0.9% Saline Lock 10 ML Syringe IV (09:08)
[2020-09-18 09:09] VITALS: BP 145/88; PULSE 68; RESP 18; TEMP 36.8; O2SAT 100
--- NOTE | 2020-09-18 09:14 | PCM.PROGNOTE ---
<Yudith Little [employer] WE[employer]ING TOOL OPERATOR - Last Filed: 09/18/20 09:30> Patient Problems: Active and Suspected Problems Acute appendicitis (Acute) Sepsis (Acute) Subjective: Patient seen and examined. Denies significant pain. Ambulated with therapy greater than 400 feet yesterday without difficulty. Stable for discharge home from a medical standpoint. Will give Rx for walker at discharge. - Physical Exam Vitals/I&O's: Vital Signs Temp Pulse Resp BP Pulse Ox 98.3 F 68 18 145/88 H 100 09/18/20 09:09 09/18/20 09:09 09/18/20 09:09 09/18/20 09:09 09/18/20 09:09 Oxygen Delivery Method Room Air Weight: 155 lb 0.006 oz Body Mass Index (BMI) 20.9 Intake and Output for Last 24 Hours 09/16/20 09/17/20 09/18/20 23:59 23:59 23:59 Intake Total 2431.67 / 2431.67 3245 / 3245 863.33 / 863.33 Output Total 2525 / 2525 2875 / 2875 Balance -93.33 / -93.33 370 / 370 863.33 / 863.33 General: Alert, Oriented x3, Cooperative HEENT: Atraumatic, PERRLA, EOMI, Normocephalic Neck: Supple, No JVD, Negative Carotid Bruits Lungs: Clear to auscultation, Normal air movement Cardiovascular: Regular rate, No murmurs Abdomen: Bowel Sounds Present, Soft, Non Tender, Non-Distended Extremities: No edema, Capillary Refill Less than 3 Seconds Skin: - - Abdominal postop dressing intact Musculoskeletal: No Tenderness to Palpation of Joints or Extremities Neurological: Cranial nerves II-XII grossly intact, Neuro grossly intact Psych/Mental Status: Normal Affect, Appropriate Microbiology Past 72 Hours 09/16/20 14:13 Mucosa - Nose SARS-CoV-2 Antigen (Rapid) - Final Laboratory Results 09/18/20 04:48: WBC 5.2, RBC 3.48 L, Hgb 11.8 L, Hct 35.4 L, MCV 101.7 H, MCH 33.9 H, MCHC 33.3, RDW Std Deviation 58.9 H, RDW Coeff of José 15.9 H, Plt Count 50 L*, MPV 11.0, Diff Path Review May foll 03/12/21 04:48: Sodium 137, Potassium 3.4 L, Chloride 104, Carbon Dioxide 29.0, Anion Gap 4 L, BUN 4 L, Creatinine 0.65 L, Estim Creat Clear Calc 132.20, Est GFR (MDRD) Af Amer 165, Est GFR (MDRD) Non-Af 137, BUN/Creatinine Ratio 6.1 L, Glucose 96, Calcium 8.6, Magnesium 1.9 Current Medications Acetaminophen (Acetaminophen 325 Mg Tablet) 650 mg PO Q6H PRN PRN PRN Reason: PAIN 1-10 Albuterol Sulfate (Albuterol 2.5 Mg/3 Ml Vial.Neb.) 2.5 mg INHALATION Q2H PRN PRN PRN Reason: Dyspnea, wheezing Hydralazine HCl (Hydralazine 20 Mg/Ml Vial) 10 mg IV Q4H PRN PRN PRN Reason: SBP > 160 Sodium Chloride () 1,000 mls @ 100 mls/hr IV .Q10H [facility] Last Admin: 09/18/20 06:02 Dose: Not Given Documented by: Pantoprazole Sodium 40 mg/ (Sodium Chloride) 110 mls @ 330 mls/hr IV Q24 [facility] Last Admin: 09/18/20 09:08 Dose: 330 mls/hr Documented by: Lorazepam (Lorazepam 1 Mg Tablet) 2 mg PO Q2H PRN PRN; Protocol PRN Reason: CIWA score > 8 but <15 Lorazepam (Lorazepam 1 Mg Tablet) 2 mg PO UD PRN; Protocol PRN Reason: CIWA score >/=15. Lorazepam (Lorazepam 2 Mg/Ml Syringe) 2 mg IV Q2H PRN PRN; Protocol PRN Reason: CIWA score > 8 but <15 Lorazepam (Lorazepam 2 Mg/Ml Syringe) 2 mg IV UD PRN; Protocol PRN Reason: CIWA score >/=15. Morphine Sulfate (Morphine 2 Mg/Ml Syringe) 2 - 4 mg IV Q2H PRN PRN PRN Reason: PAIN 1-10 Last Admin: 09/17/20 08:43 Dose: 2 mg Documented by: Multivitamins/Minerals (Multivitamins,Ther W-Minerals Tablet) [facility] Last Admin: 09/18/20 08:56 Dose: 1 tablet Documented by: Nutritional Formula (Lactose Free) (Ensure Clear 120 Ml Liquid) 120 ml PO 4X/DAY [facility] Last Admin: 09/18/20 08:57 Dose: Not Given Documented by: Ondansetron HCl (Ondansetron 4 Mg/2 Ml Vial) 4 mg IV Q8H PRN PRN PRN Reason: NAUSEA Last Admin: 09/17/20 08:42 Dose: 4 mg Documented by: Oxycodone HCl (Oxycodone 5 Mg Tablet) 5 - 10 mg PO Q4H PRN PRN PRN Reason: Pain Score 1-10 Sodium Chloride (0.9% Saline Lock 10 Ml Syringe) 10 - 40 ml IV UD PRN PRN Reason: SALINE FLUSH Last Admin: 09/18/20 09:08 Dose: 10 ml Documented by: Thiamine HCl (Thiamine Hydrochloride 100 Mg Tablet) 100 mg PO BIDCM [facility] Stop: 09/19/20 08:01 Last Admin: 09/18/20 08:56 Dose: 100 mg Documented by: Medical Necessity - Tobacco Use Smoking Status: Former smoker Tobacco Use: Non-smoker, Cigarettes Assessment/Plan All Active Problems Seizure (Acute) Acute appendicitis (Acute) Sepsis (Acute) COPD with acute exacerbation (Acute) 1. Acute appendicitis with localized abscess status post laparoscopic appendectomy 09/16/2020-management per surgery. Denies significant pain. 2. Chronic debility-patient complains of lower extremity weakness with paresthesias. MRI of the lumbar spine shows moderate narrowing L4-L5 on the right and L5-S1 on the left. Cervical spine MRI shows neuroforaminal narrowing at C5-C6. PT/OT consulted during admission. Patient ambulated greater than 400 feet with physical therapy and no further therapy was recommended at discharge. Wheeled walker recommended and prescription will be given at discharge. Follow-up with PCP for chronic pain, referral to ortho if necessary on an outpatient basis. 3. Elevated blood pressure without history of hypertension-we will begin low-dose lisinopril 5 mg daily with further outpatient monitoring and medication adjustment. 4. Chronic alcohol dependence-encouraged cessation. Lives with his mother and she requested psychiatric consult because patient will not move out. Recommend outpatient follow-up/referral. 5. Thrombocytopenia-suspect secondary to #4. 6. Hyponatremia-suspect secondary to #4. Resolved. 7. Chronic macrocytic anemia-mild, stable. 8. Hypokalemia/hypomagnesia-replace per protocol. 9. Moderate protein calorie malnutrition-dietitian consult during admission. DVT prophylaxis-SCDs Discharge planning: Stable for discharge from a medical standpoint. Discharged with Rx for walker and lisinopril added for blood pressure management. This patient was seen by Yudith Little NP-C under the supervision of Dr. De. <Dwayne De - Last Filed: 09/18/20 12:23> - Physical Exam Vitals/I&O's: Vital Signs Temp Pulse Resp BP Pulse Ox 98.3 F 68 18 145/88 H 100 09/18/20 09:09 09/18/20 09:09 09/18/20 09:09 09/18/20 09:09 09/18/20 09:09 Oxygen Delivery Method Room Air Weight: 70.307 kg Body Mass Index (BMI) 20.9 Intake and Output for Last 24 Hours 09/16/20 09/17/20 09/18/20 23:59 23:59 23:59 Intake Total 2431.67 / 2431.67 3245 / 3245 973.33 / 973.33 Output Total 2525 / 2525 2875 / 2875 Balance -93.33 / -93.33 370 / 370 973.33 / 973.33 Microbiology Past 72 Hours 09/16/20 14:13 Mucosa - Nose SARS-CoV-2 Antigen (Rapid) - Final Laboratory Results 09/18/20 04:48: WBC 5.2, RBC 3.48 L, Hgb 11.8 L, Hct 35.4 L, MCV 101.7 H, MCH 33.9 H, MCHC 33.3, RDW Std Deviation 58.9 H, RDW Coeff of José 15.9 H, Plt Count 50 L*, MPV 11.0, Diff Path Review Reviewed 09/18/20 04:48: Sodium 137, Potassium 3.4 L, Chloride 104, Carbon Dioxide 29.0, Anion Gap 4 L, BUN 4 L, Creatinine 0.65 L, Estim Creat Clear Calc 132.20, Est GFR (MDRD) Af Amer 165, Est GFR (MDRD) Non-Af 137, BUN/Creatinine Ratio 6.1 L, Glucose 96, Calcium 8.6, Magnesium 1.9 Current Medications Acetaminophen (Acetaminophen 325 Mg Tablet) 650 mg PO Q6H PRN PRN PRN Reason: PAIN 1-10 Albuterol Sulfate (Albuterol 2.5 Mg/3 Ml Vial.Neb.) 2.5 mg INHALATION Q2H PRN PRN PRN Reason: Dyspnea, wheezing Hydralazine HCl (Hydralazine 20 Mg/Ml Vial) 10 mg IV Q4H PRN PRN PRN Reason: SBP > 160 Sodium Chloride () 1,000 mls @ 100 mls/hr IV .Q10H [facility] Last Admin: 09/18/20 06:02 Dose: Not Given Documented by: Pantoprazole Sodium 40 mg/ (Sodium Chloride) 110 mls @ 330 mls/hr IV Q24 [facility] Last Infusion: 09/18/20 09:38 Dose: Infused Documented by: Lorazepam (Lorazepam 1 Mg Tablet) 2 mg PO Q2H PRN PRN; Protocol PRN Reason: CIWA score > 8 but <15 Lorazepam (Lorazepam 1 Mg Tablet) 2 mg PO UD PRN; Protocol PRN Reason: CIWA score >/=15. Lorazepam (Lorazepam 2 Mg/Ml Syringe) 2 mg IV Q2H PRN PRN; Protocol PRN Reason: CIWA score > 8 but <15 Lorazepam (Lorazepam 2 Mg/Ml Syringe) 2 mg IV UD PRN; Protocol PRN Reason: CIWA score >/=15. Morphine Sulfate (Morphine 2 Mg/Ml Syringe) 2 - 4 mg IV Q2H PRN PRN PRN Reason: PAIN 1-10 Last Admin: 09/17/20 08:43 Dose: 2 mg Documented by: Multivitamins/Minerals (Multivitamins,Ther W-Minerals Tablet) [facility] Last Admin: 09/18/20 08:56 Dose: 1 tablet Documented by: Nutritional Formula (Lactose Free) (Ensure Clear 120 Ml Liquid) 120 ml PO 4X/DAY [facility] Last Admin: 09/18/20 08:57 Dose: Not Given Documented by: Ondansetron HCl (Ondansetron 4 Mg/2 Ml Vial) 4 mg IV Q8H PRN PRN PRN Reason: NAUSEA Last Admin: 09/17/20 08:42 Dose: 4 mg Documented by: Oxycodone HCl (Oxycodone 5 Mg Tablet) 5 - 10 mg PO Q4H PRN PRN PRN Reason: Pain Score 1-10 Sodium Chloride (0.9% Saline Lock 10 Ml Syringe) 10 - 40 ml IV UD PRN PRN Reason: SALINE FLUSH Last Admin: 09/18/20 09:08 Dose: 10 ml Documented by: Thiamine HCl (Thiamine Hydrochloride 100 Mg Tablet) 100 mg PO BIDCM [facility] Stop: 09/19/20 08:01 Last Admin: 09/18/20 08:56 Dose: 100 mg Documented by: Assessment/Plan This patient was seen in conjunction with JO Nicholson . I have independently interviewed and examined the patient and reviewed pertinent historical, laboratory, and other data. Please refer to JO Nicholson note for details of this patient's presentation, findings, and recommendations. I have reviewed JO Nicholson note and concur with documented findings. Patient is a 50-year-old gentleman who presented with abdominal pain and assessment of Acute appendicitis with localized abscess patient underwent Laparoscopic appendectomy Dr. Kim on 09/16/2020. Hospitalist service was consulted to assist with management of patient medical comorbidities Assessment and plan; as documented above Inpatient E&M: 52534 Subs Hosp L2
--- NOTE | 2020-09-18 10:04 | PCM.PN.SRG ---
Patient Problems: Active and Suspected Problems Acute appendicitis (Acute) Sepsis (Acute) Subjective: Patient is tolerating diet states his numbness and tingling in his lower extremities have improved. MRI of cervical and lumbar spine did show some moderate stenosis at various levels. Patient only states minimal abdominal soreness at incisions - Physical Exam Vitals/I&O's: Vital Signs Temp Pulse Resp BP Pulse Ox 98.3 F 68 18 145/88 H 100 09/18/20 09:09 09/18/20 09:09 09/18/20 09:09 09/18/20 09:09 09/18/20 09:09 Oxygen Delivery Method Room Air Weight: 155 lb 0.006 oz Body Mass Index (BMI) 20.9 Intake and Output for Last 24 Hours 09/16/20 09/17/20 09/18/20 23:59 23:59 23:59 Intake Total 2431.67 / 2431.67 3245 / 3245 973.33 / 973.33 Output Total 2525 / 2525 2875 / 2875 Balance -93.33 / -93.33 370 / 370 973.33 / 973.33 General: Alert, Oriented x3, Cooperative, No apparent distress HEENT: Atraumatic Lungs: Normal air movement Cardiovascular: Regular rate Abdomen: Soft, Non Tender, Non-Distended Extremities: No edema Microbiology Past 72 Hours 09/16/20 14:13 Mucosa - Nose SARS-CoV-2 Antigen (Rapid) - Final Laboratory Results 09/18/20 04:48: WBC 5.2, RBC 3.48 L, Hgb 11.8 L, Hct 35.4 L, MCV 101.7 H, MCH 33.9 H, MCHC 33.3, RDW Std Deviation 58.9 H, RDW Coeff of José 15.9 H, Plt Count 50 L*, MPV 11.0, Diff Path Review November09/18/20 04:48: Sodium 137, Potassium 3.4 L, Chloride 104, Carbon Dioxide 29.0, Anion Gap 4 L, BUN 4 L, Creatinine 0.65 L, Estim Creat Clear Calc 132.20, Est GFR (MDRD) Af Amer 165, Est GFR (MDRD) Non-Af 137, BUN/Creatinine Ratio 6.1 L, Glucose 96, Calcium 8.6, Magnesium 1.9 Current Medications Acetaminophen (Acetaminophen 325 Mg Tablet) 650 mg PO Q6H PRN PRN PRN Reason: PAIN 1-10 Albuterol Sulfate (Albuterol 2.5 Mg/3 Ml Vial.Neb.) 2.5 mg INHALATION Q2H PRN PRN PRN Reason: Dyspnea, wheezing Hydralazine HCl (Hydralazine 20 Mg/Ml Vial) 10 mg IV Q4H PRN PRN PRN Reason: SBP > 160 Sodium Chloride () 1,000 mls @ 100 mls/hr IV .Q10H [facility] Last Admin: 09/18/20 06:02 Dose: Not Given Documented by: Pantoprazole Sodium 40 mg/ (Sodium Chloride) 110 mls @ 330 mls/hr IV Q24 [facility] Last Infusion: 09/18/20 09:38 Dose: Infused Documented by: Lorazepam (Lorazepam 1 Mg Tablet) 2 mg PO Q2H PRN PRN; Protocol PRN Reason: CIWA score > 8 but <15 Lorazepam (Lorazepam 1 Mg Tablet) 2 mg PO UD PRN; Protocol PRN Reason: CIWA score >/=15. Lorazepam (Lorazepam 2 Mg/Ml Syringe) 2 mg IV Q2H PRN PRN; Protocol PRN Reason: CIWA score > 8 but <15 Lorazepam (Lorazepam 2 Mg/Ml Syringe) 2 mg IV UD PRN; Protocol PRN Reason: CIWA score >/=15. Morphine Sulfate (Morphine 2 Mg/Ml Syringe) 2 - 4 mg IV Q2H PRN PRN PRN Reason: PAIN 1-10 Last Admin: 09/17/20 08:43 Dose: 2 mg Documented by: Multivitamins/Minerals (Multivitamins,Ther W-Minerals Tablet) [facility] Last Admin: 09/18/20 08:56 Dose: 1 tablet Documented by: Nutritional Formula (Lactose Free) (Ensure Clear 120 Ml Liquid) 120 ml PO 4X/DAY [facility] Last Admin: 09/18/20 08:57 Dose: Not Given Documented by: Ondansetron HCl (Ondansetron 4 Mg/2 Ml Vial) 4 mg IV Q8H PRN PRN PRN Reason: NAUSEA Last Admin: 09/17/20 08:42 Dose: 4 mg Documented by: Oxycodone HCl (Oxycodone 5 Mg Tablet) 5 - 10 mg PO Q4H PRN PRN PRN Reason: Pain Score 1-10 Sodium Chloride (0.9% Saline Lock 10 Ml Syringe) 10 - 40 ml IV UD PRN PRN Reason: SALINE FLUSH Last Admin: 09/18/20 09:08 Dose: 10 ml Documented by: Thiamine HCl (Thiamine Hydrochloride 100 Mg Tablet) 100 mg PO BIDCM NOHEMI Stop: 09/19/20 08:01 Last Admin: 09/18/20 08:56 Dose: 100 mg Documented by: Medical Necessity - Tobacco Use Smoking Status: Former smoker Tobacco Use: Non-smoker, Cigarettes Assessment/Plan All Active Problems Seizure (Acute) Acute appendicitis (Acute) Sepsis (Acute) COPD with acute exacerbation (Acute) 50-year-old male postop day 2 status post laparoscopic appendectomy.Bilateral lower extremity numbness?resolved 1. Patient is tolerating diet pain is controlled. Doing well from a surgical standpoint.Okay to [place] home 2. MRI showed some moderate stenosis we will plan for follow-up with PCP. Erlinda Kim M.D. Pager: [phone] [facility] [address] [place] [address], [address] [place] [address] Office: [phone]
--- NOTE | 2020-09-18 10:06 | DCINST_ITS ---
Discharge Diet: Light diet - advance as tolerated Discharge Activity: No Restrictions Lifting Restrictions: No lifting greater than 20 pounds x 2wks, no strenuous exercise for 4 weeks Additional Activity Instructions:: PT did recommend a walker patient does have a walker at home did not recommend additional therapy. Call your doctor if your incision/area has: Continuous Slow Oozing, Sudden Increased Bleeding, Increased Pain/ Swelling, Increased Redness, Foul Smelling Discharge, Swelling at the incision site Call your doctor if you observe: Fever of 101 or Higher Allergies/Adverse Reactions: Allergies No Known Allergies Allergy (Verified 09/16/20 11:38) Medications to take at Discharge Lisinopril 5 mg PO DAILY #30 tab 09/18/20 The following prescriptions were given: Lisinopril 5 mg PO DAILY #30 tab Transmission Status: Received by [facility] Primary Care Physician: Care Physician,No Primary [Primary Care Provider] - Please follow up with your Primary Care Physician in: Please choose a PCP and follow-up in 1 week Test Results: Test results from this visit will be discussed in further detail at your follow- up appointment, if applicable. Please Follow Up With: Erlinda Kim MD - After 5 PM and on the weekends call [phone] with any concerns. When: Call the office for a follow-up appointment in 2 weeks. Proposed Discharge Date: 09/18/20
--- NOTE | 2020-09-18 10:50 | CASEMGMT ---
Therapy recommended a WW at home and no further therapy. Pt states he has a WW at home. No further needs.
--- NOTE | 2020-09-18 10:53 | PHA.DC.MC ---
Pharmacy Service has performed discharge medication reconciliation and counseling for this patient. 1. LISINOPRIL 5MG PO DAILY The patient's discharge medication list was reviewed for discrepancies and discrepancies were resolved. Home Medications Lisinopril 5 mg PO DAILY #30 tab 09/18/20 The patient was counseled on the following discharge medications and changes in medications for homegoing were reviewed. The Reason for Use, instructions for use, and potential side effects were reviewed for all new medications. The patient's questions regarding all of their medications were answered. The patient was able to verbally demonstrate an understanding of their discharge medications.
--- NOTE | 2020-09-18 11:02 | DS.PCM_ITS ---
Discharge Date and Diagnosis - Problem List Patient Problems: Active and Suspected Problems Acute appendicitis (Acute) Sepsis (Acute) Date of Admission: 09/16/20 Date of Discharge: 09/18/20 - Primary Discharge Diagnosis Acute Problems: Active Problems Acute appendicitis (Acute) Sepsis (Acute) bilateral lower extremity numbness (resolved) - Secondary Discharge Diagnosis Chronic Problems: Chronic Problems Transaminitis (Chronic) Thrombocytopenia (Chronic) Chronic anemia (Chronic) History of alcohol abuse (Chronic) Moderate protein-calorie malnutrition (Chronic) Former tobacco use (Chronic) Alcohol abuse (Chronic) Hypokalemia (Chronic) Hyponatremia (Chronic) Hospital Course and Treatment Imaging Results: Clinical Impression(s) from Imaging Studies Abdomen/Pelvis CT 09/16/20 11:43 IMPRESSION: Possible early acute appendicitis. Electronically Signed: Vern Mcgill MD at 13:43 EST Tel , Service support , Chest X-Ray 09/16/20 14:00 IMPRESSION: Degenerative changes, as described above. No demonstrated acute cardiopulmonary process. Electronically Signed: Vern Mcgill MD at 15:08 EST Tel , Service support , Cervical Spine MRI 09/17/20 07:47 IMPRESSION: Neural foraminal narrowing at C5-6 otherwise no acute disease Electronically Signed: Niels Matos MD at 16:45 EST , Service support , Lumbar Spine MRI 09/17/20 07:47 IMPRESSION: Moderate Narrowing L4-5 on the right and L5-S1 on the left. Electronically Signed: Niels Matos MD at 16:51 EST , Service support , Hospitalist for medical management Operations: appendectomy Procedures: None Summary of Care Provided: The patient is a 50 year old M admitted due to abdominal pain CT abdomen pelvis was consistent with acute appendicitis. Patient underwent laparoscopic appendectomy on 09/16/2020. Postop the patient denied any further abdominal pains then mild at incision and was able to tolerated diet. However he did complain of bilateral lower extremity numbness states that the reason why he could not walk. Patient did have PT and OT ordered did recommend a walker but no further therapy. Patient states that yesterday night the bilateral lower extremity numbness resolved. Patient did get a CT abdomen pelvis patient did get MRI of the cervical and lumbar spine which showed some moderate stenosis please see report. We will asked patient to follow-up with PCP of his choosing in 1 week. Hospice was consulted to help with management of the bilateral lower extremity numbness and also put him on lisinopril 5 mg p.o. daily. Patient Problems: Active and Suspected Problems Acute appendicitis (Acute) Sepsis (Acute) - Physical Exam Vitals/I&O's: Vital Signs Temp Pulse Resp BP Pulse Ox 98.3 F 68 18 145/88 H 100 09/18/20 09:09 09/18/20 09:09 09/18/20 09:09 09/18/20 09:09 09/18/20 09:09 Oxygen Delivery Method Room Air Weight: 155 lb 0.006 oz Body Mass Index (BMI) 20.9 Intake and Output for Last 24 Hours 09/16/20 09/17/20 09/18/20 23:59 23:59 23:59 Intake Total 2431.67 / 2431.67 3245 / 3245 973.33 / 973.33 Output Total 2525 / 2525 2875 / 2875 Balance -93.33 / -93.33 370 / 370 973.33 / 973.33 General: Alert, Oriented x3, Cooperative, No apparent distress HEENT: Atraumatic Lungs: Normal air movement Cardiovascular: Regular rate Abdomen: Soft, Non-Distended, Tender - incision c/d/i, no PS Extremities: No edema Neurological: Neuro grossly intact Psych/Mental Status: Normal Affect Microbiology Past 72 Hours 09/16/20 14:13 Mucosa - Nose SARS-CoV-2 Antigen (Rapid) - Final Laboratory Results 09/18/20 04:48: WBC 5.2, RBC 3.48 L, Hgb 11.8 L, Hct 35.4 L, MCV 101.7 H, MCH 33.9 H, MCHC 33.3, RDW Std Deviation 58.9 H, RDW Coeff of José 15.9 H, Plt Count 50 L*, MPV 11.0, Diff Path Review November09/18/20 04:48: Sodium 137, Potassium 3.4 L, Chloride 104, Carbon Dioxide 29.0, Anion Gap 4 L, BUN 4 L, Creatinine 0.65 L, Estim Creat Clear Calc 132.20, Est GFR (MDRD) Af Amer 165, Est GFR (MDRD) Non-Af 137, BUN/Creatinine Ratio 6.1 L, Glucose 96, Calcium 8.6, Magnesium 1.9 Current Medications Acetaminophen (Acetaminophen 325 Mg Tablet) 650 mg PO Q6H PRN PRN PRN Reason: PAIN 1-10 Albuterol Sulfate (Albuterol 2.5 Mg/3 Ml Vial.Neb.) 2.5 mg INHALATION Q2H PRN PRN PRN Reason: Dyspnea, wheezing Hydralazine HCl (Hydralazine 20 Mg/Ml Vial) 10 mg IV Q4H PRN PRN PRN Reason: SBP > 160 Sodium Chloride () 1,000 mls @ 100 mls/hr IV .Q10H [facility] Last Admin: 09/18/20 06:02 Dose: Not Given Documented by: Pantoprazole Sodium 40 mg/ (Sodium Chloride) 110 mls @ 330 mls/hr IV Q24 [facility] Last Infusion: 09/18/20 09:38 Dose: Infused Documented by: Lorazepam (Lorazepam 1 Mg Tablet) 2 mg PO Q2H PRN PRN; Protocol PRN Reason: CIWA score > 8 but <15 Lorazepam (Lorazepam 1 Mg Tablet) 2 mg PO UD PRN; Protocol PRN Reason: CIWA score >/=15. Lorazepam (Lorazepam 2 Mg/Ml Syringe) 2 mg IV Q2H PRN PRN; Protocol PRN Reason: CIWA score > 8 but <15 Lorazepam (Lorazepam 2 Mg/Ml Syringe) 2 mg IV UD PRN; Protocol PRN Reason: CIWA score >/=15. Morphine Sulfate (Morphine 2 Mg/Ml Syringe) 2 - 4 mg IV Q2H PRN PRN PRN Reason: PAIN 1-10 Last Admin: 09/17/20 08:43 Dose: 2 mg Documented by: Multivitamins/Minerals (Multivitamins,Ther W-Minerals Tablet) [facility] Last Admin: 09/18/20 08:56 Dose: 1 tablet Documented by: Nutritional Formula (Lactose Free) (Ensure Clear 120 Ml Liquid) 120 ml PO 4X/DAY [facility] Last Admin: 09/18/20 08:57 Dose: Not Given Documented by: Ondansetron HCl (Ondansetron 4 Mg/2 Ml Vial) 4 mg IV Q8H PRN PRN PRN Reason: NAUSEA Last Admin: 09/17/20 08:42 Dose: 4 mg Documented by: Oxycodone HCl (Oxycodone 5 Mg Tablet) 5 - 10 mg PO Q4H PRN PRN PRN Reason: Pain Score 1-10 Sodium Chloride (0.9% Saline Lock 10 Ml Syringe) 10 - 40 ml IV UD PRN PRN Reason: SALINE FLUSH Last Admin: 09/18/20 09:08 Dose: 10 ml Documented by: Thiamine HCl (Thiamine Hydrochloride 100 Mg Tablet) [facility] Stop: 09/19/20 08:01 Last Admin: 09/18/20 08:56 Dose: 100 mg Documented by: Discharge Diet: Light diet - advance as tolerated Discharge Activity: No Restrictions Additional Activity Instructions:: PT did recommend a walker patient does have a walker at home did not recommend additional therapy. Call your doctor if your incision/area has: Continuous Slow Oozing, Sudden Increased Bleeding, Increased Pain/ Swelling, Increased Redness, Foul Smelling Discharge, Swelling at the incision site Call your doctor if you observe: Fever of 101 or Higher Home Medications: Medications to take at Discharge Lisinopril 5 mg PO DAILY #30 tab 09/18/20 Following Prescriptions Were Given to Patient: Lisinopril 5 mg PO DAILY #30 tab Transmission Status: Received by [facility] Primary Care Physician: Care Physician,No Primary [Primary Care Provider] - Please follow up with your Primary Care Physician in: Please choose a PCP and follow-up in 1 week Please Follow Up With: Erlinda Kim MD - After 5 PM and on the weekends call [phone] with any concerns. When: Call the office for a follow-up appointment in 2 weeks. Disposition: Home Minutes spent on discharge:: 15 Patient Condition:: Stable Medical Necessity - Tobacco Use Smoking Status: Former smoker Tobacco Use: Non-smoker, Cigarettes Meaningful Use Info Meaningful Use Diagnoses (Choose all that apply): None applicable
[2020-09-18 11:39] LABS: Pathologist Review Reviewed
== END 2020-09-18 10:07 | disposition home or self-care (01) ==
LOC: ED 14:10 → SDC 14:14 → PCU 14:15 → SDC 09-17 08:40 → PCU 09-17 08:40
PROVIDERS: Family Medicine; Surgery; Admitting Provider Internal Medicine; Emergency Provider Emergency Medicine; Visit Provider Internal Medicine
PROC: 0DTJ4ZZ Resection of Appendix, Percutaneous Endoscopic Approach (ICD-10-PCS; CPT 44970; principal; 2020-09-16 14:30)
DX: A41.9 Sepsis, unspecified organism (principal); R20.0 Anesthesia of skin; K35.21 Acute appendicitis with generalized peritonitis, with abscess; K70.9 Alcoholic liver disease, unspecified; E87.6 Hypokalemia; E87.1 Hypo-osmolality and hyponatremia; J44.9 Chronic obstructive pulmonary disease, unspecified; Z68.20 Body mass index [BMI] 20.0-20.9, adult; I10 Essential (primary) hypertension; E44.0 Moderate protein-calorie malnutrition; D69.6 Thrombocytopenia, unspecified; D53.9 Nutritional anemia, unspecified; R73.9 Hyperglycemia, unspecified; F10.21 Alcohol dependence, in remission; I73.9 Peripheral vascular disease, unspecified; Z87.891 Personal history of nicotine dependence; Z82.49 Family history of ischemic heart disease and other diseases of the circulatory system
CPT/HCPCS: 44970; 71045; 72156; 72158; 74177; 80048; 80053; 82607; 82746; 83036; 83540; 83550; 83690; 83735; 84100; 85025; 85027; 85610; 87426; 88304; 93005; 96361; 96365; 96366; 96367; 96375; 96376; 97110; 97162; 97166; 97530; 97535; 97802; 99218; 99251; 99285; 99406; A9575; J7030; Q9967; A4216; C1760; G0378; G0463; J2405; J3490

== ENCOUNTER 2021-07-16 16:34 | Emergency (ER) | payer MEDICAID, SELFPAY ==
[2021-07-16 16:35] VITALS: BP 192/121; PULSE 116; RESP 16; TEMP 36; O2SAT 99; BMI 21.7
--- NOTE | 2021-07-16 17:14 | EKG12_ITS ---
Test Reason : SOB Blood Pressure : / mmHG Vent. Rate : 085 BPM Atrial Rate : 085 BPM P-R Int : 160 ms QRS Dur : 096 ms QT Int : 364 ms P-R-T Axes : 082 086 070 degrees QTc Int : 433 ms Normal sinus rhythm Normal ECG Confirmed by ZULMA RUBIO, ADE ([id number]), photographic editor ROD GALVEZ ([id number]) on 07/21/2021 11:20:20 AM Referred By: DO Confirmed By:ADE MAYA MD
[2021-07-16 17:54] LABS: Absolute Lymphocyte Count 0.72 X10^3/uL (0.83-4.51); Absolute Neutrophil Count 4.3 X10^3/uL (2.0-7.7); Basophil# 0.04 X10^3/uL; Basophil% 0.7 % (0-1); Eosinophil# 0.14 X10^3/uL; Eosinophils% 2.5 % (0-5); Lymphocyte # 0.72 X10^3/ul (0.83-4.51); Lymphocyte % 12.7 % (19-41); Mean Corp Hgb Conc 35.1 g/dL (32-36); Mean Corpuscular Hgb 33.2 pg (27.0-32.0); Mean Corpuscular Volume 94.4 fL (80-94); Mean Platelet Vol. 11.3 fl (6.2-12.0); Monocyte# 0.41 X10^3/uL; Monocyte% 7.2 % (0-10); NRBC Flagged by Analyzer 0 % (0-5); Neutrophil # 4.31 X10^3/uL (2.7-7.7); Neutrophil % 76.2 % (47-70); POSITIVE COUNT YES; RBC Distribution Width CV 13.4 % (11.6-14.6); RBC Distribution Width SD 46.8 fl (35.1-43.9); Red Blood Count 3.92 M/mm3 (4.6-6.2); White Blood Count 5.7 K/mm3 (4.4-11.0)
[2021-07-16] MEDS: 0.9% Normal Saline 1,000 ML 1000 ML IV (18:00)
[2021-07-16] MEDS: Ondansetron 4 MG/2 ML Vial IV (18:01)
[2021-07-16 18:04] VITALS: BP 126/106; PULSE 74; RESP 17; TEMP 36.6; O2SAT 97
[2021-07-16 18:07] LABS: Lipase 246 U/L (73-393); Troponin-I HS 11 pg/mL (3.0-78.0)
[2021-07-16 18:08] LABS: Differential Indicated SCAN CRITERIA MET; Platelet Count 44 K/mm3 (150-450)
[2021-07-16 18:14] LABS: Alcohol, Blood (Medical)-Serum < 3.0 mg/dL
--- NOTE | 2021-07-16 18:36 | CT_ITS ---
STUDY: CT ABDOMEN AND PELVIS WITH CONTRAST REASON FOR EXAM: Male, 51 years old. abdominal pain RADIATION DOSAGE (If Supplied By Facility): CTDIvol = ( 11.34 ) mGy, DLP = ( 487.52 ) mGycm TECHNIQUE: Transaxial images were obtained from the dome of the diaphragm to the symphysis pubis without oral contrast. IV 100mL Isovue-370 was administered. Sagittal and coronal images were reconstructed. Individualized dose optimization techniques were used for this CT. COMPARISON: None. FINDINGS: The visualized lung bases are unremarkable. The visualized portions of the heart are within normal limits. There is decreased attenuation of the liver consistent with steatosis. Normal gallbladder and extrahepatic biliary system. Normal spleen. Normal pancreas. Normal bilateral adrenal glands. Normal right kidney. Normal left kidney. Normal visualized stomach. There is mild gaseous distention of the proximal duodenum. Mild gaseous distention is also seen in the proximal jejunum. Several proximal small bowel loops are also fluid-filled but there is no evidence of focal narrowing or small bowel obstruction. Findings suggest nonspecific mild enteritis or ileus. Normal colon. There are surgical clips in the region of the appendix consistent with a prior appendectomy. There is diffuse atherosclerotic calcification of the abdominal aorta, without a demonstrated aneurysm. Normal inferior vena cava. Normal retroperitoneum. Normal urinary bladder. Normal abdominal wall. There are diffuse degenerative changes of the visualized lumbar spine. CT/Abdomen/Pelvis W IV Cont ONLY IMPRESSION: 1. mild gaseous distention of the proximal duodenum. Mild gaseous distention is also seen in the proximal jejunum. Several proximal small bowel loops are also fluid-filled but there is no evidence of focal narrowing or small bowel obstruction. Findings suggest nonspecific mild enteritis or ileus. Electronically Signed: Sanjeev Ruvalcaba MD at 20:07 EST , Service support ,
--- NOTE | 2021-07-16 18:41 | ED.VIS.GI ---
HPI HPI - GI History of Present Illness Chief Complaint: Nausea/Vomiting Narrative Narrative: 54-year-old male presenting with abdominal pain. He said to the lower mid abdomen. He has nausea and vomiting as well. Patient states that he has history of appendicitis and appendectomy. This was distantly. Patient states he does not any longer drink alcohol. Has been clean for about a year and a half. Denies drug use. He has not had fever, chills, cough. He states he is vomited multiple times and had diarrhea multiple times over the last few days. [facility] Medical History Acute appendicitis Alcohol abuse Chronic anemia COPD with acute exacerbation Former tobacco use History of alcohol abuse Hypokalemia Hyponatremia Moderate protein-calorie malnutrition Seizure Sepsis Thrombocytopenia Transaminitis Home Medications lisinopril 5 mg PO DAILY #30 tab 09/18/20 [Rx Last Taken Unknown] ondansetron 4 mg PO Q8H PRN PRN #14 tab 07/16/21 [Rx Last Taken Unknown] Allergy/AdvReac Type Severity Reaction Status Date / Time No Known Allergies Allergy Verified 07/16/21 16:36 Surgical History S/P appendectomy Social History Smoking Status: Former smoker ROS ROS ED Constitutional Constitutional ED: Denies chills or fever(s) ENT ENT ED: Denies rhinorrhea or sore throat Cardiovascular Cardiovascular: Denies chest pain or palpitations Respiratory/Chest Respiratory/Chest: Denies cough or dyspnea Gastrointestinal Gastrointestinal: Denies abdominal pain or nausea Genitourinary Genitourinary ED: Denies dysuria or hematuria Musculoskeletal Musculoskeletal: Denies arthralgias or myalgias Integumentary Denies abscess or rash Neurologic Neurologic: Denies headache(s) or weakness EXAM Physical Exam Const Vital Signs: 07/16/21 16:35 07/16/21 18:04 07/16/21 18:48 Temperature 96.8 F L 97.9 F Temperature Source Temporal Temporal Pulse Rate 116 H 74 Respiratory Rate 16 17 Blood Pressure 192/121 H 126/106 H 167/99 H Blood Pressure Mean 144 112 121 Pulse Ox 99 97 Oxygen Delivery Method Room Air Room Air 07/16/21 20:26 07/16/21 21:36 Temperature 98 F Temperature Source Temporal Pulse Rate 77 85 Respiratory Rate 16 20 H Blood Pressure 153/99 H Blood Pressure Mean 117 Pulse Ox 97 Oxygen Delivery Method Positive well nourished General Appearance ED: NAD; Negative for pallor HEENT Reports moist mucous membranes and dry mucous membranes normocephalic and atraumatic Mouth ED: Yes dry mucous membranes Mouth: dry mucous membranes Eyes PERRL and EOMs intact bilaterally General Eye ED: Negative for pale conjunctiva or scleral icterus Neck no lymphadenopathy and supple Resp normal respiratory effort and clear to auscultation bilaterally Cardio regular rate and regular rhythm GI GI Narrative: Suprapubic tenderness in the midline. Palpation: tender Neuro Sensorium / Orientation: alert, oriented to person, oriented to place and oriented to time Psych mental status grossly normal and thought process normal Skin General Skin Exam: Negative for jaundice or pallor Lesions: no lesions Rashes: no rashes MDM MDM MDM Narrative Medical decision making narrative: Patient presenting with nausea, vomiting, diarrhea. He states this is been going on for about 3 days. I obtained lab work which shows no leukocytosis. Patient is chronically lymphopenic. His platelets are also chronically low in the 44 today. Hemoglobin is stable at 13. Patient has chronic transaminitis and this seems to wax and wane over time. He states he is no longer a drinker however. Sodium is slightly low today at 125. Patient was given a liter of IV fluids. With Zofran his nausea has resolved. His creatinine is normal. Lipase is normal. EtOH is negative. Patient feeling much improved after IV fluids and Zofran as well as morphine. I obtained a CT of the abdomen pelvis which suggest enteritis or ileus. Patient comfortable going home with Zofran. He is counseled to drink plenty of fluids including electrolyte replacement. He will be discharged home in stable condition. Impression: 1. nausea/vomiting 2. Diarrhea 3. Mild hyponatremia 4. Transaminitis 5. Thrombocytopenia Lab Data Labs: Laboratory Results - last 24 hr 07/16/21 07/16/21 07/16/21 16:40 16:40 17:35 WBC 5.7 RBC 3.92 L Hgb 13.0 Hct 37.0 L MCV 94.4 H MCH 33.2 H MCHC 35.1 RDW Std Deviation 46.8 H RDW Coeff of José 13.4 Plt Count 44 L* MPV 11.3 Immature Gran % (Auto) 0.700 Neut % (Auto) 76.2 H Lymph % (Auto) 12.7 L [place] % (Auto) 7.2 Eos % (Auto) 2.5 Baso % (Auto) 0.7 Absolute Neuts (auto) 4.3 Absolute Lymphs (auto) 0.72 L Nucleated RBC % 0 Diff Path Review May foll Platelet Estimate MKD DEC RBC Morphology NORM C+C Sodium Potassium Chloride Carbon Dioxide Anion Gap BUN Creatinine Estim Creat Clear Calc Est GFR (MDRD) Af Amer Est GFR (MDRD) Non-Af BUN/Creatinine Ratio Glucose Calcium Total Bilirubin AST ALT Alkaline Phosphatase Troponin I High Sens Total Protein Albumin Globulin Albumin/Globulin Ratio Lipase Urine Color Yellow Urine Clarity Clear Urine pH 6.5 Ur Specific [place] 1.005 Urine Protein Negative Urine Glucose (UA) Normal Urine Ketones 15 H Urine Occult Blood 10 H Urine Nitrite Negative Urine Bilirubin Negative Urine Urobilinogen Normal Ur Leukocyte Esterase Negative Urine RBC 0-5 SEEN Urine WBC 0 SEEN Ur Squamous Epith Cells 0-5 SEEN Urine Bacteria 0 SEEN Urine Mucus 0 SEEN Urine Opiates Screen NEGATIVE Urine Methadone Screen NEGATIVE Ur Barbiturates Screen NEGATIVE Ur Phencyclidine Scrn NEGATIVE Ur Amphetamines Screen NEGATIVE U Methamphetamin-MDMA NEGATIVE U Benzodiazepines Scrn NEGATIVE Urine Cocaine Screen NEGATIVE U Cannabinoids Screen NEGATIVE Ur Drug Screen Comment Ethyl Alcohol 07/16/21 07/16/21 07/16/21 17:35 17:35 20:21 WBC RBC Hgb Hct MCV MCH MCHC RDW Std Deviation RDW Coeff of José Plt Count MPV Immature Gran % (Auto) Neut % (Auto) Lymph % (Auto) [place] % (Auto) Eos % (Auto) Baso % (Auto) Absolute Neuts (auto) Absolute Lymphs (auto) Nucleated RBC % Diff Path Review Platelet Estimate RBC Morphology Sodium 125 L Potassium 3.5 Chloride 85 L Carbon Dioxide 22.0 Anion Gap 18 H BUN 7 Creatinine 0.70 Estim Creat Clear Calc 125.28 Est GFR (MDRD) Af Amer 151 Est GFR (MDRD) Non-Af 125 BUN/Creatinine Ratio 10.0 Glucose 97 Calcium 9.0 Total Bilirubin 2.00 H AST 266 H ALT 135 H Alkaline Phosphatase 129 H Troponin I High Sens 11 Total Protein 8.5 H Albumin 4.0 Globulin 4.5 H Albumin/Globulin Ratio 0.9 Lipase 246 Urine Color Urine Clarity Urine pH Ur Specific [place] Urine Protein Urine Glucose (UA) Urine Ketones Urine Occult Blood Urine Nitrite Urine Bilirubin Urine Urobilinogen Ur Leukocyte Esterase Urine RBC Urine WBC Ur Squamous Epith Cells Urine Bacteria Urine Mucus Urine Opiates Screen Urine Methadone Screen Ur Barbiturates Screen Ur Phencyclidine Scrn Ur Amphetamines Screen U Methamphetamin-MDMA U Benzodiazepines Scrn Urine Cocaine Screen U Cannabinoids Screen Ur Drug Screen Comment Ethyl Alcohol < 3.0 Radiography Diagnostic Testing: Clinical Impression(s) from Imaging Studies Abdomen/Pelvis CT 07/16/21 18:36 IMPRESSION: 1. mild gaseous distention of the proximal duodenum. Mild gaseous distention is also seen in the proximal jejunum. Several proximal small bowel loops are also fluid-filled but there is no evidence of focal narrowing or small bowel obstruction. Findings suggest nonspecific mild enteritis or ileus. Electronically Signed: Sanjeev Ruvalcaba MD at 20:07 EST , Service support , Discharge Plan Triage Chief Complaint: Nausea/Vomiting ED Provider: Julio Blair Dx/Rx/DC Orders Instructions: ED Vomiting and Diarrhea ... Prescriptions: New ondansetron 4 mg tablet,disintegrating 4 mg PO Q8H PRN PRN (Reason: Nausea) Qty: 14 RF: 0 No Action lisinopril 5 MG tablet 5 mg PO DAILY Qty: 30 RF: 0 Primary Care Provider: Care Physician,No Primary Referrals: Debi Cotto MD [STAFF PHYSICIAN] - 3-5 Days Care Physician,No Primary [Primary Care Provider] - Disposition Disposition: Home, Self Care Discharge Date/Time: 07/16/21 21:36
[2021-07-16 18:44] LABS: Platelet Estimate MKD DEC (ADEQ)
[2021-07-16 18:45] LABS: Red Cell Morphology NORM C+C NORMAL (NORM C&C)
[2021-07-16 18:48] VITALS: BP 167/99
[2021-07-16 18:54] LABS: Bacteria 0 SEEN /hpf (None Seen); Mucous, Urine 0 SEEN /hpf (<or=2+); White Blood Cells 0 SEEN /hpf (0-5)
[2021-07-16] MEDS: Morphine 4 MG/ML Syringe IV (18:54)
[2021-07-16 19:03] LABS: Color, Urine Yellow (Yellow); Glucose, Dipstick Normal (Normal); Ketone-Dipstick 15 mg/dl (Negative); Leukocyte Esterase-Dipstick Negative /ul (Negative); Nitrite-Dipstick Negative (Negative); Occult Blood-Urine 10 /ul (Negative); Protein-Dipstick Negative (Negative); Specific Gravity, Urine 1.005 (1.002-1.030); Urine Bilirubin Dipstick Negative (Negative); Urine Clarity Clear (Clear); Urine Urobilinogen Normal (Normal); Urine pH 6.5 (5.0 - 8.0)
[2021-07-16 19:10] LABS: Amphetamine Urine VISTA NEGATIVE (<1000 ng/mL); Barbiturate Urine VISTA NEGATIVE (< 200 ng/mL); Benzodiazepine Urine VISTA NEGATIVE (< 200 ng/mL); Cocaine Urine VISTA NEGATIVE (< 300 ng/mL); Ecstacy Urine VISTA NEGATIVE (< 500 ng/mL); Methadone Urine VISTA NEGATIVE (< 300 ng/mL); PCP Urine VISTA NEGATIVE (< 25 ng/mL); THC Urine VISTA NEGATIVE (< 50 ng/mL); Vista UDS pH Range 6
[2021-07-16 19:26] LABS: Red Blood Cells-Urine 0-5 SEEN /hpf (0-5); Squamous Epithelial Cells - UA 0-5 SEEN /hpf (0-5)
[2021-07-16 20:26] VITALS: BP 153/99; PULSE 77; RESP 16; TEMP 36.6; O2SAT 97
[2021-07-16 21:01] LABS: ALB/GLOB Ratio 0.9 RATIO (0.9-2.4); AST(SGOT) 266 U/L (15-37); Alanine Aminotransfer ALT/SGPT 135 U/L (16-61); Alkaline Phosphatase 129 U/L (45-117); Anion Gap 18 (5-15); BUN 7 mg/dL (7-18); Chloride 85 mmol/L (98-107); EST Glomerular Filtration Rate 125 mL/min (>60); Est Glom Filt Rate - Afr Amer 151 mL/min (>60); Estimated Creatinine Clearance 125.28 ml/min; Globulin 4.5 g/dL (2.2-4.2); Glucose 97 mg/dL (74-106); Potassium 3.5 mmol/L (3.5-5.1); Protein, Total 8.5 g/dL (6.4-8.2); Sodium Level 125 mmol/L (136-145)
[2021-07-16 21:36] VITALS: PULSE 85; RESP 20
[2021-07-19 13:33] LABS: Pathologist Review Reviewed
== END 2021-07-16 21:36 | disposition home or self-care (01) ==
PROVIDERS: Emergency Provider Student in an Organized Health Care Education/Training Program; Visit Provider Student in an Organized Health Care Education/Training Program
DX: R11.2 Nausea with vomiting, unspecified (principal); J44.9 Chronic obstructive pulmonary disease, unspecified; D69.6 Thrombocytopenia, unspecified; E87.1 Hypo-osmolality and hyponatremia; R74.01 Elevation of levels of liver transaminase levels; Z87.891 Personal history of nicotine dependence; R19.7 Diarrhea, unspecified; Z87.19 Personal history of other diseases of the digestive system; Z86.19 Personal history of other infectious and parasitic diseases; Z79.899 Other long term (current) drug therapy
CPT/HCPCS: G0480; 74177; 80053; 80307; 81001; 82077; 83690; 84484; 85025; 93005; 96361; 96374; 96375; 99285; P9612; Q9967; A4216; J2405